=== PATIENT | male | born 1950 | race Caucasian/White ===

== ENCOUNTER → 2018-01-18 10:06 | Outpatient (CLI) | payer OTHER, SELFPAY ==
[2018-01-18 11:49] LABS: Hematocrit 45.5 % (41-53); Hemoglobin 15.7 g/dL (13.5-17.5); Mean Corpuscular HGB Conc 34.4 % (30-36); Mean Corpuscular Hemoglobin 33.7 PG (26-34); Mean Corpuscular Volume 97.9 fL (80-100); Platelet Count 196 X10^3/uL (150-400); Red Blood Cell Count 4.65 X10^6/uL (4.5-5.9); Red Cell Distribution Width 13.2 % (11.6-14.8); White Blood Cell Count 8.5 X10^3/uL (4.5-11.0)
[2018-01-18 12:06] LABS: BUN Creatinine Ratio 24.4 (6-22); Blood Urea Nitrogen 22 mg/dL (9-20); Calcium 9.5 mg/dL (8.4-10.2); Carbon Dioxide 27 mmol/L (22-32); Chloride 103 mmol/L (98-107); Estimated Glomerular Filt Rate > 60.0 mL/min (>60); Glucose 97 mg/dL (80-110); HEMOLYSIS < 15 (0-50); Sodium 143 mmol/L (137-145)
== END ==
PROVIDERS: Visit Provider Orthopaedic Surgery
DX: Z01.818 Encounter for other preprocedural examination (principal)
CPT/HCPCS: 36415; 80048; 85027; 93005; 93010

== ENCOUNTER → 2018-05-25 11:16 | Outpatient (CLI) | payer OTHER, SELFPAY ==
--- NOTE | 2018-05-25 11:19 | DI.RAD.S_ITS ---
PROCEDURE: XR CHEST 2V INDICATIONS: wheeze, cough TECHNIQUE: 2 views of the chest were acquired. COMPARISON: None. FINDINGS: Surgical changes and devices: Patient is status post right shoulder reverse arthroplasty. Lungs and pleura: Increased vascular markings and bilateral hilar region is seen with mild bronchial wall thickening. No focal infiltrate. No pleural effusions or pneumothorax. Mediastinum: Mediastinal contours are normal. Heart size is normal. Bones and chest wall: No suspicious bony abnormalities. Soft tissues appear unremarkable. IMPRESSION: Suggestion of mild reactive airway disease such as bronchitis or asthma. No focal infiltrate. Dictated by: Deven Borges M.D. on 05/25/2018 at 12:04 Approved by: Deven Borges M.D. on 05/25/2018 at 12:05
== END ==
PROVIDERS: PCP Nurse Practitioner Family; Visit Provider Nurse Practitioner Family
DX: R06.2 Wheezing (principal); R05 Cough
CPT/HCPCS: 71046

== ENCOUNTER → 2018-06-16 13:06 | Outpatient (CLI) | payer OTHER, SELFPAY ==
--- NOTE | 2018-06-16 | DI.CT.S_ITS ---
PROCEDURE: CT ABDOMEN W CON INDICATIONS: ABDOMINAL AORTIC ANEURYSM TECHNIQUE: After the administration of intravenous contrast, 5 mm thick sections acquired from the diaphragm to the iliac crests. 5 mm coronal and sagittal reformats were performed. For radiation dose reduction, the following was used: automated exposure control, adjustment of mA and/or kV according to patient size. COMPARISON: Outside Facility, , CT ABDOMEN/PELVIS WITH CONTRAST, 06/22/2016, 11:10. None. FINDINGS: Image quality: Excellent. Lung bases: Lung bases are clear. Heart size is normal. Coronary artery calcifications are present. Solid organs: Diffuse hepatic steatosis. Gallbladder negative. Biliary system is non dilated. Pancreas enhances normally. Spleen is normal in size and enhancement. No adrenal nodules. Bilateral renal cortical atrophy and scarring. Bilateral hilar vascular calcifications are noted. No hydronephrosis. Peritoneum and bowel: Bowel loops demonstrate normal wall thickness and caliber. No free fluid or air. Colonic diverticulosis is seen without evidence of acute complication. Nodes and vessels: Aneurysmal ectasia of the infrarenal abdominal aorta measuring 3.3 x 3.0 cm. There is scattered atheromatous calcified plaques. Miscellaneous: No ventral hernias. Diffuse spondylosis IMPRESSION: Mild aneurysmal ectasia of the infrarenal abdominal aorta. Overall, this is unchanged since 06/22/16. Continued surveillance with serial annual ultrasound examinations could be performed as clinically warranted. Dictated by: Eric Hampton M.D. on 06/16/2018 at 17:14 Approved by: Eric Hampton M.D. on 06/16/2018 at 17:30
== END ==
PROVIDERS: PCP Nurse Practitioner Family; Visit Provider Family Medicine
DX: I71.4 Abdominal aortic aneurysm, without rupture (principal)
CPT/HCPCS: 74160; Q9967

== ENCOUNTER 2019-03-26 10:15 | Day surgery (SDC) | payer OTHER, SELFPAY ==
--- NOTE | 2019-03-26 | PATH_ITS ---
[facility] Accession Number: [id number] . 01 Material submitted: . pylorus - PYLORUS BIOPSIES . 02 Diagnosis: Pylorus, Biopsies: Gastric antral-type mucosa with mild chronic inflammation and features of reactive gastropathy. Negative for Helicobacter organisms by immunohistochemistry. Negative for intestinal metaplasia. Negative for dysplasia or malignancy. [facility] 03/28/2019 1449 Local . 02 Electronically signed: . Sigifredo Johnson MD, PhD, Pathologist NPI- [id number] . 01 Gross description: . PYLORUS BIOPSIES: Received in formalin are 3 fragment(s) of [place], soft tissue measuring 0.1 x 0.1 x 0.1 cm to 0.4 x 0.1 x 0.1 cm submitted entirely in 1 cassette(s) /[facility] 03/26/2019 2233 Local . 02 Microscopic: . An immunohistochemical stain was performed to evaluate for Helicobacter organisms and is negative. The control stain showed appropriate reactivity. . * This test was developed and its performance characteristics determined by [facility]. It has not been cleared or approved by the U.S. Food and Drug Administration. The FDA has determined that such clearance or approval is not necessary. This test is used for clinical purposes. It should not be regarded as investigational or for research. . 02 Pathologist provided ICD-10: K31.9 . 02 CPT . 728969, [id number] Performed at: 01 [facility] [address] [facility], [place], [place] [id number] MD Rony Soni MD Phone: [phone] Performed at: 02 [facility] [id number] [place], [place] [id number] MD Dalila Cooney MD Phone: [phone]
[2019-03-26 10:57] VITALS: BP 159/81; PULSE 86; RESP 20; TEMP 36.2; O2SAT 96; BMI 34.3
[2019-03-26] MEDS: SODIUM CHLORIDE 0.9% 1,000 ML 100 ML IV (11:45)
--- NOTE | 2019-03-26 11:48 | P.HP_ITS ---
History of Present Illness History of Present Illness Date Patient Seen: 03/26/19 Time Patient Seen: 11:49 Chief complaint: [id number] Narrative: Patient has history of gastroesophageal reflux disease recently worsening. He is not currently on antacid medication and is referred here for esophagoduodenoscopy. In addition his last colonoscopy was 3 years ago demonstrated numerous adenomatous polyps which were removed. Patient presents for colorectal screening. He is a 1st degree family relative with colon cancer. On further history denies any recent gastrointestinal symptoms. No nausea, vomiting, abdominal pain, loss of appetite, unexplained weight loss, change in bowel habits, diarrhea, constipation, melena, hematochezia, or bright red blood per rectum. Patient History Medical History Diverticulosis (Acute) HTN (hypertension) (Acute) Surgical History H/O colectomy (Acute) Family & Social History Social History: household members spouse Tobacco & Substance use: Smoking Status Former smoker alcohol intake frequency 0-2 drinks per day Substance Use Type does not use Meds Home Medications and Allergies Home Medications Medication Instructions Recorded Confirmed Type allopurinol 100 mg tablet 100 mg PO DAILY 05/25/18 03/26/19 History aspirin 81 mg tablet,delayed 81 mg PO DAILY 05/25/18 03/26/19 History release clonidine HCl 0.1 mg tablet 0.1 mg PO DAILY tab 05/25/18 03/26/19 History gabapentin 300 mg capsule 600 mg PO TID 05/25/18 03/26/19 History hydrochlorothiazide 25 mg tablet 25 mg PO DAILY 05/25/18 03/26/19 History lisinopril 30 mg tablet 30 mg PO DAILY 05/25/18 03/26/19 History naproxen sodium 220 mg capsule 440 mg PO DAILY cap 05/25/18 03/26/19 History pravastatin 40 mg tablet 40 mg PO DAILY 05/25/18 03/26/19 History tamsulosin 0.4 mg capsule 0.4 mg PO DAILY 05/25/18 03/26/19 History Allergies Allergy/AdvReac Type Severity Reaction Status Date / Time No Known Drug Allergies Allergy Verified 03/26/19 10:51 Review of Systems Review of Systems Narrative: A 10 point review of systems is negative except as noted in the HPI Exam Vital Signs (past 8 hours): - 03/26/19 10:57 Temperature 97.1 F L Pulse Rate 86 Respiratory Rate 20 Blood Pressure 159/81 H Pulse Oximetry 96 Oxygen Delivery Method Room Air Narrative Exam Narrative: General-no acute distress, well nourished HEENT-moist mucous membranes, no scleral icterus Neck-supple, no lymphadenopathy Chest- non labored respirations, clear to auscultation bilaterally Cardiac-regular rate no peripheral edema Abdomen-soft, nontender, non distended Extremities-warm, well perfused Neurological-alert and oriented, no focal deficits Assessment & Plan Assessment and plan (1) Screening for colon cancer: Current visit: Yes Status: Acute (2) GERD (gastroesophageal reflux disease): Current visit: Yes Status: Acute Assessment & Plan narrative: The patient requires colorectal screening and colonoscopy is recommended. In addition he has worsening symptoms of g astroesophageal reflux disease and esophagoduodenoscopy is recommended. Technical details were discussed. Risks, benefits, alternatives explained. Risks including but not limited to myocardial infarction, aspiration, bleeding, pain, missed lesion, incomplete examination, need for further radiographic studies, colonic perforation, and need for major abdominal surgery were discussed. All questions were answered to their satisfaction, and they are in agreement with this plan.
--- NOTE | 2019-03-26 12:13 | PM.OP.ENDO ---
Operative Date/Time/Diagnoses Date of procedure: 03/26/19 Time of procedure: 12:13 Pre-op diagnosis: Gastroesophageal reflux Screening colonoscopy Post-op diagnosis: same Procedure & Clinicians Study performed: Esophagoduodenoscopy Colonoscopy Same procedure as scheduled: Yes Indications: 68-year-old male with worsening gastroesophageal reflux disease and epigastric pain and last colonoscopy 3 years ago with multiple polyps and a family history of colon cancer in first-degree relative. Surgeon: Sandor Rivera Procedure Notes SCOAP/Timeout: Performed Procedure in detail: Patient placed in left lateral decubitus position. Time out was performed. Procedural sedation was administered with Versed and Fentanyl. A bite block was placed. the scope was inserted into the mouth and advanced through the esophagus and into the stomach. The pylorus was intubated and the duodenum was normal. The scope was retroflexed within the stomach and there was a hiatal hernia. There were no ulcers but there was moderate gastritis of the pyloric channel. For random biopsies were taken of the gastritis. The scope was withdrawn into the esophagus the Z line was seen at 35 cm from the incisions. There was no bernal's esophagitis or masses or strictures. Stomach was desufflated and scope removed. Patient tolerated procedure well. Patient placed in left lateral decubitus position. Time out was performed. Procedural sedation was administered with Versed and Fentanyl. A rectal exam demonstrated no external hemorrhoids no internal masses. Colonoscopy scope was placed into the rectum and advanced through the colon to the cecum. The ileocecal valve was identified. The scope was then slowly withdrawn examining colon thoroughly in all directions. The colonoscopy was notable for the following 1. Guerrero diverticulosis 2. No masses or polyps 3. Quality of prep fair Scope withdrawal time: 6 Sedation minutes: 20 Findings: diverticulosis and gastritis Specimen(s): other (Pyloric channel) Complications: none Impression: Gastritis Post-procedure Recommendations: Colonscopy in 5 years Plan for aftercare: Omeprazole
[2019-03-26] MEDS: MIDAZOLAM 5 MG/5 ML VIAL IV (12:16)
[2019-03-26] MEDS: fentaNYL 250 MCG/5 ML INJ IV (12:16)
[2019-03-26] MEDS: LIDOCAINE 4% SOLN 50 ML 20 ML TOP (12:17)
[2019-03-26 12:21] VITALS: BP 124/75; PULSE 69; RESP 15; TEMP 36.6; O2SAT 95
[2019-03-26 12:24] VITALS: BP 120/65; PULSE 81; RESP 16; O2SAT 94
[2019-03-26 12:40] VITALS: BP 122/75; PULSE 76; RESP 16; TEMP 36.4; O2SAT 96
--- NOTE | 2019-03-26 15:07 | SUR.PHASEII ---
Late entry: Care assumed from Tamika. brought in, d/c instructions discussed with both, both voiced an understanding. Pt left when ready and left when ready and in stable condition.
== END 2019-03-26 12:50 | disposition home or self-care (01) ==
PROVIDERS: PCP Nurse Practitioner Family; Referring Provider Surgery; Visit Provider Surgery
PROC: 0DJ08ZZ Inspection of Upper Intestinal Tract, Via Natural or Artificial Opening Endoscopic (ICD-10-PCS; CPT 43235; principal; 2019-03-26 11:30)
PROC: 0DJD8ZZ Inspection of Lower Intestinal Tract, Via Natural or Artificial Opening Endoscopic (ICD-10-PCS; CPT 45378; 2019-03-26 11:30)
DX: K29.50 Unspecified chronic gastritis without bleeding (principal); Z12.11 Encounter for screening for malignant neoplasm of colon; K57.30 Diverticulosis of large intestine without perforation or abscess without bleeding; K21.9 Gastro-esophageal reflux disease without esophagitis; K44.9 Diaphragmatic hernia without obstruction or gangrene
CPT/HCPCS: 43239; G0105; 99152; J2250; J3010

== ENCOUNTER → 2019-08-09 08:29 | Outpatient (CLI) | payer OTHER, SELFPAY ==
--- NOTE | 2019-08-09 09:13 | DI.CT.S_ITS ---
PROCEDURE: CT ABDOMEN PELVIS W CON INDICATIONS: Abdominal aortic aneurysm, without rupture TECHNIQUE: After the administration of intravenous contrast, 5 mm thick sections acquired from the diaphragm to the symphysis. 5 mm coronal and sagittal reformats were acquired. For radiation dose reduction, the following was used: automated exposure control, adjustment of mA and/or kV according to patient size. COMPARISON: [facility], CT, CT ABDOMEN W CON, 06/16/2018, 13:52. FINDINGS: Image quality: Excellent. ABDOMEN: Lung bases: Lung bases are clear. Heart size is normal. Solid organs: Liver is normal in size and enhancement. Gallbladder appears normal. Biliary system is non dilated. Pancreas enhances normally. Spleen is normal in size and enhancement. No adrenal nodules. Kidneys demonstrate normal size and enhancement, without hydronephrosis. Peritoneum and bowel: Bowel loops demonstrate normal wall thickness and caliber. No free fluid or air. Nodes and vessels: No retroperitoneal or mesenteric adenopathy by size criteria. Aorta and inferior vena cava are little if any changed in size, with the mid to distal abdominal aortic aneurysm having previously measured 3.3 cm in maximal axial dimension and in the same area the aortic diameter is 3.5 cm. No iliac artery aneurysm is associated. Miscellaneous: No ventral hernias. PELVIS: Genitourinary: Bladder wall thickness is normal. Miscellaneous: No inguinal hernias or adenopathy. There is a finding of multiple metallic prostate carcinoma radiation seed therapy implants within the prostate, and no associated mass lesion is found. Bones: No suspicious bony lesions. No vertebral body compression fractures. IMPRESSION: 1. A mild mid to distal abdominal aortic aneurysm, fusiform, appears to have slightly enlarged by 2 mm from the study performed approximately one year ago. Contrast enhanced CT scanning is not necessary for followup of this finding but rather obtaining a baseline aortic ultrasound assessment and yearly followup by ultrasound is recommended instead. 2. Prostate radiation therapy seed implants, no evidence of mass lesion at the prostate area, or development of osseous metastatic disease. Dictated by: Luan Boss M.D. on 08/09/2019 at 9:49 Approved by: Luan Boss M.D. on 08/09/2019 at 9:56
== END ==
PROVIDERS: PCP Nurse Practitioner Family; Referring Provider Family Medicine; Visit Provider Family Medicine
DX: I71.4 Abdominal aortic aneurysm, without rupture (principal)
CPT/HCPCS: 74177; Q9967

== ENCOUNTER → 2020-09-29 09:11 | Outpatient (CLI) | payer OTHER, SELFPAY ==
--- NOTE | 2020-09-29 | DI.US.S_ITS ---
PROCEDURE: US ABD AORTA ANEURYSM SCREEN INDICATIONS: ABDOMINAL AORTIC ANEURYSM WITHOUT RUPTURE TECHNIQUE: Real time scanning was performed of the aorta and iliac arteries, with image documentation. COMPARISON: [facility], CT, CT ABDOMEN W CON, 06/16/2018, 13:52. [facility], CT, CT ABDOMEN PELVIS W CON, 08/09/2019, 9:10. FINDINGS: Aorta: Proximal aortic diameter measures 2.5 cm. Mid-aorta measures 2.1 cm. There is a mild distal abdominal aortic aneurysm seen that measures 3.3 cm transversely by 2.8 cm AP, with a craniocaudal extent of 2.9 cm. Iliac arteries: Right common iliac artery measures 1.3 cm. Left common iliac artery measures 1.5 cm. IMPRESSION: A distal abdominal aortic aneurysm is seen that measures 3.3 cm transversely by 2.8 cm AP. Previously, this measured 3.5 cm AP. Dictated by: Zhou Kim M.D. on 09/29/2020 at 9:14 Approved by: Zhou Kim M.D. on 09/29/2020 at 9:16
== END ==
PROVIDERS: PCP Nurse Practitioner Family; Referring Provider Nurse Practitioner Family; Visit Provider Nurse Practitioner Family
DX: I71.4 Abdominal aortic aneurysm, without rupture (principal)
CPT/HCPCS: 76706

== ENCOUNTER → 2021-09-24 09:17 | Outpatient (CLI) | payer MEDICARE, SELFPAY ==
--- NOTE | 2021-09-24 | DI.US.S_ITS ---
PROCEDURE: US RETRO PERITONEAL LIMITED INDICATIONS: Abdominal aortic aneurysm, without rupture TECHNIQUE: Real time scanning was performed of the aorta and iliac arteries, with image documentation. COMPARISON: [facility], CT, CT ABDOMEN W CON, 06/16/2018, 13:52. [facility], CT, CT ABDOMEN PELVIS W CON, 08/09/2019, 9:10. Outside Facility, RG, CT ABDOMEN/PELVIS WITH CONTRAST, 06/22/2016, 11:10. FINDINGS: Aorta: Proximal aortic diameter measures 3 cm. Mid-aorta measures 2.8 cm. There is again seen a distal abdominal aortic aneurysm, which measures 3 cm AP x 3.5 cm transversely, previously measured 2.8 x 3.3 cm. Iliac arteries: Right common iliac artery measures 1.7 cm. Left common iliac artery measures 1.7 cm. IMPRESSION: Mild distal abdominal aortic aneurysm, which is slightly increased in size compared to the prior examination. Dictated by: Zhou Kim M.D. on 09/24/2021 at 9:08 Approved by: Zhou Kim M.D. on 09/24/2021 at 9:10
== END ==
PROVIDERS: PCP Family Medicine; Referring Provider Family Medicine; Visit Provider Family Medicine
DX: I71.4 Abdominal aortic aneurysm, without rupture (principal)
CPT/HCPCS: 76775

== ENCOUNTER → 2022-07-23 08:27 | Outpatient (CLI) | payer MEDICARE, SELFPAY ==
--- NOTE | 2022-07-23 | DI.RAD.S_ITS ---
PROCEDURE: XR LUMBAR SPINE 2-3V INDICATIONS: Spinal stenosis, lumbar region without neurogenic claudicati TECHNIQUE: 3 views of the lumbar spine were acquired. COMPARISON: [facility], US, US RETRO PERITONEAL LIMITED, 09/24/2021, 10:25. [facility], CT, CT ABDOMEN PELVIS W CON, 08/09/2019, 9:10. FINDINGS: Bones: 5 kyb-lok-iwwcitw vertebrae are present. There is 5 mm of retrolisthesis of L2 on L3. 8 mm of retrolisthesis of L3 on L4. Posterior fusion hardware and interbody device placement at L4-L5. Multilevel disc space narrowing and endplate osteophyte formation, as well as facet hypertrophy. No vertebral body compression fractures. No suspicious bony lesions. Soft tissues: Overlying bowel gas pattern is normal. No suspicious soft tissue calcifications. Aneurysmal dilatation of the infrarenal abdominal aorta measuring roughly 42 mm. IMPRESSION: 1. Multilevel degenerative disc and facet disease. 2. Postsurgical sequelae. 3. Infrarenal abdominal aortic aneurysm. Dictated by: Miguel Shirley M.D. on 07/23/2022 at 10:51 Transcribed by: PRABHAKAR on 07/23/2022 at 10:52 Approved by: Miguel Shirley M.D. on 07/23/2022 at 10:59
== END ==
PROVIDERS: PCP Family Medicine; Referring Provider Family Medicine; Visit Provider Family Medicine
DX: M48.061 Spinal stenosis, lumbar region without neurogenic claudication (principal); M47.816 Spondylosis without myelopathy or radiculopathy, lumbar region; M51.36 Other intervertebral disc degeneration, lumbar region; I71.40 Abdominal aortic aneurysm, without rupture, unspecified; Z98.1 Arthrodesis status
CPT/HCPCS: 72100

== ENCOUNTER → 2022-09-29 09:43 | Outpatient (CLI) | payer MEDICARE, SELFPAY ==
--- NOTE | 2022-09-29 | DI.US.S_ITS ---
PROCEDURE: US ABD AORTA ANEURYSM SCREEN INDICATIONS: ABDOMINAL AORTIC ANEURYSM TECHNIQUE: Real time scanning was performed of the aorta and iliac arteries, with image documentation. COMPARISON: [facility], , ABD AORTA ANEURYSM SCREEN, 09/29/2020, 9:25. FINDINGS: Aorta: Proximal aortic diameter measures 2.2 cm. Mid-aorta measures 2.5 cm. Distal aortic diameter is 3.2 cm. Iliac arteries: Right common iliac artery measures 1.3 cm. Left common iliac artery measures 1.5 cm. IMPRESSION: Mild distal aortic aneurysm. Dictated by: Miguel Shirley M.D. on 09/29/2022 at 13:27 Approved by: Miguel Shirley M.D. on 09/29/2022 at 13:28
== END ==
PROVIDERS: PCP Family Medicine; Referring Provider Family Medicine; Visit Provider Family Medicine
DX: I71.40 Abdominal aortic aneurysm, without rupture, unspecified (principal)
CPT/HCPCS: 76706

== ENCOUNTER → 2022-11-30 07:46 | Outpatient (CLI) | payer MEDICARE, SELFPAY ==
--- NOTE | 2022-11-30 | DI.MRI.S_ITS ---
PROCEDURE: MR LUMBAR SPINE WO CON INDICATIONS: SPINAL STENOSIS TECHNIQUE: Noncontrast sagittal T1 spin echo and T2 fast echo, sagittal STIR, and T2 fast spin echo through the lumbar spine. In cases with scoliosis, additional coronal T2 fast spin echo may be performed. COMPARISON: [facility], MR, MR LUMBAR SPINE WITHOUT CONTRAST, 12/16/2017, 10:15 (images only, no report). [facility], CR, XR THORACIC SPINE 2 VIEWS, 11/15/2022, 10:16. [facility], CR, XR LUMBAR SPINE 2-3V, 07/23/2022, 8:24. FINDINGS: Image quality: There is artifact associated with the metallic hardware, including from the spinal stimulator. This examination is limited by involuntary motion artifact. Alignment and Curvature: There is minimal retrolisthesis seen at L2-L3 and L3-L4. Bone Marrow: Marrow is of normal overall signal. No acute vertebral body compression fractures. Spinal Cord: Conus medullaris terminates at the L1 level. Visualized cord demonstrates normal signal and size. Paraspinous Soft Tissues: No paravertebral masses. T12-L1: Mild loss of disc height is seen. Loss of disc signal is seen. Mild generalized disc bulge is seen. No significant neural foraminal or central canal narrowing can be seen. No significant change from the prior. L1-L2: The disc height is well-preserved. Loss of disc signal is seen at this level. Mild to moderate disc bulge is seen, which is slightly eccentric to the right. Mild facet joint hypertrophy is seen. These imaging findings have progressed compared to the prior study. L2-L3: Moderate loss of disc height is seen. Loss of disc signal is seen. Reactive marrow endplate changes are seen, which are hyperintense on T1-weighted and T2-weighted imaging and most consistent with fatty metaplasia (Modic type II changes). At least moderate disc bulge is seen, which is eccentric to the right. Mac VIII facet there is moderate left-sided and at least moderate right-sided neural foraminal narrowing. At least moderate central canal narrowing is seen at this level. These imaging findings have progressed compared to the prior study. L3-L4: At least moderate loss of disc height and disc signal can be seen. Reactive marrow endplate changes are seen which are hypointense on T1-weighted imaging and hyperintense on T2 weighted imaging, which is most consistent with edema (Modic type I changes). At least moderate disc bulge is seen, with a central disc protrusion. There is mild right-sided and moderate left-sided facet hypertrophy. There is moderate to severe bilateral neural foraminal narrowing, left worse than right. There is a degree of compression seen upon the exiting nerve roots. Severe central canal narrowing is seen, as on series 5, image 22. These degenerative changes are progressed compared to 2018. L4-L5: Postoperative changes are seen, with bilateral pedicle screws at L4 and L5. Vertical fixation rods are seen. There is a disc spacer seen at the L4-L5 level. Moderate generalized disc bulge is seen. Moderate facet joint hypertrophy is seen. There is at least moderate left-sided and moderate right-sided neural foraminal narrowing. Mild central canal narrowing is seen. When comparison is made with the prior images, these findings are similar. L5-S1: Moderate to severe loss of disc height and disc signal can be seen. At least moderate disc bulge is seen at this level. There is a right foraminal disc protrusion. Moderate facet joint hypertrophy is seen. There is at least moderate bilateral neural foraminal narrowing seen. There is a degree of compression seen upon the exiting nerve roots. Mild to moderate central canal narrowing is seen. These degenerative changes are slightly progressed compared to the prior. IMPRESSION: Multiple levels of lumbar spine degenerative change are seen, which are progressed at several levels compared to 2018. Stable L4-L5 postoperative change. Dictated by: Zhou Kim M.D. on 11/30/2022 at 11:57 Approved by: Zhou Kim M.D. on 11/30/2022 at 12:03
--- NOTE | 2022-11-30 | DI.MRI.S_ITS ---
PROCEDURE: MR SHOULDER LT WO CON INDICATIONS: NONTRAUMATIC TEAR OF LEFT ROTATOR TECHNIQUE: Noncontrast oblique coronal T2 fast spin echo with fat saturation, oblique sagittal T1 spin echo and T2 fast spin echo with fat saturation, axial T1 spin echo and T2 fast spin echo with fat saturation through the shoulder. COMPARISON: [facility] [place], CR, XR SHOULDER 2+ VIEWS LEFT, 11/08/2022, 9:36. FINDINGS: Image quality: Patient was unable views dedicated shoulder coil due to body habitus, with resulting image degradation and decreased signal to noise ratio. Diagnostic information is obtained. Rotator cuff: There is full-thickness tearing of the supraspinatus tendon and the infraspinatus tendon from their distal insertions with proximal tendon retraction medial to the glenoid rim. Teres minor tendon is grossly intact. The subscapularis tendon demonstrates tendinosis and low-grade partial intrasubstance tearing. There is severe atrophy and severe fatty infiltration of the supraspinatus and infraspinatus muscles. The teres minor and subscapularis muscles are normal in bulk. Bones and bursae: No acute trabecular bone injury or fracture. Humeral head is high riding and abuts the undersurface of the acromion. Diffuse full-thickness cartilage loss is seen throughout the glenohumeral joint with subchondral cystic changes and edema, marginal osteophyte formation, and remodeling of the articular surfaces. Moderate to severe degenerative changes are seen at the acromioclavicular joint with bulky marginal osteophytes. A moderate glenohumeral joint effusion communicates with the subacromial/subdeltoid bursa. There is somewhat prominent fluid in the superior subscapularis recess. Mild synovial hypertrophy is noted. Capsule and soft tissues: There is diffuse labral degeneration and chronic degenerative tearing. The proximal biceps long head tendon is poorly visualized related to image degradation, but is suspected to be torn and distally retracted. No obvious capsular defect is seen. IMPRESSION: 1. Chronic complete tearing of the supraspinatus and infraspinatus tendons with proximal tendon retraction beyond/medial to the glenoid rim. Severe atrophy and fatty infiltration of the supraspinatus and infraspinatus muscles. High-riding humeral head abuts the undersurface of the acromion. 2. Low-grade partial intrasubstance tearing of the subscapularis tendon at the distal insertion superimposed on chronic tendinosis. 3. Biceps long head tendon is poorly visualized, and is suspected to be chronically torn and distally retracted. 4. Severe glenohumeral osteoarthrosis with diffuse full-thickness cartilage loss, subchondral cystic changes and edema, and remodeling of the articular surfaces. 5. Moderate to severe acromioclavicular osteoarthrosis. 6. Moderate glenohumeral effusion communicates with the subacromial/subdeltoid bursa. Approved by: Shabbir Reyes M.D. on 11/30/2022 at 14:12
== END ==
PROVIDERS: PCP Family Medicine; Referring Provider Orthopaedic Surgery; Visit Provider Orthopaedic Surgery
DX: M48.062 Spinal stenosis, lumbar region with neurogenic claudication (principal); M75.122 Complete rotator cuff tear or rupture of left shoulder, not specified as traumatic; M62.512 Muscle wasting and atrophy, not elsewhere classified, left shoulder; M19.012 Primary osteoarthritis, left shoulder; M25.412 Effusion, left shoulder; Z98.1 Arthrodesis status
CPT/HCPCS: 72148; 73221

== ENCOUNTER → 2023-01-27 09:47 | Outpatient (CLI) | payer MEDICARE, SELFPAY ==
--- NOTE | 2023-01-27 09:49 | DI.CT.S_ITS ---
PROCEDURE: CT LUMBAR SPINE WO CON INDICATIONS: SPINAL STENOSIS TECHNIQUE: Noncontrast 3 mm thick sections acquired from the T12 level to the sacrum. Sagittal and coronal reformats were constructed. For radiation dose reduction, the following was used: automated exposure control. COMPARISON: None. FINDINGS: Image quality: Excellent. Bones: There is normal bony alignment. No acute vertebral body compression fractures. No suspicious lytic or blastic bony lesions. No pars defects. L4-5 interbody fusion with good graft incorporation and posterior guzman and screw instrumentation in good position. Posterior left subcutaneous epidural stimulator a pulse generator noted with leads extending into the thoracic epidural space. T12-L1: Disc space narrowing with circumferential disc bulge results in mild central stenosis. No foraminal stenosis. L1-L2: Disc space narrowing with disc bulge and mild central stenosis. No central stenosis. Moderate bilateral foraminal stenosis greater on the right. L2-L3: Disc space narrowing with vacuum disc phenomena and circumferential disc bulge results in [id number] central stenosis. Moderate right and mild left foraminal stenosis. L3-L4: Disc space narrowing with circumferential disc bulge and hypertrophic facet joints present. Moderate central stenosis present. Severe bilateral foraminal stenosis. L4-L5: Discectomy and fusion with right laminotomy. Mild central stenosis. Mild bilateral foraminal stenosis. L5-S1: Disc space narrowing present. No central stenosis. Severe bilateral foraminal stenosis associated with hypertrophic facet joints Soft tissues: Small infrarenal abdominal aortic aneurysm measures 3.3 cm in diameter. Diffuse atherosclerotic vascular calcification. Sigmoid colon end-to- side anastomosis intact. IMPRESSION: Multilevel degenerative disc disease and arthropathy results in varying degrees of central and foraminal stenosis including severe bilateral foraminal stenosis L5-S1 and moderate central stenosis L3-4 Instrumented interbody fusion L4-5 Approved by: Aldo Keita M.D. on 01/27/2023 at 15:04
== END ==
PROVIDERS: PCP Family Medicine; Referring Provider Orthopaedic Surgery Orthopaedic Surgery of the Spine; Visit Provider Orthopaedic Surgery Orthopaedic Surgery of the Spine
DX: M48.062 Spinal stenosis, lumbar region with neurogenic claudication (principal); M48.07 Spinal stenosis, lumbosacral region; M51.36 Other intervertebral disc degeneration, lumbar region; M47.816 Spondylosis without myelopathy or radiculopathy, lumbar region; M47.817 Spondylosis without myelopathy or radiculopathy, lumbosacral region; I71.40 Abdominal aortic aneurysm, without rupture, unspecified; Z98.0 Intestinal bypass and anastomosis status; Z98.1 Arthrodesis status
CPT/HCPCS: 72131

== ENCOUNTER → 2023-02-18 09:17 | Outpatient (CLI) | payer MEDICARE, SELFPAY ==
[2023-02-18 11:36] LABS: Add Manual Diff / Slide Review NO; Basophils Absolute Auto 0 /uL (0-100); Basophils Percent Auto 0.5 % (0-2); Eosinophils Absolute Auto 400 /uL (0-450); Eosinophils Percent Auto 4.6 % (2-4); Hematocrit 43.2 % (41-53); Hemoglobin 15.2 g/dL (13.5-17.5); Lymphocytes Absolute Auto 1500 /uL (1100-4500); Lymphocytes Percent Auto 16.5 % (25-40); Mean Corpuscular HGB Conc 35.1 % (30-36); Mean Corpuscular Hemoglobin 34.5 PG (26-34); Mean Corpuscular Volume 98.2 fL (80-100); Monocytes Absolute Auto 800 /uL (0-900); Monocytes Percent Auto 8.5 % (3-14); Neutrophils Absolute Auto 6300 /uL (1500-7000); Neutrophils Percent Auto 69.9 % (50-75); Platelet Count 179 X10^3/uL (150-400); Red Cell Distribution Width 13.2 % (11.6-14.8)
[2023-02-18 12:06] LABS: Hemoglobin A1C% w Est Avg Glu 5.7 % (4.0-6.0)
[2023-02-18 12:07] LABS: BUN Creatinine Ratio 24.4 (6-22); Blood Urea Nitrogen 20 mg/dL (9-20); Calcium 9.9 mg/dL (8.4-10.2); Carbon Dioxide 24 mmol/L (22-32); Chloride 99 mmol/L (98-107); Estimated Glomerular Filt Rate > 60 mL/min (>60); Glucose 115 mg/dL (80-110); HEMOLYSIS 25 (0-50); Potassium 4.1 mmol/L (3.4-5.1); Sodium 134 mmol/L (137-145)
== END ==
PROVIDERS: PCP Family Medicine; Referring Provider Orthopaedic Surgery Orthopaedic Surgery of the Spine; Visit Provider Orthopaedic Surgery Orthopaedic Surgery of the Spine
DX: Z01.818 Encounter for other preprocedural examination (principal); R73.9 Hyperglycemia, unspecified; Z01.812 Encounter for preprocedural laboratory examination
CPT/HCPCS: 36415; 80048; 83036; 85025; 93005

== ENCOUNTER 2023-04-13 06:20 | Inpatient (IN) | payer MEDICARE, SELFPAY ==
[2023-04-13] VITALS (28 sets, daily range): BP systolic 75–167; BP diastolic 49–92; PULSE 61–102; RESP 7–98; TEMP 36.3–36.7; O2SAT 88–98; BMI 33.7
--- NOTE | 2023-04-13 | DI.RAD.S_ITS ---
PROCEDURE: XR LUMBAR SPINE 2-3V INDICATIONS: L3-4 L5-S1 TLIF TECHNIQUE: 3 views of the lumbar spine were acquired. COMPARISON: [facility], [place], XR LUMBAR SPINE 2-3V, 07/23/2022, 8:24. FINDINGS: Intra operative images demonstrating posterior fusion at L3-4 L4-5 and L5-S1. Hardware is intact with good alignment. IMPRESSION: Intraoperative posterior fusion. Dictated by: Batsheva Dozier M.D. on 04/13/2023 at 21:29 Approved by: Batsheva Dozier M.D. on 04/13/2023 at 21:29
[2023-04-13] MEDS: LACTATED RINGERS 1,000 ML 42 ML IV ×4 (07:24→14:50)
--- NOTE | 2023-04-13 07:38 | PM.PREOP ---
Pre-operative Note Interval Note History & Physical reviewed/Exam performed by Physician: Yes Changes to H&P: No
[2023-04-13] MEDS: CEFAZOLIN VIAL 3 GM in SODIUM CHLORIDE 0.9% 100 ML IV ×2 (08:10→16:08)
--- NOTE | 2023-04-13 08:29 | SUR.OPER ---
Prone on spine table, head in foam head support, padded chest and pelvic supports, gel pad at knees, lower legs supported by pillows; nipples, genitalia and toes free of pressure, arms secured on foam padded arm boards at <90 degrees abduction. Tape over blanket at thigh secured to table.
[2023-04-13] MEDS: BUPIVACAINE 0.25% (PF) 60 ML, EPINEPHrine 0.15 MG INJ (08:45)
[2023-04-13] MEDS: BUPIVACAINE LIPOSOME 266 MG/20 ML VIAL INJ (08:46)
--- NOTE | 2023-04-13 13:16 | P.OP_ITS ---
Operative Date/Time/Diagnoses Date of procedure: 04/13/23 Time of procedure: 07:40 Pre-op diagnosis: 1. L3-4, L5-S1 foraminal stenosis 2. History of L4-5 fusion with hardware 3. Failed back fusion syndrome 4. History spinal cord stimulator implantation 5. Lumbar radiculopathy Post-op diagnosis: same Procedure & Clinicians Procedure: 1. L3-4, L5-S1 posterolateral and posterior interbody fusion 2. L3-4, L5-S1 posterior interbody cage placement 3. L4-5 posterior non-segmental instrumentation removal 4. L4-5 revision laminectomy with exploration of fusion 5. L3-4, L4-5, L5-S1 posterior segmental instrumentation with pedicle screw placement 6. [place] of bone marrow from iliac crest through a separate incision 7. Utilization of microsurgical technique and operating microscope 8. Utilization robotic assisted navigation Same procedure as scheduled: Yes Indications: Patient has been having chronic back pain and worsening lumbar radiculopathy. Patient had previous L4-5 fusion but did not have improvement of his back pain and leg pain mostly on the left side. Patient also had a prior spinal cord stimulator 3 years ago which stopped providing him relief. He has not been using his spinal cord stimulator for over a year and would like to have it removed. He was found to have severe neural foraminal stenosis at L3-4 and L5-S1 b ilaterally correlating with his current symptoms. Patient failed multiple conservative management with worsening pain weakness and numbness in his lower extremity. Patient has been having difficulty performing activity of daily living. After discussing risks benefits of treatment options, patient elected proceed with surgery. Surgeon: Ale Mendoza Hose Cementer: Lucrecia Donaldson Click Yes if Unassisted: No Anesthesia Type: General Operative Notes Closure Type: primary Specimen(s): none sent Prosthetic devices, grafts, tissues, transplants, or devices: Globus CREO MIS screws, Rise cages Applied: catheter Estimated Blood Loss (mL): 350 Blood products transfused: none Procedure in detail: Patient was seen in the preoperative area. Risks and benefits of the surgery was discussed with the patient. Informed consent was obtained from the patient and placed in the chart. Surgical site was marked. Patient was taken to the operative room. General anesthesia was administered. Prophylactic antibiotic was given to the patient less than 30 min before the incision was made. Patient was placed into a prone position on the Brice table. Patient's back was then prepped and draped in the sterile fashion. Time-out was performed at this time. After patient was prepped and draped, patient's PSIS was palpated and marked bilaterally. Small 1 cm incision was made over the PSIS for placement of the reference probes. Two trocar was placed into the PSIS 1 on each side. The reference probe was attached to the trocar of the reference apparatus. At this time the C-arm imaging was used to confirm AP and lateral of L3, L4, L5, and S1 vertebrae and merged the C-arm imaging using the [employer] robotic navigation system with the CT of the lumbar spine. After successful merging was completed and confirmed, skin marker was used to maryan out the skin incision using the [employer] robotic arm. Bilateral incision was made at this time. Using patient's previous scar incision was made over the L3, L4, L5-S1 interval on the left side. Fascia was incised in line with skin incision. Patient's previously placed hardware over the L4-5 level was identified by dissecting down to the level the hardware using a Bovie and a Cuevas. The locking caps which was removed using [employer] screwdriver. The locking guzman was then removed from the tulips of the pedicle screws using a Naveen. The pedicle screws were then removed using the screwdriver. The screws were found to have good purchase at L4-5. Pre templated trajectory was used and guided using the [employer] robotic navigation system for left L3, L4, L5 and S1 pedicle screws and right L3, L4 , L5 and S1 pedicle screws placement. This was done by using the robotic arm to guide the high-speed bur to make a cortical entry point. Next a drill was placed also using the robotic arm and guided using the navigation system drilling partially through bilateral L3, L4, L5, S1 pedicles. Next L3, L4, L5, S1 pedicle screws it was pre templated and measured was placed onto the power ice delivery driver and inserted into the pedicles bilaterally. After all 8 screws were placed C-arm imaging was taken of both AP and lateral to confirm the placement. Excellent placement of the screws were confirmed and a matched precisely with the pre planned screw placement using the navigation system. MARs retractor was inserted using [employer] guidence. Globus MARS retractors was placed inside the incision and docked onto the L3 and L5 lamina. Using microsurgical technique and operating microscope, a L3 and L5 laminectomy and L3-4, L5-S1 facetectomy was performed using a Kerrison rongeur. The laminectomy and facetectomy was performed in order to decompress patient's cauda equina as well as the nerve roots exiting at the L3-4 L5-S1 level. Patient was found have severe lateral recess and neural foramen stenosis which was fully decompressed after the laminectomy facetectomy at both L3-4 and L5-S1 level. More than 75% of the facets were removed during the process of decompression rendering L4-5 level grossly unstable and required a fusion procedure at the same time. The disc space at L3-4, L5-S1 was identified, and a total diskectomy was performed at L3-4, L5-S1 level. The endplates were decorticated using a rasp and shaver. The total diskectomy and decortication was performed at L3-4, L5-S1 level in order to to accomplish a L3-4, L5-S1 fusion. The local bone from the laminectomy and facetectomy was saved for local bone grafting. After the total diskectomy and decortication was completed, Trifecta bone graft material was combined with local bone that was harvested earlier. At this time, a separate skin is incision was made over the iliac crest. A Jamshidi needle was inserted into the iliac crest through a separate skin incision. 5 cc of bone marrow aspiration was obtained through the separate skin incision using a Jamshidi needle from the iliac crest. The bone marrow aspiration was combined with local bone and the Trifecta bone grafting material. The bone grafting material was placed into the L3-4, L5-S1 interbody space along with a expandable cage. The cages were expanded to its maximum height using the torque limiting screwdriver. The disc preparation as well as the cage insertion were also performed under navigation guidance. After the cage was placed, AP and lateral C-arm imaging was taken to confirm placement of the cage and excellent position was confirmed. The fusion mass on the right side of L4-5 was exposed by performing a right- sided hemilaminectomy at L4-5 level. The hemilaminectomy was performed using the Kerrison rongeur to undercut the lamina as well removing additional epidural scar tissue for purpose of decompressing the epidural space. The fusion mass was explored and was found to be solidly fused. Globus MARS retractor was inserted and docked onto the L3-4, L5-S1 posterolateral gutter. Using the power drill, posterior-lateral decortication was performed at L3-4, L5-S1 level until bleeding cortical bone was identified. The remaining bone grafting material was placed into the L3-4, L5-S1 posterior lateral gutter he order to accomplish posterolateral fusion at the L3-4, L5-S1 level. At this time the tulips were attached to the L3, L4-L5 and S1 pedicle screw shanks. This was done in L3, L4-L5 S1 pedicles bilaterallyAfter measuring the length of the rods, they were inserted into the tulips of the pedicle screws and locked in place using locking caps and torque limiting screwdriver bilaterally. Total 8 caps and 2 titanium rods was used in order to complete the posterior instrumentation construct. After all the hardware was placed, and confirmed with AP and lateral C-arm imaging, the wound was then irrigated with sterile normal saline and packed with Ray-John gauze for 3 min to accomplish hemostasis. After the gauze was removed the deep fascia was closed with #1 Vicryl suture. The subcutaneous layer was closed with 2-0 Vicryl. The skin was closed with skin fly. Patient tolerated the procedure well. There were no complications. Neuro monitoring system was used to monitor patient's neurologic status throughout entire procedure. There was no disturbance of the neural monitoring signals throughout the case. Complications: none Post-operative Condition: stable Disposition: PACU Plan for aftercare: Admit to inpatient hospital
[2023-04-13] MEDS: hydrOXYzine 50 MG/ML INJ 25 MG IM (14:23)
[2023-04-13] MEDS: HYDROMORPHONE 1 MG INJ IV ×3 (14:35→14:56)
[2023-04-13] MEDS: KETOROLAC 30 MG/ML VIAL 15 MG IV (14:48)
--- NOTE | 2023-04-13 15:15 | SUR.PHASEI ---
IS provided and verbal instructions given. Patient able to reach 1000mls.
--- NOTE | 2023-04-13 15:22 | SUR.PHASEI ---
Report given to [place]
[2023-04-13] MEDS: LACTATED RINGERS 1,000 ML 125 ML IV ×2 (15:38→21:24)
[2023-04-13] MEDS: OXYCODONE IR 10 MG TABLET PO ×2 (15:42→19:31)
[2023-04-13] MEDS: GABAPENTIN 300 MG CAPSULE 600 MG PO ×2 (15:42→21:24)
[2023-04-13] MEDS: ACETAMINOPHEN 325 MG TABLET 650 MG PO (15:42)
--- NOTE | 2023-04-13 15:43 | SUR.PHASEI ---
Patient transferred to the floor. Report given to Litzy. VS stable. IV and santana patent. Dressing checked with RN.
[2023-04-13] MEDS: SENNOSIDES 8.6 MG TABLET 17.2 MG PO (21:25)
[2023-04-13] MEDS: DOCUSATE 100 MG CAPSULE PO (21:25)
[2023-04-14] VITALS (15 sets, daily range): BP systolic 123–190; BP diastolic 59–89; PULSE 45–110; RESP 18; TEMP 36.4–36.6; O2SAT 86–98
[2023-04-14] MEDS: CEFAZOLIN VIAL 3 GM in SODIUM CHLORIDE 0.9% 100 ML IV (00:26)
[2023-04-14] MEDS: OXYCODONE IR 10 MG TABLET PO ×7 (01:40→23:16)
[2023-04-14 05:46] LABS: Hematocrit 37.8 % (41-53); Hemoglobin 13.2 g/dL (13.5-17.5)
[2023-04-14] MEDS: LACTATED RINGERS 1,000 ML 125 ML IV (05:54)
[2023-04-14] MEDS: ACETAMINOPHEN 325 MG TABLET 650 MG PO ×2 (08:04→15:04)
[2023-04-14] MEDS: PRAVASTATIN 20 MG TABLET 40 MG PO (08:55)
[2023-04-14] MEDS: hydroCHLOROthiazide 25 MG TABLET PO (08:56)
[2023-04-14] MEDS: TAMSULOSIN 0.4 MG CAPSULE PO (08:56)
[2023-04-14] MEDS: lisinopriL 10 MG TABLET 30 MG PO (08:56)
[2023-04-14] MEDS: DOCUSATE 100 MG CAPSULE PO ×2 (08:56→20:17)
[2023-04-14] MEDS: cloNIDine 0.1 MG TABLET PO (08:57)
[2023-04-14] MEDS: allopurinoL 100 MG TABLET PO (09:15)
--- NOTE | 2023-04-14 09:20 | P.DS_ITS ---
History of Present Illness History of Present Illness Chief complaint: INPT Narrative: Julian is a pleasant 72-year-old male who is POD#1 s/p L3-4, L5-S1 posterolateral and posterior interbody fusion with cage placement, L4-[address] Mendoza. Patient reports overall he is doing okay, he is mostly that he has not been up and out of bed since surgery. He expresses eagerness to get out of bed and move around/walk. Reports 8/10 pain but states it is well-controlled with oral pain medication alone. She still has Sam catheter in place. Patient plans to discharge to home where he lives with his who is willing and able to help during his immediate postop recovery. His walker and cane at home for postop use. Denies chest pain, shortness of breath, fevers, chills, nausea, vomiting. Operative Date/Time/Diagnoses Date of procedure: 04/13/23 Time of procedure: 07:40 Pre-op diagnosis: 1. L3-4, L5-S1 foraminal stenosis 2. History of L4-5 fusion with hardware 3. Failed back fusion syndrome 4. History spinal cord stimulator implantation 5. Lumbar radiculopathy Post-op diagnosis: same Procedure & Clinicians Procedure: 1. L3-4, L5-S1 posterolateral and posterior interbody fusion 2. L3-4, L5-S1 posterior interbody cage placement 3. L4-5 posterior non-segmental instrumentation removal 4. L4-5 revision laminectomy with exploration of fusion 5. L3-4, L4-5, L5-S1 posterior segmental instrumentation with pedicle screw placement 6. [place] of bone marrow from iliac crest through a separate incision 7. Utilization of microsurgical technique and operating microscope 8. Utilization robotic assisted navigation Same procedure as scheduled: Yes Indications: Patient has been having chronic back pain and worsening lumbar radiculopathy. Patient had previous L4-5 fusion but did not have improvement of his back pain and leg pain mostly on the left side. Patient also had a prior spinal cord stimulator 3 years ago which stopped providing him relief. He has not been using his spinal cord stimulator for over a year and would like to have it removed. He was found to have severe neural foraminal stenosis at L3-4 and L5-S1 bilaterally correlating with his current symptoms. Patient failed multiple conservative management with worsening pain weakness and numbness in his lower extremity. Patient has been having difficulty performing activity of daily living. After discussing risks benefits of treatment options, patient elected proceed with surgery. Surgeon: Ale Mendoza [employer] Restorer: Lucrecia Donaldson Click Yes if Unassisted: No Anesthesia Type: General Discharge Providers Provider Date of admission: 04/13/23 06:20 Primary care physician: Cally Salas MD Consults: 04/13/23 15:22 Consult to Occupational Therapy Evaluate & Treat Comment: Physician Instructions: Evaluate and treat Consult to Physical Therapy Evaluate & Treat Comment: Physician Instructions: Evaluate and Treat Discharge provider: Kimberly Dozier PA-C Exam Vital Signs (past 8 hours): - 04/14/23 07:00 04/14/23 07:00 04/14/23 08:00 Pulse Rate Blood Pressure 173/82 H Pulse Oximetry 98 Oxygen Delivery Method Room Air Room Air Oxygen Flow Rate 04/14/23 08:14 04/14/23 08:56 04/14/23 08:57 Pulse Rate 70 88 Blood Pressure 190/87 H 190/86 H Pulse Oximetry 93 Oxygen Delivery Method Nasal Cannula Oxygen Flow Rate 1 Fraction of Inspired Oxygen 24 SaO2/FiO2 Ratio 387 Oxygen Delivery Method Nasal Cannula Oxygen Flow Rate 1 Const General: cooperative Resp Effort & Inspection: normal respiratory effort and able to speak in complete sentences Cardio Rate: regular rate Neuro General: patient alert, patient awake and patient oriented x3 Objective Labs 04/14/23 04:45 Labs: Laboratory Results - last 24 hr 04/14/23 04:45 Hgb 13.2 L Hct 37.8 L PFSH Medical History (Updated 03/26/19 @ 11:51 by Sandor Rivera MD) Diverticulosis HTN (hypertension) Surgical History H/O colectomy Social History household members: spouse Smoking Status: Former smoker alcohol intake: current Discharge Assessment & Plan Assessment and Plan Assessment: Stable s/p /p L3-4, L5-S1 posterolateral and posterior interbody fusion with cage placement, L4-5 revision laminectomy. Plan of Treatment: Plan to discharge home today pending voiding trial after Sam removal and patient's ability to get out of bed and ambulate safely. 1) Continue multimodal pain management. 2) No lifting, twisting, deep bending, prolonged sitting. 3) keep dressing clean and dry, no soaking the incision site and posterior times, no topical ointments or creams to the incision site. 4) Follow up in 2 weeks at [facility] for postop appointment, wound check, staple removal. Discharge Plan Discharge Plan Patient Disposition: Home Discharge orders & Medications Prescriptions: No Action clonidine HCl 0.1 mg tablet 0.1 mg PO DAILY pravastatin 40 mg tablet 40 mg PO DAILY allopurinol 100 mg tablet 100 mg PO DAILY aspirin [Adult Low Dose Aspirin] 81 mg tablet,delayed release (DR/EC) 81 mg PO DAILY tamsulosin 0.4 mg capsule 0.4 mg PO DAILY lisinopril 30 mg tablet 30 mg PO DAILY hydrochlorothiazide 25 mg tablet 25 mg PO DAILY gabapentin 300 mg capsule 600 mg PO TID naproxen sodium [Aleve] 220 mg capsule 440 mg PO DAILY Follow up/Referrals: Cally Salas MD [Primary Care Provider] - Ale Mendoza MD [Physician] - (Follow-up no sooner than 2 weeks as scheduled at [facility]) Diet/Activity/Treatments Diet: Diet as Tolerated Activity: No deep bending, twisting, lifting greater than 10 lb. No prolonged sitting. Cold/Heat Therapy: Heat to the low back for muscle spasm. Ice as needed for pain control. Skin/Wound/Dressing Care Report to your healthcare provider any signs of infection, such as:: chills, fever, night sweats, unusual drainage and unusual redness Dressing: Keep dressing intact until 2 week postop appointment. Keep dressing clean and dry. No soaking the incision site and posterior tubs. No topical ointments or creams to the incision site. Visit Report/Discharge Packet Instructions: DI for Prescription Opioid Use, DI for Transforaminal Lumbar Interbody Fusion Stand Alone Forms: Patient Portal/API, Stroke Signs & Symptoms Discharge Data Primary Care Provider: Cally Salas Quality VTE Deep Vein Thrombosis/Pulmonary Embolism Present on Admission: No
[2023-04-14 09:50] LABS: MRSA (Nasal) PCR Not Detected (Not Detect)
--- NOTE | 2023-04-14 11:27 | OT.IP.EVAL ---
Current Diagnoses Spondylolisthesis, lumbar region (04/13/23) Spinal stenosis, lumbar region with neurogenic claudication (04/13/23) Arthrodesis status (04/13/23) Surgery Performed Operation Date: 04/13/23 07:45 Actual Procedures p L3-4, L5-S1 TLIF with posterior instrumentation, L3-S1 PSF with instrumentation-Robot - Ale Mendoza MD s Spinal Cord Stimulator Removal - Ale Mendoza MD Past Medical History (Last Reviewed 03/26/19 @ 11:49 by Sandor Rivera MD) Diverticulosis HTN (hypertension) Surgical History (Last Reviewed 03/26/19 @ 11:49 by Sandor Rivera MD) H/O colectomy Occupational Therapy Inpatient Evaluation/Re-Eval M1 PT/OT-IP Prior Functional Status Start: 04/14/23 13:12 Freq: NEEDED Status: Active Protocol: Document 04/14/23 13:12 [facility] (Rec: 04/14/23 13:35 [facility] [id number]) Medical Review Prior Functional Status Communication Independent Mobility and Gait For the past 1-1/2 month pt states having to use his 4ww. Activities of Daily Living and IADL's Pt had pain with ADL and IADL needs. Social History Household Members spouse Living Arrangements House Number of Floors (Floors) One Floor Number of Stairs To Enter/Railing? 2 steps with right rail up. Home Environment High Toilet,Walk in Shower, Built-In Shower Seat Home Equipment Four Wheel Walker,Straight Cane,Manual Wheelchair,[employer]otive Warranty Administrator ,Grab Bars In Shower M2 OT-IP Current Condition Start: 04/14/23 13:12 Freq: Status: Active Protocol: Document 04/14/23 13:12 [facility] (Rec: 04/14/23 13:35 [facility] [id number]) Occupational Therapy Current Condition Current Condition Evaluation Date 04/14/23 Treatment Diagnosis S/P L3-4, L5-S1 TLIF with post inst L3-S1 Diagnosis Onset Date 04/13/23 Post Operative Precautions Lumbar Precautions Log Roll,No Twisting,Limit Bending,Lifting Restriction of 10 lbs,Gait Belt above Incisional Area M3 OT- IP Subjective and Pain Start: 04/14/23 13:12 Freq: Status: Active Protocol: Document 04/14/23 13:12 [facility] (Rec: 04/14/23 13:35 [facility] [id number]) OT- Subjective Occupational Therapy Visit Type Type Initial Evaluation Visit Start Time 10:50 Visit Stop Time 11:27 Occupational Therapy Visit Comments Patient Comments Pt in the bathroom when OT came to see the pt. Patient/Caregiver Goals To go home. OT Pain Assessment Pain When Pain Assessed During Mobility Pain Present Pain Present Pain Reported Location back Intensity 10 M4 OT- IP ADL's Start: 04/14/23 13:12 Freq: Status: Active Protocol: Document 04/14/23 13:12 [facility] (Rec: 04/14/23 13:35 [facility] [id number]) OT [id number]-Teppjnd General Evaluation Self-Feeding Ability Independent OT ADL-Grooming Comments OT Grooming Comments Pt refused. OT ADL-Oral Care Comments Oral Care Comments Pt refused. OT ADL-Dressing General Eval Areas Needing Assistance Socks OT ADL-Toileting Comments OT Toileting Comments Pt not able to use the toilet at this time, santana just taken out. OT ADL-Bathing Comments OT Bathing Comments Not performed. Pt insists his built in seat at home in high enough to use and that his will assist him. M5 OT- IP IADL's Start: 04/14/23 13:12 Freq: Status: Active Protocol: Document 04/14/23 13:12 [facility] (Rec: 04/14/23 13:35 [facility] [id number]) OT-Instrumental Activities of Daily Living Deficits IADL Deficits Identified Deficits Home Safety Awareness Awareness of Need for Assistance at Home Decreased Awareness Home Safety Comments Pt very insistent on his care at this time. Pt insists his will be able to assist him for all his needs. Meal Preparation Meal Preparation Caregiver Provides Assist Physical Education Specialist Physical Education Specialist Caregiver Provides Assist M6 OT- IP Functional Cognition Start: 04/14/23 13:12 Freq: Status: Active Protocol: Document 04/14/23 13:12 [facility] (Rec: 04/14/23 13:35 [facility] [id number]) Cognitive Factors Limiting Selfcare Function Cognitive Ability Level of Alertness Alert Patient Orientation Name,Place,Situation Attention Span Ability Capable of Focused Attention, Capable of Sustained Attention Ability to Follow Commands Able to Follow One Step Commands with Increased Time, Able to Follow One Step Commands with Repetition Safety Awareness Decreased Ability to Apply Precautions,Underestimates Need for Assistance Cognitive Comments Cognitive Assessment Comments Pt very insistent of his care and needing cues for follow his back precautions. OT- Vision and Hearing OT- Hearing Assessment OT- Hearing Assessment WFL OT- Vision Assessment Visual Acuity WFL M7 OT- IP Mobility and Balance Start: 04/14/23 13:12 Freq: Status: Active Protocol: Document 04/14/23 13:12 [facility] (Rec: 04/14/23 13:35 [facility] [id number]) OT-Transfer Assessment Sit to and From Stand Sit to and from Stand Moderate Assistance,2 Person Assistance Transfers Transfer Ability Moderate Assistance,2 Person Assistance Technique Transfer Destination Chair,Toilet Transfer Technique Stand Step Pivot Devices Transfer Assistive Devices Gait Belt,Front Wheeled Walker Comments Mobility Comments MODA X 2 to stand to the FWW. VC to get his feet in between the fww legs and assist for his balance and to guide the FWW to get to the recliner. VC to reach back to the arms of the recliner to sit. Pt insistent that he will be able to use his 4ww and asked the pt to have his 4ww here for able to have therapy assess his mobility and safety. OT- Balance Assessment Sitting Balance and Reactions Static Sitting Balance Ability Good Dynamic Sitting Balance Ability Fair Standing Balance and Reactions Static Standing Balance Ability Poor Dynamic Standing Balance Ability Poor M8 OT- IP Objective Assessments Start: 04/14/23 13:12 Freq: Status: Active Protocol: Document 04/14/23 13:12 [facility] (Rec: 04/14/23 13:35 [facility] [id number]) OT Gross Range of Motion Upper Extremity Range of Motion Assessment Left Impaired OT Strength Upper Extremity Strength Assessment Left Impaired M9 OT- IP Assessment and Plan Start: 04/14/23 13:12 Freq: Status: Active Protocol: Document 04/14/23 13:12 [facility] (Rec: 04/14/23 13:35 [facility] [id number]) OT Summary Assessment and Plan Potential Rehabilitation Potential Good Analytic Complexity at Evaluation Moderate Summary OT Impairments Pain,Balance,Functional Mobility,Self-Feeding,Grooming ,Dressing,Toileting,Bathing, Toilet Transfers,Shower Transfers,Activity Tolerance Progress Towards Goals Progressing Toward Goals,Slow Progress due to Pain,Slow Progress due to Medical Issues Assessment Summary Pt MOD complexity and main barriers are pain, needing extensive two person assist for all needs at this time. In addition pt has peripheral neuropathy which is also limiting his function. Pt adamant of going home. At his current function, pt would benefit from skilled rehab. Hopefully pt improves and able to go home with assist. Goals Self-Feeding Goal Independent Grooming Goal Independent Dressing Goal Minimal Assistance Toileting Goal Standby Assistance Bathing Goal Minimal Assistance Toilet Transfer Goal Standby Assistance Shower Transfer Goal Standby Assistance Days to Meet Goals 15 Frequency of Treatment Frequency Of Treatment Once a Day Treatment Plan OT Treatment Plan ADL Training,Functional Mobility,Patient/Family Education,Discharge Planning Other Treatment Recommendations and Next Stand at sink for standing ADL Treatment Focus needs with FWW. Discharge Recommendations OT Discharge Recommendations SNF Rehab,Home vs SNF pending progress Home Equipment Needs FWW, sock aid, BSC Transportation Needs at Discharge Wheelchair/Cabulance
--- NOTE | 2023-04-14 12:44 | P.PN_ITS ---
Subjective Subjective Interval history: Julian is a 72-year-old male who is POD#1 s/p L3-4, L5-S1 posterolateral and posterior interbody fusion with cage placement, L4-[address] Mendoza. Patient reports overall he is doing okay, he is mostly upset that he has not been up and out of bed since surgery. He expresses eagerness to get out of bed and move around/walk. Reports 8/10 pain but states it is well-controlled with oral pain medication alone. She still has Sam catheter in place. Patient plans to discharge to home where he lives with his who is willing and able to help during his immediate postop recovery. Has walker and cane at home for postop use. He states he does not feel ready to d/c to home today as him and his were preparing for a two day hospital stay and he still feels not mobile enough to d/c. Denies chest pain, shortness of breath, fevers, chills, nausea, vomiting. Exam Vital Signs (past 8 hours): - 04/14/23 07:00 04/14/23 07:00 04/14/23 08:00 Temperature Pulse Rate Blood Pressure 173/82 H Pulse Oximetry 98 Oxygen Delivery Method Room Air Room Air Oxygen Flow Rate 04/14/23 08:14 04/14/23 08:32 04/14/23 08:56 Temperature Pulse Rate 45 L 70 Blood Pressure 190/87 H Pulse Oximetry 93 95 Oxygen Delivery Method Nasal Cannula Oxygen Flow Rate 1 04/14/23 08:57 04/14/23 11:29 Temperature 97.8 F Pulse Rate 88 Blood Pressure 190/86 H 124/89 Pulse Oximetry Oxygen Delivery Method Oxygen Flow Rate Fraction of Inspired Oxygen 24 SaO2/FiO2 Ratio 387 Oxygen Delivery Method Nasal Cannula Oxygen Flow Rate 1 Resp Effort & Inspection: normal respiratory effort and able to speak in complete sentences Cardio Rate: regular rate Neuro General: patient alert and patient awake Speech: speech normal Extrem Other: Sensation intact throughout bilateral lower extremities. 5/5 strength wtih DF, PF, EHL. Good AROM of bl knees. Brisk capillary refill. Objective Labs 04/14/23 04:45 Labs: Laboratory Results - last 24 hr 04/13/23 04/14/23 08:15 04:45 Hgb 13.2 L Hct 37.8 L Nasal Screen MRSA (PCR) Not detected [facility] Medical History (Updated 03/26/19 @ 11:51 by Sandor Rivera MD) Diverticulosis HTN (hypertension) Surgical History H/O colectomy Social History household members: spouse Smoking Status: Former smoker alcohol intake: current Assessment & Plan Post-op Postoperative Procedures: Procedures Operation Date: 04/13/23 07:45 Actual Procedure Side Surgeon p L3-4, L5-S1 TLIF with posterior instrumentation, L3-S1 PSF with instrumentation-Robot Ale Mendoza MD s Spinal Cord Stimulator Removal Ale Mendoza MD Postoperative plan narrative: Remove Sam catheter today and encouraged patient ambulation. We will continue to work on mobility today and plan on patient discharging to home tomorrow pending patient is able to void on his own. No twisting, deep bending, lifting or prolonged sitting. Keep dressing clean and dry no soaking the incision site and pulls or tubs, no topical ointments or creams to the incision site. Follow-up as scheduled [facility] in 2 weeks for postop, wound check, staple removal. Continue multimodal pain management. Quality VTE Deep Vein Thrombosis/Pulmonary Embolism Present on Admission: No
--- NOTE | 2023-04-14 13:42 | CM.DANOTE ---
Initial DCP Assessment Note Pt is a 72 yo male, resident of [place], now POD#1 from TLIF PCP: Cally Salas Payer: Sean DAVISON Reviewed chart, pt discussed in multidisciplinary rounds this morning. Patient lives with spouse, mostly indp at baseline although has been living with a lot of pain w/ADLs, spouse assists with higher ADLs and driving. Patient has planned to return home with spouse to assist. Therapies recommending SNF at this time, patient will not consider this. Anticipate discharge home w/spouse over the next 24-48 hours. No barriers identified at this time to patient's safe discharge home w/family to assist once pain is managed reasonably in preparation for home; close outpatient f/u recommended. CM team will plan to follow closely in case any DC needs or concerns arise. TOMI Gonzalez Discharge Planning/Care Management CM Discharge Assessment Start: 04/14/23 13:37 Freq: Status: Active Protocol: Document 04/14/23 13:37 [facility] (Rec: 04/14/23 13:42 [facility] [id number]) Discharge Planning Assessment Assigned Check Pilot TOMI Royal DPOA/Assigned Designee Name Kathie Larry, spouse Contact Information [phone] Advance Directives? Yes Advance Directives on File No History Provided By Family Member,Medical Record Prior Living Arrangements House Household Members spouse Type of transporation used prior to Relies on Others admit Independent with ADL's Yes: Daily pain with ADLs Is patient alert and oriented? Yes Needs Assistance With Bathing,Meal Prep,Home Chores / Shopping Patient/Family Preference OP PT Therapy Barriers to Discharge No Comment Home w/spouse expected upon discharge. Patient does not want to consider SNF Discharge Plan Home Transportation Arrangement Spouse
--- NOTE | 2023-04-14 15:38 | PT-IP ANOTE ---
PT reviews chart in preparation of POD1 eval. Pt lying in bed with left leg dangling off. He is not agreeable to bringing it back up into the bed. 4 rails are already up. Pt adamantly refuses PT evaluation and trying to move with PT. He states he cannot even sit on the side of the bed when PT asks if he will try this. Pt is unwilling to participate with PT today. His biggest complaint is neuropathy in his legs. He states he knows he has to do PT tomorrow to go home but he might not even be able to go home tomorrow. Recommend surgeon or PA discussing acute PT, OOB and d/c with pt. Con't PT efforts next date.
[2023-04-14] MEDS: GABAPENTIN 300 MG CAPSULE 600 MG PO (20:17)
[2023-04-14] MEDS: SENNOSIDES 8.6 MG TABLET 17.2 MG PO (20:17)
[2023-04-15] VITALS (16 sets, daily range): BP systolic 163–177; BP diastolic 75–82; PULSE 73–109; RESP 17–20; TEMP 36.3–36.5; O2SAT 87–98
[2023-04-15] MEDS: OXYCODONE IR 10 MG TABLET PO ×4 (04:09→21:02)
--- NOTE | 2023-04-15 07:54 | PM.PNPO.1 ---
Subjective Subjective Interval history: Sanjay is a 72-year-old male patient who is postop day #2 s/p L3-4, L5-S1 posterolateral and posterior interbody fusion with cage placement, L4-[address] Mendoza. He is lying uncomfortably in bed during our visit today, he complains that he has been unable to move since surgery. After lots of questioning, he explains that his lack of movment is due to back pain and discomfort. He denies any motor function loss. He refused PT yesterday. He removed his IV access himself yesterday so he has not gotten any IV medication. He is being given 10mg Oxycodone Q3 hours for pain. Left sided back pain > right sided back pain. Has been able to urinate on his own with bedside urinal. States he cannot feel either foot and this is not new since surgery. Denies chest pain, SOB, fever, chills, nausea, vomiting. Exam Vital Signs (past 8 hours): Fraction of Inspired Oxygen 24 SaO2/FiO2 Ratio 387 Oxygen Delivery Method Room Air Oxygen Flow Rate 0 Narrative Exam Narrative: lying uncomfortably in bed Resp Effort & Inspection: normal respiratory effort and able to speak in complete sentences Cardio Rate: regular rate Skin Other: Unable to check dressing on back due to patients inability to move in bed during our interview Extrem Other: Declines sensation to bilateral feet, states he can feel bilateral shins and thighs however (no specific dermatome of reported sensation loss). 5/5 strength with DF, PF, EHL. Limited ROM of bilateral knees d/t back pain, althought better ROM with L knee than R. Brisk capillary refill, pulses intact. Psych Mood: irritable mood Affect: irritable affect Objective Labs 04/14/23 04:45 Labs: Laboratory Results - last 24 hr 04/13/23 08:15 Nasal Screen MRSA (PCR) Not detected PFSH Medical History (Updated 03/26/19 @ 11:51 by Sandor Rivera MD) Diverticulosis HTN (hypertension) Surgical History H/O colectomy Social History household members: spouse Smoking Status: Former smoker alcohol intake: current Assessment & Plan Post-op Postoperative Procedures: Procedures Operation Date: 04/13/23 07:45 Actual Procedure Side Surgeon p L3-4, L5-S1 TLIF with posterior instrumentation, L3-S1 PSF with instrumentation-Robot Ale Mendoza MD s Spinal Cord Stimulator Removal Ale Mendoza MD Postoperative status narrative: Poor pain control, poor mobility. Postoperative plan narrative: Stressed the importance of patient working with PT today to asses mobility status before he can be d/c. Discussed d/c to SNF vs home. Patient seems apprehensive to dc to SNF however remains adamant that he cant move from his hospital bed. Continue multimodal pain management. No twisting, deep bending or lifting. Keep dressing clean and dry. Follow up at [facility] in 2 weeks (no sooner) for post-op appointment, wound check, staple removal. Quality VTE Deep Vein Thrombosis/Pulmonary Embolism Present on Admission: No
[2023-04-15] MEDS: allopurinoL 100 MG TABLET PO (08:42)
[2023-04-15] MEDS: GABAPENTIN 300 MG CAPSULE 600 MG PO ×3 (08:42→21:01)
[2023-04-15] MEDS: TAMSULOSIN 0.4 MG CAPSULE PO (08:43)
[2023-04-15] MEDS: hydroCHLOROthiazide 25 MG TABLET PO (08:43)
[2023-04-15] MEDS: lisinopriL 10 MG TABLET 30 MG PO (08:43)
[2023-04-15] MEDS: DOCUSATE 100 MG CAPSULE PO ×2 (08:43→21:02)
[2023-04-15] MEDS: PRAVASTATIN 20 MG TABLET 40 MG PO (08:43)
[2023-04-15] MEDS: cloNIDine 0.1 MG TABLET PO (08:43)
--- NOTE | 2023-04-15 10:50 | PT.IIE ---
Current Diagnoses Spondylolisthesis, lumbar region (04/13/23) Spinal stenosis, lumbar region with neurogenic claudication (04/13/23) Arthrodesis status (04/13/23) Surgery Performed Operation Date: 04/13/23 07:45 Actual Procedures p L3-4, L5-S1 TLIF with posterior instrumentation, L3-S1 PSF with instrumentation-Robot - Ale Mendoza MD s Spinal Cord Stimulator Removal - Ale Mendoza MD Surgical History (Last Reviewed 03/26/19 @ 11:49 by Sandor Rivera MD) H/O colectomy Medical History (Last Reviewed 03/26/19 @ 11:49 by Sandor Rivera MD) Diverticulosis HTN (hypertension) Physical Therapy Inpatient Evaluation/Re-Eval M1 PT/OT-IP Prior Functional Status Start: 04/14/23 13:12 Freq: NEEDED Status: Active Protocol: Document 04/14/23 13:12 [facility] (Rec: 04/14/23 13:35 [facility] [id number]) Medical Review Prior Functional Status Communication Independent Mobility and Gait For the past 1-1/2 month pt states having to use his 4ww. Activities of Daily Living and IADL's Pt had pain with ADL and IADL needs. Social History Household Members spouse Living Arrangements House Number of Floors (Floors) One Floor Number of Stairs To Enter/Railing? 2 steps with right rail up. Home Environment High Toilet,Walk in Shower, Built-In Shower Seat Home Equipment Four Wheel Walker,Straight Cane,Manual Wheelchair,Comb Setter ,Grab Bars In Shower M1 PT/OT-IP Prior Functional Status Start: 04/14/23 15:29 Freq: NEEDED Status: Active Protocol: Document 04/15/23 10:50 AB (Rec: 04/15/23 13:39 AB [id number]) Medical Review Prior Functional Status Medical History Reviewed Yes Communication able to make needs known Mobility and Gait pt stated that he was modified independent with all mobilities and ambulation without AD but occasionally uses a 4WW; stated that his L knee give out on him and has feet neuropathy Activities of Daily Living and IADL's per OT note: Pt had pain with ADL and IADL needs. Social History Household Members spouse Living Arrangements House Number of Floors (Floors) One Floor Number of Stairs To Enter/Railing? 2 steps R rail ascending Home Environment High Toilet,Walk in Shower, Built-In Shower Seat Home Equipment Four Wheel Walker,Straight Cane,Manual Wheelchair,Grab Bars In Shower M2 PT-IP Current Condition Start: 04/14/23 15:29 Freq: NEEDED Status: Active Protocol: Document 04/15/23 10:50 AB (Rec: 04/15/23 13:39 AB [id number]) Physical Therapy Current Condition Current Condition Evaluation Date 04/15/23 Treatment Diagnosis L3-4,L5S1 TLIF; L4-5 instrumentation; difficulty in walking Onset Date 04/13/23 M3 PT-IP Subjective Start: 04/14/23 15:29 Freq: NEEDED Status: Active Protocol: Document 04/15/23 10:50 AB (Rec: 04/15/23 13:39 AB [id number]) Subjective Physical Therapy Visit Type Type Initial Evaluation Visit Start Time 10:50 Visit Stop Time 11:45 Number of BILINGUAL LOAN PROCESSOR Visits 0 Physical Therapy Visit Comments Patient Comments agreeable to do PT Therapy Pain Assessment Pain When Pain Assessed At Rest Pain Present Pain Present Pain Reported Location back Intensity 9 Scale Used Numeric (0 - 10) Pain Management Techniques Distraction,Modification of Treatment,Re-positioning, Timing of Activity with Medications M4 PT-IP Mobility and Gait Start: 04/14/23 15:29 Freq: NEEDED Status: Active Protocol: Document 04/15/23 10:50 AB (Rec: 04/15/23 13:39 AB [id number]) PT-Bed Mobility Assessment Supine to Sit Supine to Sit Maximum Assistance,2 Person Assistance,Head of Bed Elevated Scooting Scooting to Edge of Bed Maximum Assistance PT-Transfer Assessment Sit to and From Stand Sit to and from Stand Maximum Assistance,Total Assistance,Use of Upper Extremities Equipment Transfer Assistive Device Gait Belt,Front Wheeled Walker Orthotic/Prosthetic Devices or Brace: No Transfers Transfer Destination Chair Transfer Technique Mechanical Lift Transfer Ability Level of Assist Total Assistance,2 Person Assistance,Use of Upper Extremities Comments Mobility Comments pt supine in bed and spouse in room. spouse stated that she cannot assist pt much at home . obtained PLOF and home set up from pt and spouse. reviewed post-op folder and reviewed contents. educated pt and spouse regarding back precautions and log roll bed mobility. pt is with confusion and slow processing requiring repeated cues and instructions. pt completed supine to sit log roll max A x 2 and max cues with 3 attempts to sit. pt with difficulty following directions. pt sat on EOB requiring max A for sitting balance. presents with increase posterior trunk lean. completed sit to stand x 2 max A x 2 to total A x 2. pt unable to maintain standing with (+) BLE knee buckling. Assisted pt to chair with mechanical lift. nurse in room to assist. max A x 2 for bed positioning. call light and table placed within reach. informed spouse that pt may require SNF at this time and spouse agreed. Gait Assessment Comments Gait Comments unable at this time PT-Balance Assessment Sitting Balance and Reactions Static Sitting Balance Ability Poor Dynamic Sitting Balance Ability Poor Standing Balance and Reactions Static Standing Balance Ability Poor Dynamic Standing Balance Ability Poor Device Used FWW M5 PT-IP Objective Assessments Start: 04/14/23 15:29 Freq: NEEDED Status: Active Protocol: Document 04/15/23 10:50 AB (Rec: 04/15/23 13:39 AB [id number]) Orientation Orientation/Cognition Level of Alertness Confusional State Orientation Name,Age,Place,Situation Safety Awareness Decreased Safety Awareness Memory Description Short Term Impaired Gross Range of Motion Lower Extremity ROM Assessment Within Functional Limits Strength Lower Extremity Strength Assessment Bilaterally Impaired Comments Strength Comments RLE: 3-/5 LLE: 3+/5 Sensation Assessment Sensation Gross Sensation Right LE Impaired,Left LE Impaired Sensation Description Numbness Comments Sensation Comments B feet nueropathy per pt Muscle Tone Muscle Tone WNL Yes M6 PT-IP Treatment Start: 04/14/23 15:29 Freq: NEEDED Status: Active Protocol: Document 04/15/23 10:50 AB (Rec: 04/15/23 13:39 AB [id number]) Physical Therapy Treatment Education Education Provided Precautions,Weight Bearing Status,Post-Op Packet,Safety M7 PT-IP Assessment and Plan Start: 04/14/23 15:29 Freq: NEEDED Status: Active Protocol: Document 04/15/23 10:50 AB (Rec: 04/15/23 13:39 AB [id number]) PT Summary Assessment and Plan Potential Rehabilitation Potential Fair Status of Condition at Evaluation Evolving Summary Impairments Pain,ROM,Strength,Balance, Coordination,Sensation,Tone, Cognition,Bed Mobility, Transfers,Gait,Activity Tolerance Assessment Summary pt is a 72 y/o M s/p L3-4,L5S1 TLIF; L4-5 instrumentation and lami POD 2. pt requiring max A x 2 to total A x 2 with sit to stand and unable to complete a stand pivot transfer requiring use of mechanical lift to get to the chair. pt presents with BLE weakness with (+) B knee buckling. pt also has decrease safety awareness with difficulty following instructions. pt will require SNF rehab at this time. will continue to assess progress. Goals Bed Mobility Goal Minimal Assistance Transfer Goal Minimal Assistance,Front Wheeled Walker Gait Goal Minimal Assistance,Front Wheel Walker Gait Distance 50 Other Goals improve bed mobility, transfers and ambulation using fWW SBA ~ 150 ft up/down 2 steps using SPC/BOAT RENTAL CLERK CGA Days to Meet Goals 10 Frequency of Treatment Frequency Of Treatment Twice a Day Treatment Plan Physical Therapy Treatment Plan Bed Mobility Training,Transfer Training,Gait Training, Therapeutic Exercise,Balance Retraining,Post Op Education, Discharge Planning,Hot or Cold Pack,Neuromuscular Re-ed, Coordination Retraining,Manual Therapy Precautions Lumbar Precautions Log Roll,No Twisting,Limit Bending,Lifting Restriction of 10 lbs,Gait Belt above Incisional Area Recommendations To Nursing Amount of Assist Needed Mechanical Lift Discharge Recommendations PT Discharge Recommendations SNF Rehab Transportation Needs at Discharge Wheelchair/Cabulance
--- NOTE | 2023-04-15 13:58 | PC.NURSE ---
Walked into patients room. Witnessed pt attempting to get out of bed. Advised pt to use call light. pt frank lifted back to bed no comp of pain or discomfort.
--- NOTE | 2023-04-15 15:05 | PT.IPTN ---
Current Diagnoses Spondylolisthesis, lumbar region (04/13/23) Spinal stenosis, lumbar region with neurogenic claudication (04/13/23) Arthrodesis status (04/13/23) Surgery Performed Operation Date: 04/13/23 07:45 Actual Procedures p L3-4, L5-S1 TLIF with posterior instrumentation, L3-S1 PSF with instrumentation-Robot - Ale Mendoza MD s Spinal Cord Stimulator Removal - Ale Mendoza MD Physical Therapy Treatment Note M2 PT-IP Current Condition Start: 04/14/23 15:29 Freq: NEEDED Status: Active Protocol: Document 04/15/23 10:50 AB (Rec: 04/15/23 13:39 AB [id number]) Physical Therapy Current Condition Current Condition Evaluation Date 04/15/23 Treatment Diagnosis L3-4,L5S1 TLIF; L4-5 instrumentation; difficulty in walking Onset Date 04/13/23 M3 PT-IP Subjective Start: 04/14/23 15:29 Freq: NEEDED Status: Active Protocol: Document 04/15/23 15:05 AB (Rec: 04/15/23 18:37 AB [id number]) Subjective Physical Therapy Visit Type Type Treatment Note Visit Start Time 15:05 Visit Stop Time 15:40 Number of RADIAL DRILL PRESS OPERATOR Visits 0 Physical Therapy Visit Comments Patient Comments need encouragement to participate Therapy Pain Assessment Pain When Pain Assessed At Rest Pain Present Pain Present Pain Reported Location back Intensity 9 Scale Used Numeric (0 - 10) Pain Behaviors Facial Grimacing,Guarding Pain Management Techniques Distraction,Modification of Treatment,Re-positioning, Timing of Activity with Medications M4 PT-IP Mobility and Gait Start: 04/14/23 15:29 Freq: NEEDED Status: Active Protocol: Document 04/15/23 15:05 AB (Rec: 04/15/23 18:37 AB [id number]) PT-Bed Mobility Assessment Rolling Type of Rolling Log Rolling Level of Assist Maximal Assistance,2 Person Assistance Supine to Sit Supine to Sit Maximum Assistance,2 Person Assistance,Head of Bed Elevated,Bedrails Sit to Supine Sit to Supine Maximum Assistance,2 Person Assistance,Bedrails PT-Transfer Assessment Sit to and From Stand Sit to and from Stand Maximum Assistance,2 Person Assistance,Use of Upper Extremities Equipment Transfer Assistive Device Gait Belt,Front Wheeled Walker Orthotic/Prosthetic Devices or Brace: No Comments Mobility Comments pt supine in bed. initially not wanting to do PT. pt educated and encouraged to move and agreed. completed log roll bed mobility max A x 2 and max cues. max A for sitting on EOB. pt with increase posterior trunk leaning. completed sit to stand max A x 2 and max cues. pt sat back down. pt completed sit to stand again max A x 2 and able to take side stepping towards HOB max A x 2 and max cues but only able to take 1-2 steps and has to sit back down. continues to have R knee bucklingn needing max A to stabilize. educated pt on techniques to be able to lift LE for side stepping. attempted to stand again but pt unable despite 2 person max A. assisted pt to scoot towards HOB max A x 2 and max cues. completed sit to supine max A x 2 and max cues. positioned pt in bed. Left pt with nurse and NAC to assist. M5 PT-IP Objective Assessments Start: 04/14/23 15:29 Freq: NEEDED Status: Active Protocol: Document 04/15/23 10:50 AB (Rec: 04/15/23 13:39 AB [id number]) Orientation Orientation/Cognition Level of Alertness Confusional State Orientation Name,Age,Place,Situation Safety Awareness Decreased Safety Awareness Memory Description Short Term Impaired Gross Range of Motion Lower Extremity ROM Assessment Within Functional Limits Strength Lower Extremity Strength Assessment Bilaterally Impaired Comments Strength Comments RLE: 3-/5 LLE: 3+/5 Sensation Assessment Sensation Gross Sensation Right LE Impaired,Left LE Impaired Sensation Description Numbness Comments Sensation Comments B feet nueropathy per pt Muscle Tone Muscle Tone WNL Yes M6 PT-IP Treatment Start: 04/14/23 15:29 Freq: NEEDED Status: Active Protocol: Document 04/15/23 15:05 AB (Rec: 04/15/23 18:37 AB [id number]) Physical Therapy Treatment Education Education Provided Precautions,Safety M7 PT-IP Assessment and Plan Start: 04/14/23 15:29 Freq: NEEDED Status: Active Protocol: Document 04/15/23 15:05 AB (Rec: 04/15/23 18:37 AB [id number]) PT Summary Assessment and Plan Potential Rehabilitation Potential Fair Summary Impairments Pain,ROM,Strength,Balance, Coordination,Sensation,Tone, Cognition,Bed Mobility, Transfers,Gait,Activity Tolerance Progress Towards Goals Slow Progress due to Pain,Slow Progress due to Activity Tolerance,Slow Progress - Other Assessment Summary pt continues to c/o increase back pain and continues to require max Ax2 with mobility and unable to ambulate at this time but able to take 1-2 steps sideways to position towards HOB needing max A x 2 and max cues. pt continues to have R knee buckling needing max A to stabilize. pt will require SNF rehab to improve overall strength and mobility. Goals Bed Mobility Goal Minimal Assistance Transfer Goal Minimal Assistance,Front Wheeled Walker Gait Goal Minimal Assistance,Front Wheel Walker Gait Distance 50 Other Goals improve bed mobility, transfers and ambulation using fWW SBA ~ 150 ft up/down 2 steps using SPC/HISTOLOGY TECHNOLOGIST CGA Days to Meet Goals 10 Frequency of Treatment Frequency Of Treatment Twice a Day Treatment Plan Physical Therapy Treatment Plan Bed Mobility Training,Transfer Training,Gait Training, Therapeutic Exercise,Balance Retraining,Post Op Education, Discharge Planning,Hot or Cold Pack,Neuromuscular Re-ed, Coordination Retraining,Manual Therapy Precautions Lumbar Precautions Log Roll,No Twisting,Limit Bending,Lifting Restriction of 10 lbs,Gait Belt above Incisional Area Recommendations To Nursing Amount of Assist Needed Mechanical Lift Discharge Recommendations PT Discharge Recommendations SNF Rehab Transportation Needs at Discharge Wheelchair/Cabulance
--- NOTE | 2023-04-15 15:37 | OT.IP.TRT ---
Current Diagnoses Spondylolisthesis, lumbar region (04/13/23) Spinal stenosis, lumbar region with neurogenic claudication (04/13/23) Arthrodesis status (04/13/23) Surgery Performed Operation Date: 04/13/23 07:45 Actual Procedures p L3-4, L5-S1 TLIF with posterior instrumentation, L3-S1 PSF with instrumentation-Robot - Ale Mendoza MD s Spinal Cord Stimulator Removal - Ale Mendoza MD Occupational Therapy Treatment Note M2 OT-IP Current Condition Start: 04/14/23 13:12 Freq: Status: Active Protocol: Document 04/14/23 13:12 [facility] (Rec: 04/14/23 13:35 [facility] [id number]) Occupational Therapy Current Condition Current Condition Evaluation Date 04/14/23 Treatment Diagnosis S/P L3-4, L5-S1 TLIF with post inst L3-S1 Diagnosis Onset Date 04/13/23 Post Operative Precautions Lumbar Precautions Log Roll,No Twisting,Limit Bending,Lifting Restriction of 10 lbs,Gait Belt above Incisional Area M3 OT- IP Subjective and Pain Start: 04/14/23 13:12 Freq: Status: Active Protocol: Document 04/15/23 15:37 [facility] (Rec: 04/15/23 16:00 [facility] [id number]) OT- Subjective Occupational Therapy Visit Type Type Treatment Note Visit Start Time 15:05 Visit Stop Time 15:37 Occupational Therapy Visit Comments Patient Comments Pt needing lots of encouragement and then agreed to try to get up. Patient/Caregiver Goals TO go home. OT Pain Assessment Pain When Pain Assessed During Mobility Pain Present Pain Present Pain Reported Location back Pain Behaviors Crying,Facial Grimacing, Moaning M4 OT- IP ADL's Start: 04/14/23 13:12 Freq: Status: Active Protocol: Document 04/15/23 15:37 [facility] (Rec: 04/15/23 16:00 [facility] [id number]) OT ADL-Grooming General Evaluation Grooming Ability Standby Assistance Comments OT Grooming Comments Pt able to wash his face after set-up. OT ADL-Dressing General Eval Lower Body Dressing Ability Total Assistance Areas Needing Assistance Socks Comments OT Dressing Comments Pt not able to keep his balance while sitting and needing assist to geni/doff his gown. OT ADL-Toileting Comments OT Toileting Comments Pt needing his gown changed as wet. OT ADL-Bathing Comments OT Bathing Comments Sponge bath more appropriate at this time. M5 OT- IP IADL's Start: 04/14/23 13:12 Freq: Status: Active Protocol: Document 04/14/23 13:12 [facility] (Rec: 04/14/23 13:35 [facility] [id number]) OT-Instrumental Activities of Daily Living Deficits IADL Deficits Identified Deficits Home Safety Awareness Awareness of Need for Assistance at Home Decreased Awareness Home Safety Comments Pt very insistent on his care at this time. Pt insists his will be able to assist him for all his needs. Meal Preparation Meal Preparation Caregiver Provides Assist Litigation Secretary Litigation Secretary Caregiver Provides Assist M6 OT- IP Functional Cognition Start: 04/14/23 13:12 Freq: Status: Active Protocol: Document 04/15/23 15:37 [facility] (Rec: 04/15/23 16:00 [facility] [id number]) Cognitive Factors Limiting Selfcare Function Cognitive Ability Level of Alertness Alert,Drowsy Patient Orientation Name,Place,Situation Attention Span Ability Capable of Focused Attention, Capable of Sustained Attention Ability to Follow Commands Able to Follow One Step Commands with Increased Time, Able to Follow One Step Commands with Repetition Cognitive Comments Cognitive Assessment Comments Pt needing step by step instructions for all needs. VC for hand placement and FWW safety. M7 OT- IP Mobility and Balance Start: 04/14/23 13:12 Freq: Status: Active Protocol: Document 04/15/23 15:37 [facility] (Rec: 04/15/23 16:00 [facility] [id number]) OT- Bed Mobility Assessment Supine to Sit Supine to Sit Assist Maximum Assistance,Total Assistance,2 Person Assistance ,Head of Bed Elevated Sit to Supine Sit to Supine Assist Total Assistance,2 Person Assistance Scooting Scooting to Edge of Bed Maximum Assistance,1 Person Assistance,2 Person Assistance OT-Transfer Assessment Sit to and From Stand Sit to and from Stand Maximum Assistance,2 Person Assistance Comments Mobility Comments MAX/Total assist for all mobility needs and 2-3 person assist. Pt unable to assist to get his trunk upright after in sidelying. MAXAx2 to stand to the FWW and buckling at his knees. Unable to stand all the way up. Pt able to take small step to the head of the bed and then able to scoot with MAX AX 1-2 . At this time , best to use the frank lift for pt. OT- Balance Assessment Sitting Balance and Reactions Static Sitting Balance Ability Poor Dynamic Sitting Balance Ability Poor Standing Balance and Reactions Static Standing Balance Ability Poor Dynamic Standing Balance Ability Poor Comments Other Balance Tests/Deviations/Treatment Pt today poor sitting balance : and falling back into posterior tilt and needing MOD to MAXA for assistance. M8 OT- IP Objective Assessments Start: 04/14/23 13:12 Freq: Status: Active Protocol: Document 04/14/23 13:12 [facility] (Rec: 04/14/23 13:35 [facility] [id number]) OT Gross Range of Motion Upper Extremity Range of Motion Assessment Left Impaired OT Strength Upper Extremity Strength Assessment Left Impaired M9 OT- IP Assessment and Plan Start: 04/14/23 13:12 Freq: Status: Active Protocol: Document 04/15/23 15:37 [facility] (Rec: 04/15/23 16:00 [facility] [id number]) OT Summary Assessment and Plan Potential Rehabilitation Potential Good Analytic Complexity at Evaluation Moderate Summary OT Impairments Pain,Balance,Functional Cognition,Functional Mobility, Self-Feeding,Grooming,Dressing ,Toileting,Bathing,Toilet Transfers,Shower Transfers, Activity Tolerance Progress Towards Goals Slow Progress due to Pain,Slow Progress due to Medical Issues,Slow Progress due to Activity Tolerance,Slow Progress due to Cognition Assessment Summary Pt still having lots of pain and noted more buckling today with his legs and needing extensive 2-3 person assist for all mobility needs. At this time pt will need skilled rehab as current level too great for his to assist. Goals Self-Feeding Goal Independent Grooming Goal Independent Dressing Goal Minimal Assistance Toileting Goal Standby Assistance Bathing Goal Minimal Assistance Toilet Transfer Goal Standby Assistance Shower Transfer Goal Standby Assistance Days to Meet Goals 25 Frequency of Treatment Frequency Of Treatment Once a Day Treatment Plan OT Treatment Plan ADL Training,Functional Mobility,Patient/Family Education,Discharge Planning Discharge Recommendations OT Discharge Recommendations SNF Rehab Home Equipment Needs FWW, sock aid, BSC Transportation Needs at Discharge Wheelchair/Cabulance
[2023-04-15] MEDS: SENNOSIDES 8.6 MG TABLET 17.2 MG PO (21:02)
[2023-04-16] VITALS (22 sets, daily range): BP systolic 141–156; BP diastolic 63–78; PULSE 78–100; RESP 16–18; TEMP 36.6–36.9; O2SAT 89–98
[2023-04-16] MEDS: OXYCODONE IR 10 MG TABLET PO (03:21)
[2023-04-16] MEDS: ACETAMINOPHEN 325 MG TABLET 650 MG PO ×2 (07:25→17:08)
[2023-04-16] MEDS: OXYCODONE IR 5 MG TABLET PO (07:25)
[2023-04-16] MEDS: PRAVASTATIN 20 MG TABLET 40 MG PO (08:15)
[2023-04-16] MEDS: TAMSULOSIN 0.4 MG CAPSULE PO (08:15)
[2023-04-16] MEDS: hydroCHLOROthiazide 25 MG TABLET PO (08:15)
[2023-04-16] MEDS: GABAPENTIN 300 MG CAPSULE 600 MG PO ×2 (08:16→20:42)
[2023-04-16] MEDS: allopurinoL 100 MG TABLET PO (08:16)
[2023-04-16] MEDS: lisinopriL 10 MG TABLET 30 MG PO (08:16)
[2023-04-16] MEDS: DOCUSATE 100 MG CAPSULE PO ×2 (08:16→20:42)
[2023-04-16] MEDS: cloNIDine 0.1 MG TABLET PO (08:17)
--- NOTE | 2023-04-16 10:21 | PM.PNPO.1 ---
Subjective Subjective Date Patient Seen: 04/16/23 Time Patient Seen: 09:20 Interval history: Sanjay is sitting up in bed today and tells me he's been having an awful time during this admission but is unable to really give me any definite examples. He has definitely had issues with pain control, and I've had reports from nursing and colleagues that he's had some issues with ill-temper. He tells me today that he is feeling better, but likely wasn't prepared for how much pain he would be in after surgery. He c/o back pain, denies leg pain. He has been evaluated by PT throughout his stay and they are currently recommending SNF placement d/t need for 2 person assist w/ transfers and walking. Exam Vital Signs (past 8 hours): - 04/16/23 07:00 04/16/23 07:00 04/16/23 08:00 Temperature 98 F Pulse Rate 87 Respiratory Rate 16 Blood Pressure 141/63 H Pulse Oximetry 98 90 L Oxygen Delivery Method Room Air Room Air Oxygen Flow Rate 0 Fraction of Inspired Oxygen 24 SaO2/FiO2 Ratio 387 Oxygen Delivery Method Room Air Oxygen Flow Rate 0 Narrative Exam Narrative: 5/5 strength in quadriceps, hamstrings, DF, PF, EHL bilaterally. Sensation to light touch intact in BLE, calves soft and compressible. Dressings CDI. Condom cath in place, draining clear, yellow urine. Objective Labs 04/14/23 04:45 PFSH Medical History (Updated 03/26/19 @ 11:51 by Sandor Rivera MD) Diverticulosis HTN (hypertension) Surgical History (Updated 04/16/23 @ 10:28 by Lucrecia Donaldson PA-C) H/O colectomy Social History household members: spouse Smoking Status: Former smoker alcohol intake: current Assessment & Plan Post-op Assessment and plan (1) S/P lumbar fusion: Assessment and Plan narrative: Pt had an extensive procedure that required removal of not only his existing fusion hardware but his spinal cord stimulator as well. It is not surprising that he is having significant post-op pain. Prior to surgery, he was taking gabapentin only for pain control. At this point, I will keep him on oxycodone and add cyclobenzaprine 10mg TID to help with pain control. I have encouraged him to continue work w/ PT in the hopes that he can go home in next 1-2 days rather than SNF. I also discussed this plan w/ CM. Postoperative Procedures: Procedures Operation Date: 04/13/23 07:45 Actual Procedure Side Surgeon p L3-4, L5-S1 TLIF with posterior instrumentation, L3-S1 PSF with instrumentation-Robot Ale Mendoza MD s Spinal Cord Stimulator Removal Ale Mendoza MD Postoperative day: 3 Quality VTE Deep Vein Thrombosis/Pulmonary Embolism Present on Admission: No
--- NOTE | 2023-04-16 11:03 | PT.IPTN ---
Current Diagnoses Spondylolisthesis, lumbar region (04/13/23) Spinal stenosis, lumbar region with neurogenic claudication (04/13/23) Arthrodesis status (04/13/23) Surgery Performed Operation Date: 04/13/23 07:45 Actual Procedures p L3-4, L5-S1 TLIF with posterior instrumentation, L3-S1 PSF with instrumentation-Robot - Ale Mendoza MD s Spinal Cord Stimulator Removal - Ale Mendoza MD Physical Therapy Treatment Note M2 PT-IP Current Condition Start: 04/14/23 15:29 Freq: NEEDED Status: Active Protocol: Document 04/15/23 10:50 AB (Rec: 04/15/23 13:39 AB [id number]) Physical Therapy Current Condition Current Condition Evaluation Date 04/15/23 Treatment Diagnosis L3-4,L5S1 TLIF; L4-5 instrumentation; difficulty in walking Onset Date 04/13/23 M3 PT-IP Subjective Start: 04/14/23 15:29 Freq: NEEDED Status: Active Protocol: Document 04/16/23 12:09 TS (Rec: 04/16/23 12:19 TS [id number]) Subjective Physical Therapy Visit Type Type Treatment Note Visit Start Time 11:03 Visit Stop Time 11:28 Notes Spouse in room Number of COPIER REPAIR TECHNICIAN Visits 1 Physical Therapy Visit Comments Patient Comments pt found in chair, reports feeling better this morning, is agreeable to PT. Therapy Pain Assessment Pain When Pain Assessed During Mobility Pain Present Pain Present Pain Reported M4 PT-IP Mobility and Gait Start: 04/14/23 15:29 Freq: NEEDED Status: Active Protocol: Document 04/16/23 12:09 TS (Rec: 04/16/23 12:19 TS [id number]) PT-Transfer Assessment Sit to and From Stand Sit to and from Stand Contact Guard Assistance, Maximum Assistance,1 Person Assistance,Use of Upper Extremities Equipment Transfer Assistive Device Gait Belt,Front Wheeled Walker Orthotic/Prosthetic Devices or Brace: No Transfers Transfer Destination Bed,Chair Transfer Technique Stand Step Pivot Transfer Ability Level of Assist Minimal Assistance,1 Person Assistance,Use of Upper Extremities Comments Mobility Comments Pt recalled 0/3 spinal precautions. STS from chair MaxA x1 with use of FWW, pt required max cues for sequencing. Pt stand step pivot to chair Javan for FWW management. STS from elevated bed CGA with use of FWW. He ambualted in room ~40'Javan for FWW management, pt requires cues for staying close to FWW. pt sat back on bed, stand step pivot back to chair Javan again for FWW management. Pt was left in chair, all needs met. Gait Assessment Gait Gait Assistance Required: Minimum Assistance,1 Person Assist Distance (Feet) 40 Assistive Devices Assistive Device Gait Belt,Front Wheeled Walker Orthotic/Prosthetic Devices or Brace: No Gait Deviations General Gait Pattern Antalgic,Decreased Stride Length,Decreased Feet Clearance,Flexed Trunk,Step-to Gait,Wide Based Gait Factors Limiting Gait Function Factors Limiting Gait Function Decreased Activity Tolerance, Decreased Strength,Difficulty Following Directions,Pain,Poor Balance,Poor Safety Awareness Comments Gait Comments See mobility comments PT-Balance Assessment Sitting Balance and Reactions Static Sitting Balance Ability Good Dynamic Sitting Balance Ability Fair Standing Balance and Reactions Static Standing Balance Ability Fair Dynamic Standing Balance Ability Fair Device Used FWW M5 PT-IP Objective Assessments Start: 04/14/23 15:29 Freq: NEEDED Status: Active Protocol: Document 04/15/23 10:50 AB (Rec: 04/15/23 13:39 AB [id number]) Orientation Orientation/Cognition Level of Alertness Confusional State Orientation Name,Age,Place,Situation Safety Awareness Decreased Safety Awareness Memory Description Short Term Impaired Gross Range of Motion Lower Extremity ROM Assessment Within Functional Limits Strength Lower Extremity Strength Assessment Bilaterally Impaired Comments Strength Comments RLE: 3-/5 LLE: 3+/5 Sensation Assessment Sensation Gross Sensation Right LE Impaired,Left LE Impaired Sensation Description Numbness Comments Sensation Comments B feet nueropathy per pt Muscle Tone Muscle Tone WNL Yes M6 PT-IP Treatment Start: 04/14/23 15:29 Freq: NEEDED Status: Active Protocol: Document 04/16/23 12:09 TS (Rec: 04/16/23 12:19 [id number]) Physical Therapy Treatment Education Education Provided Precautions,Safety M7 PT-IP Assessment and Plan Start: 04/14/23 15:29 Freq: NEEDED Status: Active Protocol: Document 04/16/23 12:09 TS (Rec: 04/16/23 12:19 TS [id number]) PT Summary Assessment and Plan Potential Rehabilitation Potential Fair Summary Impairments Pain,ROM,Strength,Balance, Coordination,Sensation,Tone, Cognition,Bed Mobility, Transfers,Gait,Activity Tolerance Progress Towards Goals Progressing Toward Goals Assessment Summary Sanjay is making some progress with his mobility this session. He performed STS from low surface of chair MaxA with FWW and CGA x2 from elevated bed. He progressed his gait to ~40'Javan, does require cues for safety and FWW management. Pt tends to keep FWW far out in front and is unsafe. His activity tolerance has made some improvements, does lack good safety awareness of mobility. Pt at this time will continue to recommend SNF rehab at this time. Goals Bed Mobility Goal Minimal Assistance Transfer Goal Minimal Assistance,Front Wheeled Walker Gait Goal Minimal Assistance,Front Wheel Walker Gait Distance 50 Other Goals improve bed mobility, transfers and ambulation using fWW SBA ~ 150 ft up/down 2 steps using SPC/MULTINEEDLE SHIRRER CGA Days to Meet Goals 10 Frequency of Treatment Frequency Of Treatment Twice a Day Treatment Plan Physical Therapy Treatment Plan Bed Mobility Training,Transfer Training,Gait Training, Therapeutic Exercise,Balance Retraining,Post Op Education, Discharge Planning,Hot or Cold Pack,Neuromuscular Re-ed, Coordination Retraining,Manual Therapy Precautions Lumbar Precautions Log Roll,No Twisting,Limit Bending,Lifting Restriction of 10 lbs,Gait Belt above Incisional Area Recommendations To Nursing Amount of Assist Needed 2 Person Assist Discharge Recommendations PT Discharge Recommendations SNF Rehab Transportation Needs at Discharge Wheelchair/Cabulance
--- NOTE | 2023-04-16 12:54 | CM.DPNOTE ---
Addendum entered by TOMI Avalos 04/16/23 13:34: Keely at [facility] can accept and will need to attempt [facility] auth, will try to start it this weekend. PASRR completed in anticipation of SNF. Chk in with Keely Tuesday Original Note: DCP Cont Therapies continue to recommend SNF. Met w/patient to discuss. He was hopeful to return home although now recognizes he needs too much assist at this point for spouse to accommodate. Patient agreeable to SNF referrals; discussed the process with his [facility] M[facility]. In addition, explained that SNF availability is limited. - [facility] -[facility] has a COVID outbreak -[facility] does not have an field operations coordinator until Tuesday -[facility] will not have someone to review referrals until Tuesday. Faxed anyway today That leaves [facility] (emailed referral) and [facility] (faxed referral) Updated Elisa Villalba PA CM team will need to follow closely, patient may inevitably return home as he initially planned, needs to progress with therapies. Need Level 1 PASRR if SNF. MONIK
--- NOTE | 2023-04-16 13:15 | PT.IPTN ---
Current Diagnoses Spondylolisthesis, lumbar region (04/13/23) Spinal stenosis, lumbar region with neurogenic claudication (04/13/23) Arthrodesis status (04/13/23) Surgery Performed Operation Date: 04/13/23 07:45 Actual Procedures p L3-4, L5-S1 TLIF with posterior instrumentation, L3-S1 PSF with instrumentation-Robot - Ale Mendoza MD s Spinal Cord Stimulator Removal - Ale Mendoza MD Physical Therapy Treatment Note M2 PT-IP Current Condition Start: 04/14/23 15:29 Freq: NEEDED Status: Active Protocol: Document 04/15/23 10:50 AB (Rec: 04/15/23 13:39 AB [id number]) Physical Therapy Current Condition Current Condition Evaluation Date 04/15/23 Treatment Diagnosis L3-4,L5S1 TLIF; L4-5 instrumentation; difficulty in walking Onset Date 04/13/23 M3 PT-IP Subjective Start: 04/14/23 15:29 Freq: NEEDED Status: Active Protocol: Document 04/16/23 13:44 TS (Rec: 04/16/23 13:57 TS [id number]) Subjective Physical Therapy Visit Type Type Treatment Note Visit Start Time 13:15 Visit Stop Time 13:43 Number of FINISH MIXER Visits 2 Physical Therapy Visit Comments Patient Comments Pt found resting in chair, would like to try and use commode, pt agreeable to PT. Therapy Pain Assessment Pain When Pain Assessed During Mobility Pain Present Pain Present Pain Reported M4 PT-IP Mobility and Gait Start: 04/14/23 15:29 Freq: NEEDED Status: Active Protocol: Document 04/16/23 13:44 TS (Rec: 04/16/23 13:57 TS [id number]) PT-Bed Mobility Assessment Rolling Type of Rolling Log Rolling Level of Assist Moderate Assistance,1 Person Assistance Sit to Supine Sit to Supine Moderate Assistance,1 Person Assistance PT-Transfer Assessment Sit to and From Stand Sit to and from Stand Minimal Assistance,Maximum Assistance,1 Person Assistance ,Use of Upper Extremities Equipment Transfer Assistive Device Gait Belt,Front Wheeled Walker Orthotic/Prosthetic Devices or Brace: No Comments Mobility Comments Pt recalled 0/3 spinal precautions prior to mobility. STS from chair MaxA x1 with use of FWW, pt required cues for sequencing, does not demonstrate carryover. Pt ambulated ~5' to commode with FWW Javan with cues for FWW management, pt tends to keep FWW out in front of him. Pt sat commode, did not void or have a BM. STS from commode MaxA x1 with max cues. Pt ambulated back to bed, sit to supine ModA for LEs and cues for sequencing. Logroll to L side ModA with cues for spinal precautions. Pt was left in bed, all needs met. Gait Assessment Gait Gait Assistance Required: Minimum Assistance,1 Person Assist Distance (Feet) 10 Assistive Devices Assistive Device Gait Belt,Front Wheeled Walker Orthotic/Prosthetic Devices or Brace: No Gait Deviations General Gait Pattern Antalgic,Decreased Stride Length,Decreased Feet Clearance,Flexed Trunk,Step-to Gait,Wide Based Gait Factors Limiting Gait Function Factors Limiting Gait Function Decreased Activity Tolerance, Decreased Strength,Difficulty Following Directions,Pain,Poor Balance,Poor Safety Awareness Comments Gait Comments See mobility comments PT-Balance Assessment Sitting Balance and Reactions Static Sitting Balance Ability Good Dynamic Sitting Balance Ability Fair Standing Balance and Reactions Static Standing Balance Ability Fair Dynamic Standing Balance Ability Fair Device Used FWW M5 PT-IP Objective Assessments Start: 04/14/23 15:29 Freq: NEEDED Status: Active Protocol: Document 04/15/23 10:50 AB (Rec: 04/15/23 13:39 AB [id number]) Orientation Orientation/Cognition Level of Alertness Confusional State Orientation Name,Age,Place,Situation Safety Awareness Decreased Safety Awareness Memory Description Short Term Impaired Gross Range of Motion Lower Extremity ROM Assessment Within Functional Limits Strength Lower Extremity Strength Assessment Bilaterally Impaired Comments Strength Comments RLE: 3-/5 LLE: 3+/5 Sensation Assessment Sensation Gross Sensation Right LE Impaired,Left LE Impaired Sensation Description Numbness Comments Sensation Comments B feet nueropathy per pt Muscle Tone Muscle Tone WNL Yes M6 PT-IP Treatment Start: 04/14/23 15:29 Freq: NEEDED Status: Active Protocol: Document 04/16/23 13:44 TS (Rec: 04/16/23 13:57 TS [id number]) Physical Therapy Treatment Education Education Provided Precautions,Safety M7 PT-IP Assessment and Plan Start: 04/14/23 15:29 Freq: NEEDED Status: Active Protocol: Document 04/16/23 13:44 TS (Rec: 04/16/23 13:57 TS [id number]) PT Summary Assessment and Plan Potential Rehabilitation Potential Fair Summary Impairments Pain,ROM,Strength,Balance, Coordination,Sensation,Tone, Cognition,Bed Mobility, Transfers,Gait,Activity Tolerance Progress Towards Goals Slow Progress due to Pain,Slow Progress due to Activity Tolerance Assessment Summary Sanjay is making slow progress with his mobility. He requires MaxA for STS from chair and commode, requires CGA from elevated bed. He ambulated ~10' in room Javan with FWW, requires cues for FWW manaagement and safety. He is more unsteady this session with gait and fatigues quickly. He is not safe for stair training at this time. PT continues to recommend SNF before safe d/c home. Goals Bed Mobility Goal Minimal Assistance Transfer Goal Minimal Assistance,Front Wheeled Walker Gait Goal Minimal Assistance,Front Wheel Walker Gait Distance 50 Other Goals improve bed mobility, transfers and ambulation using fWW SBA ~ 150 ft up/down 2 steps using SPC/FAMILY LIFE EDUCATOR CGA Days to Meet Goals 10 Frequency of Treatment Frequency Of Treatment Twice a Day Treatment Plan Physical Therapy Treatment Plan Bed Mobility Training,Transfer Training,Gait Training, Therapeutic Exercise,Balance Retraining,Post Op Education, Discharge Planning,Hot or Cold Pack,Neuromuscular Re-ed, Coordination Retraining,Manual Therapy Precautions Lumbar Precautions Log Roll,No Twisting,Limit Bending,Lifting Restriction of 10 lbs,Gait Belt above Incisional Area Recommendations To Nursing Amount of Assist Needed 2 Person Assist Discharge Recommendations PT Discharge Recommendations SNF Rehab Transportation Needs at Discharge Wheelchair/Cabulance
[2023-04-16] MEDS: CYCLOBENZAPRINE 10 MG TABLET PO (17:09)
[2023-04-16] MEDS: SENNOSIDES 8.6 MG TABLET 17.2 MG PO (20:42)
[2023-04-17] VITALS (12 sets, daily range): BP systolic 95–167; BP diastolic 45–76; PULSE 28–110; RESP 18–19; TEMP 36.3–36.9; O2SAT 82–97
[2023-04-17] MEDS: CYCLOBENZAPRINE 10 MG TABLET PO ×3 (02:13→18:29)
[2023-04-17] MEDS: ACETAMINOPHEN 325 MG TABLET 650 MG PO ×4 (02:13→22:14)
--- NOTE | 2023-04-17 02:59 | PC.NURSE ---
Patient out of bed with 1 person assist and front wheel walker to bedside commode, from bedside commode to recliner, able to tolerate ambulation with no complaint of increased in pain, decline pain medication when offered.
[2023-04-17] MEDS: allopurinoL 100 MG TABLET PO (09:20)
[2023-04-17] MEDS: cloNIDine 0.1 MG TABLET PO (09:20)
[2023-04-17] MEDS: PRAVASTATIN 20 MG TABLET 40 MG PO (09:20)
[2023-04-17] MEDS: lisinopriL 10 MG TABLET 30 MG PO (09:20)
[2023-04-17] MEDS: GABAPENTIN 300 MG CAPSULE 600 MG PO ×3 (09:21→21:20)
[2023-04-17] MEDS: TAMSULOSIN 0.4 MG CAPSULE PO (09:21)
[2023-04-17] MEDS: hydroCHLOROthiazide 25 MG TABLET PO (09:21)
[2023-04-17] MEDS: DOCUSATE 100 MG CAPSULE PO (09:22)
--- NOTE | 2023-04-17 10:03 | PM.PN.1 ---
Exam Vital Signs (past 8 hours): - 04/17/23 08:43 04/17/23 09:20 04/17/23 09:20 Temperature 98.5 F Pulse Rate 110 H 110 H 110 H Respiratory Rate 18 Blood Pressure 167/76 H 167/76 H 167/76 H Pulse Oximetry 96 Oxygen Flow Rate 0 Fraction of Inspired Oxygen 24 SaO2/FiO2 Ratio 387 Oxygen Delivery Method Room Air Oxygen Flow Rate 0 Objective Labs 04/14/23 04:45 PFSH Medical History (Updated 03/26/19 @ 11:51 by Sandor Rivera MD) Diverticulosis HTN (hypertension) Surgical History (Updated 04/16/23 @ 10:28 by Lucrecia Donaldson PA-C) H/O colectomy Social History household members: spouse Smoking Status: Former smoker alcohol intake: current Assessment & Plan Assessment & Plan narrative: Patient is POD#3 s/p L3-S1 PSF with revision hardware L4-5. He is slow to progress with PT. On exam, his dressing is clean dry intact and he is neuro intact w/o deficit. Will continue mobility/stability training for ambulation. Will plan for discharge once cleared by PT/OT. Care plan was discussed with patient and his . They understand and agree with the current plan. I will f/u and confirm plan for discharge once we have more definitive recommendation from PT/OT. Quality VTE Deep Vein Thrombosis/Pulmonary Embolism Present on Admission: No
--- NOTE | 2023-04-17 10:14 | PT.IPTN ---
Current Diagnoses Spondylolisthesis, lumbar region (04/13/23) Spinal stenosis, lumbar region with neurogenic claudication (04/13/23) Arthrodesis status (04/13/23) Surgery Performed Operation Date: 04/13/23 07:45 Actual Procedures p L3-4, L5-S1 TLIF with posterior instrumentation, L3-S1 PSF with instrumentation-Robot - Ale Mendoza MD s Spinal Cord Stimulator Removal - Ale Mendoza MD Physical Therapy Treatment Note M2 PT-IP Current Condition Start: 04/14/23 15:29 Freq: NEEDED Status: Active Protocol: Document 04/15/23 10:50 AB (Rec: 04/15/23 13:39 AB [id number]) Physical Therapy Current Condition Current Condition Evaluation Date 04/15/23 Treatment Diagnosis L3-4,L5S1 TLIF; L4-5 instrumentation; difficulty in walking Onset Date 04/13/23 M3 PT-IP Subjective Start: 04/14/23 15:29 Freq: NEEDED Status: Active Protocol: Document 04/17/23 09:11 MB (Rec: 04/17/23 10:14 MB [id number]) Subjective Physical Therapy Visit Type Type Treatment Note Visit Start Time 09:11 Visit Stop Time 09:35 Number of DRYING ROOM SUPERVISOR Visits 0 Physical Therapy Visit Comments Patient Comments Pt states that he is doing badly and con't with high pain . Therapy Pain Assessment Pain When Pain Assessed During Mobility Pain Present Pain Present Pain Reported Location back Pain Behaviors Facial Grimacing,Guarding Pain Management Techniques Distraction,Re-positioning M4 PT-IP Mobility and Gait Start: 04/14/23 15:29 Freq: NEEDED Status: Active Protocol: Document 04/17/23 09:11 MB (Rec: 04/17/23 10:14 MB [id number]) PT-Transfer Assessment Sit to and From Stand Sit to and from Stand Contact Guard Assistance,1 Person Assistance,Use of Upper Extremities Equipment Transfer Assistive Device Gait Belt,Front Wheeled Walker Orthotic/Prosthetic Devices or Brace: No Transfers Transfer Destination Chair Transfer Technique Stepping Transfer Ability Level of Assist Contact Guard Assistance,1 Person Assistance,Use of Upper Extremities Comments Mobility Comments Pt reports 8/10 pain at rest and 100 pain with mobility. Pt requires extensive VCs and encouragement to move himself in the bed and PT talks him through log rolling. He states , y'all are trying to kill me when attempted getting to EOB to the left with increased time and effort, HOB increased and use of rail with both hands, cues to bend legs and to try to roll. Pt cannot tolerate bed flat position to start mobility. Pt reaches for walker to pull up to sitting with right hand and PT holds it down. He is unwilling to try PT's other suggestions for better body mechanics and use of hand placement. He also expresses that he cannot stand up with one hand on the bed and one on the walker and so extensive education about hand placement and compromise of right hand on the bed and left hand on the walker. Gait Assessment Gait Gait Assistance Required: Minimum Assistance,1 Person Assist Distance (Feet) 2 Assistive Devices Assistive Device Gait Belt,Front Wheeled Walker Orthotic/Prosthetic Devices or Brace: No Gait Deviations General Gait Pattern Antalgic,Decreased Stride Length,Decreased Feet Clearance,Flexed Trunk,Step-to Gait,Wide Based Gait Factors Limiting Gait Function Factors Limiting Gait Function Decreased Activity Tolerance, Decreased Strength,Difficulty Following Directions,Pain,Poor Balance,Poor Safety Awareness Comments Gait Comments Pt refuses to gait train further and tends to keep walker far out in front of him PT-Balance Assessment Sitting Balance and Reactions Static Sitting Balance Ability Good Dynamic Sitting Balance Ability Fair Standing Balance and Reactions Static Standing Balance Ability Fair Dynamic Standing Balance Ability Fair Device Used FWW M5 PT-IP Objective Assessments Start: 04/14/23 15:29 Freq: NEEDED Status: Active Protocol: Document 04/15/23 10:50 AB (Rec: 04/15/23 13:39 AB [id number]) Orientation Orientation/Cognition Level of Alertness Confusional State Orientation Name,Age,Place,Situation Safety Awareness Decreased Safety Awareness Memory Description Short Term Impaired Gross Range of Motion Lower Extremity ROM Assessment Within Functional Limits Strength Lower Extremity Strength Assessment Bilaterally Impaired Comments Strength Comments RLE: 3-/5 LLE: 3+/5 Sensation Assessment Sensation Gross Sensation Right LE Impaired,Left LE Impaired Sensation Description Numbness Comments Sensation Comments B feet nueropathy per pt Muscle Tone Muscle Tone WNL Yes M6 PT-IP Treatment Start: 04/14/23 15:29 Freq: NEEDED Status: Active Protocol: Document 04/17/23 09:11 MB (Rec: 04/17/23 10:14 MB [id number]) Physical Therapy Treatment Education Education Provided Precautions,Safety M7 PT-IP Assessment and Plan Start: 04/14/23 15:29 Freq: NEEDED Status: Active Protocol: Document 04/17/23 09:11 MB (Rec: 04/17/23 10:14 MB [id number]) PT Summary Assessment and Plan Potential Rehabilitation Potential Fair Summary Impairments Pain,ROM,Strength,Balance, Sensation,Bed Mobility, Transfers,Gait,Activity Tolerance Progress Towards Goals Slow Progress due to Pain,Slow Progress due to Activity Tolerance Assessment Summary Chip with decreased tolerance with PT and requiring encouragement to participate minimally with mobility. He reports 8-100/10 pain with activity and is resistant to education today. Con't PT efforts. is nearby for treatment and she does not feel that she can care for him at home at this time. Pt adamantly refuses longer gait distance with PT this a.m. and is agreeable to sit up in the chair. Goals Bed Mobility Goal Independent Transfer Goal Independent,Front Wheeled Walker Gait Goal Independent,Front Wheel Walker Gait Distance 50 Other Goals improve bed mobility, transfers and ambulation using fWW SBA ~ 150 ft up/down 2 steps using SPC/SCHEDULING SPECIALIST CGA Days to Meet Goals 5 Frequency of Treatment Frequency Of Treatment Twice a Day Treatment Plan Physical Therapy Treatment Plan Bed Mobility Training,Transfer Training,Gait Training, Therapeutic Exercise,Balance Retraining,Post Op Education, Discharge Planning,Hot or Cold Pack,Neuromuscular Re-ed, Coordination Retraining,Manual Therapy Precautions Lumbar Precautions Log Roll,No Twisting,Limit Bending,Lifting Restriction of 10 lbs,Gait Belt above Incisional Area Recommendations To Nursing Amount of Assist Needed 1 Person Assist Discharge Recommendations PT Discharge Recommendations SNF Rehab Transportation Needs at Discharge Wheelchair/Cabulance
--- NOTE | 2023-04-17 11:38 | CM.DPNOTE ---
DCP Note AML ANALYST reviewed EMR. Per PT, continue ot rec SNF placement based on ambulation today. AML ANALYST coordinated with surgeon, in agreement with SNF placement, anticipate tomorrow pending [facility] auth. AML ANALYST met with pt and spouse in room. Confirm plan for [facility] when auth is in. Pt and spouse in agreement. AML ANALYST answered questions. AML ANALYST emailed Keely at updated PN/PT note/signed med list and PASRR. AML ANALYST placed PASRR and signed med list back in chart. No level 2 need for PASRR identified. AML ANALYST updated RN. Plan: anticipate dc to [facility] tomorrow via facility transport, auth pending/transport pending. CM team will continue to follow closely. TOMI Leon
--- NOTE | 2023-04-17 13:20 | PT.IPTN ---
Current Diagnoses Spondylolisthesis, lumbar region (04/13/23) Spinal stenosis, lumbar region with neurogenic claudication (04/13/23) Arthrodesis status (04/13/23) Surgery Performed Operation Date: 04/13/23 07:45 Actual Procedures p L3-4, L5-S1 TLIF with posterior instrumentation, L3-S1 PSF with instrumentation-Robot - Ale Mendoza MD s Spinal Cord Stimulator Removal - Ale Mendoza MD Physical Therapy Treatment Note M2 PT-IP Current Condition Start: 04/14/23 15:29 Freq: NEEDED Status: Active Protocol: Document 04/15/23 10:50 AB (Rec: 04/15/23 13:39 AB [id number]) Physical Therapy Current Condition Current Condition Evaluation Date 04/15/23 Treatment Diagnosis L3-4,L5S1 TLIF; L4-5 instrumentation; difficulty in walking Onset Date 04/13/23 M3 PT-IP Subjective Start: 04/14/23 15:29 Freq: NEEDED Status: Active Protocol: Document 04/17/23 13:00 MB (Rec: 04/17/23 13:20 MB [id number]) Subjective Physical Therapy Visit Type Type Treatment Note Visit Start Time 13:00 Visit Stop Time 13:12 Number of RHINESTONE SETTER Visits 0 Physical Therapy Visit Comments Patient Comments Pt is agreeable to PT. He is sitting on EOB with partially eaten lunch nearby upon arrival. Therapy Pain Assessment Pain When Pain Assessed During Mobility Pain Present Pain Present Pain Reported Location back Pain Behaviors Facial Grimacing,Guarding Pain Management Techniques Distraction,Re-positioning M4 PT-IP Mobility and Gait Start: 04/14/23 15:29 Freq: NEEDED Status: Active Protocol: Document 04/17/23 13:00 MB (Rec: 04/17/23 13:20 MB [id number]) PT-Transfer Assessment Sit to and From Stand Sit to and from Stand Contact Guard Assistance,1 Person Assistance,Use of Upper Extremities Equipment Transfer Assistive Device Gait Belt,Front Wheeled Walker Orthotic/Prosthetic Devices or Brace: No Transfers Transfer Destination Chair Transfer Technique Ambulation Transfer Ability Level of Assist Contact Guard Assistance,1 Person Assistance,Use of Upper Extremities Comments Mobility Comments Pt does not give a pain number this afternoon and he appears to have some confusion. Gait Assessment Gait Gait Assistance Required: Minimum Assistance,1 Person Assist Distance (Feet) 100 Assistive Devices Assistive Device Gait Belt,4 Wheeled Walker Orthotic/Prosthetic Devices or Brace: No Gait Deviations General Gait Pattern Antalgic,Decreased Stride Length,Decreased Feet Clearance,Flexed Trunk,Step-to Gait,Wide Based Gait Factors Limiting Gait Function Factors Limiting Gait Function Decreased Activity Tolerance, Decreased Strength,Difficulty Following Directions,Pain,Poor Balance,Poor Safety Awareness Comments Gait Comments Pt wishes to try his rollator and so PT is willing to assist him with this this p.m. His gait is very quick and he has poor control and he runs into doorway on the left on the way out of the room. He requires cues for where to go with gait and PT gives cues to slow down and to stay closer to the rollator. Left up in chair with call begum after gait. PT-Balance Assessment Sitting Balance and Reactions Static Sitting Balance Ability Good Dynamic Sitting Balance Ability Fair Standing Balance and Reactions Static Standing Balance Ability Fair Dynamic Standing Balance Ability Fair Device Used Rollator M5 PT-IP Objective Assessments Start: 04/14/23 15:29 Freq: NEEDED Status: Active Protocol: Document 04/15/23 10:50 AB (Rec: 04/15/23 13:39 AB [id number]) Orientation Orientation/Cognition Level of Alertness Confusional State Orientation Name,Age,Place,Situation Safety Awareness Decreased Safety Awareness Memory Description Short Term Impaired Gross Range of Motion Lower Extremity ROM Assessment Within Functional Limits Strength Lower Extremity Strength Assessment Bilaterally Impaired Comments Strength Comments RLE: 3-/5 LLE: 3+/5 Sensation Assessment Sensation Gross Sensation Right LE Impaired,Left LE Impaired Sensation Description Numbness Comments Sensation Comments B feet nueropathy per pt Muscle Tone Muscle Tone WNL Yes M6 PT-IP Treatment Start: 04/14/23 15:29 Freq: NEEDED Status: Active Protocol: Document 04/17/23 13:00 MB (Rec: 04/17/23 13:20 MB [id number]) Physical Therapy Treatment Education Education Provided Precautions,Safety M7 PT-IP Assessment and Plan Start: 04/14/23 15:29 Freq: NEEDED Status: Active Protocol: Document 04/17/23 13:00 MB (Rec: 04/17/23 13:20 MB [id number]) PT Summary Assessment and Plan Potential Rehabilitation Potential Fair Summary Impairments Pain,ROM,Strength,Balance, Sensation,Bed Mobility, Transfers,Gait,Activity Tolerance Progress Towards Goals Slow Progress due to Pain,Slow Progress due to Activity Tolerance Assessment Summary Chip does participate better this afternoon and he appears to have some confusion. Gait distance and activity tolerance are better and his gait is quick and unsafe with rollator this afternoon: he requires cues for stepping closer to the rollator and to slow down and these do not occur during gait trial. Goals Bed Mobility Goal Independent Transfer Goal Independent,Front Wheeled Walker Gait Goal Independent,Front Wheel Walker Gait Distance 150 Other Goals up/down 2 steps using SPC/LEAD CLINICAL RESEARCH COORDINATOR CGA Days to Meet Goals 5 Frequency of Treatment Frequency Of Treatment Twice a Day Treatment Plan Physical Therapy Treatment Plan Bed Mobility Training,Transfer Training,Gait Training, Therapeutic Exercise,Balance Retraining,Post Op Education, Discharge Planning,Hot or Cold Pack,Neuromuscular Re-ed, Coordination Retraining,Manual Therapy Precautions Lumbar Precautions Log Roll,No Twisting,Limit Bending,Lifting Restriction of 10 lbs,Gait Belt above Incisional Area Recommendations To Nursing Amount of Assist Needed 1 Person Assist Discharge Recommendations PT Discharge Recommendations SNF Rehab Transportation Needs at Discharge Wheelchair/Cabulance
[2023-04-18] MEDS: ACETAMINOPHEN 325 MG TABLET 650 MG PO ×2 (04:23→09:26)
--- NOTE | 2023-04-18 07:00 | PC.NURSE ---
pt has slept most of this shift; he did get up to the [facility] w/ 2 person asst and fww, he was medicated twice with tylenol, but refused muscle relaxers or stronger pain meds
--- NOTE | 2023-04-18 07:42 | PM.DS.1 ---
History of Present Illness History of Present Illness Date Patient Seen: 04/18/23 Time Patient Seen: 07:42 Chief complaint: INPT Narrative: After the fusion was completed, the left sided flank incision was made over patient's spinal cord stimulator. Knife and scissors were used to free up scar tissue around the stimulator cord. Second mid line incision was made over his thoracic scar where his leads were placed. Exposure was made using scissors to free up the lead from the level of the thoracic incision. Once all scar tissue is freed from the spinal cord stimulator and the lead, the lead going into the spinal canal was gently pulled. The lead along the wires inside the spinal canal was able to be removed without any difficulty. Once the leads were removed from epidural space, the cable was cut from the computer to the spinal cord stimulator. The computer/battery along with the leads were removed from the subcutaneous tissue without any difficulty. The incisions for both the battery/computer and the midline leads were closed using 2-0 Vicryl suture and skin fly. Operative Date/Time/Diagnoses Date of procedure: 04/13/23 Time of procedure: 07:40 Pre-op diagnosis: 1. L3-4, L5-S1 foraminal stenosis 2. History of L4-5 fusion with hardware 3. Failed back fusion syndrome 4. History spinal cord stimulator implantation 5. Lumbar radiculopathy Post-op diagnosis: same Procedure & Clinicians Procedure: 1. L3-4, L5-S1 posterolateral and posterior interbody fusion 2. L3-4, L5-S1 posterior interbody cage placement 3. L4-5 posterior non-segmental instrumentation removal 4. L4-5 revision laminectomy with exploration of fusion 5. L3-4, L4-5, L5-S1 posterior segmental instrumentation with pedicle screw placement 6. [place] of bone marrow from iliac crest through a separate incision 7. Utilization of microsurgical technique and operating microscope 8. Utilization robotic assisted navigation Same procedure as scheduled: Yes Indications: Patient has been having chronic back pain and worsening lumbar radiculopathy. Patient had previous L4-5 fusion but did not have improvement of his back pain and leg pain mostly on the left side. Patient also had a prior spinal cord stimulator 3 years ago which stopped providing him relief. He has not been using his spinal cord stimulator for over a year and would like to have it removed. He was found to have severe neural foraminal stenosis at L3-4 and L5-S1 bilaterally correlating with his current symptoms. Patient failed multiple conservative management with worsening pain weakness and numbness in his lower extremity. Patient has been having difficulty performing activity of daily living. After discussing risks benefits of treatment options, patient elected proceed with surgery. Surgeon: Ale Mendoza Radio Board Operator Announcer: Lucrecia Donaldson Click Yes if Unassisted: No Anesthesia Type: General Operative Notes Closure Type: primary Specimen(s): none sent Prosthetic devices, grafts, tissues, transplants, or devices: Globus CREO MIS screws, Rise cages Applied: catheter Estimated Blood Loss (mL): 350 Blood products transfused: none Discharge Providers Provider Date of admission: 04/13/23 06:20 Discharge Date: 04/18/23 Primary care physician: Cally Salas MD Consults: 04/13/23 15:22 Consult to Occupational Therapy Evaluate & Treat Comment: Physician Instructions: Evaluate and treat Consult to Physical Therapy Evaluate & Treat Comment: Physician Instructions: Evaluate and Treat Discharge provider: Lucrecia Donaldson PA-C Summary Hospital Course Discharge Diagnosis: L3-4, L5-S1 foraminal stenosis, History spinal cord stimulator implantation, Lumbar radiculopathy; s/p L3-L4 and L5-S1 TLIF, posterior instrumentation L3-S1, removal of spinal cord stimulator and associated hardware Hospital Course: Mr Larry's hospital course was complicated by poor pain control and reports of assertive behavior that slowed his progress w/ PT. In discussion w/ his RN on 04/16/2023, it sounds like he drinks at least 2 'good sized' glasses of whiskey every evening, and his behavioral changes may have been partially contributed to alcohol withdrawal. He did not exhibit signs of delirium during admission. On the morning of POD# 5, he was planning to discharge to SNF for further rehab prior to going home. He was eating and voiding without difficulty and his pain was controlled with a combination of oral medications: APAP, gabapentin, cyclobenzaprine, and oxycodone. Exam Vital Signs (past 8 hours): Fraction of Inspired Oxygen 24 SaO2/FiO2 Ratio 387 Oxygen Delivery Method Room Air Oxygen Flow Rate 0 Narrative Exam Narrative: 5/5 strength in hip flexors, quadriceps, hamstrings, DF, PF, EHL bilaterally. Sensation to light touch intact in BLE, calves soft and compressible. Dressings to low back changed since surgery, CDI. Objective Labs 04/14/23 04:45 [facility] Medical History (Updated 03/26/19 @ 11:51 by Sandor Rivera MD) Diverticulosis HTN (hypertension) Surgical History (Updated 04/16/23 @ 10:28 by Lucrecia Donaldson PA-C) H/O colectomy Social History household members: spouse Smoking Status: Former smoker alcohol intake: current Discharge Assessment & Plan Assessment and Plan Assessment: L3-4, L5-S1 foraminal stenosis, History spinal cord stimulator implantation, Lumbar radiculopathy; s/p L3-L4 and L5-S1 TLIF, posterior instrumentation L3-S1, removal of spinal cord stimulator and associated hardware Plan of Treatment: Plan to discharge home today pending voiding trial after Sam removal and patient's ability to get out of bed and ambulate safely. 1) Continue multimodal pain management. 2) No lifting, twisting, deep bending, prolonged sitting. 3) keep dressing clean and dry, no soaking the incision site and posterior times, no topical ointments or creams to the incision site. 4) Follow up in 2 weeks at [facility] for as scheduled for postop appointment, wound check, staple removal. Discharge Plan Discharge Plan Patient Disposition: SNF Transfer to: [facility] Discharge orders & Medications Prescriptions: New acetaminophen 325 mg Tablet 650 mg PO Q6H PRN (Reason: Fever/Mild Pain (1-3)) Qty: 240 0RF cyclobenzaprine 10 mg Tablet 10 mg PO Q8HR PRN (Reason: Spasms) Qty: 60 0RF docusate sodium 100 mg Capsule 100 mg PO BID Qty: 60 1RF oxycodone 5 mg Tablet 5 mg PO Q4-6H PRN (Reason: Pain, Severe (7-10)) Qty: 60 0RF Rx Instructions: 1-2 tabs (5-10mg) PO q 4-6hrs Continued clonidine HCl 0.1 mg tablet 0.1 mg PO DAILY pravastatin 40 mg tablet 40 mg PO DAILY allopurinol 100 mg tablet 100 mg PO DAILY aspirin [Adult Low Dose Aspirin] 81 mg tablet,delayed release (DR/EC) 81 mg PO DAILY tamsulosin 0.4 mg capsule 0.4 mg PO DAILY lisinopril 30 mg tablet 30 mg PO DAILY hydrochlorothiazide 25 mg tablet 25 mg PO DAILY gabapentin 300 mg capsule 600 mg PO TID Discontinued naproxen sodium [Aleve] 220 mg capsule 440 mg PO DAILY Follow up/Referrals: Cally Salas MD [Primary Care Provider] - Ale Mendoza MD [Physician] - 04/29/23 10:00 am (Follow up w/ Vazquez Zamora PA-C, at [facility] in [place].) Diet/Activity/Treatments Diet: Diet as Tolerated Activity: No deep bending, twisting, lifting greater than 10 lb. No prolonged sitting. Cold/Heat Therapy: Heat to the low back for muscle spasm. Ice as needed for pain control. Skin/Wound/Dressing Care Report to your healthcare provider any signs of infection, such as:: chills, fever, night sweats, unusual drainage and unusual redness Dressing: Keep dressing intact until 2 week postop appointment. Keep dressing clean and dry. No soaking the incision site and posterior tubs. No topical ointments or creams to the incision site. Visit Report/Discharge Packet Instructions: DI for Prescription Opioid Use, DI for Transforaminal Lumbar Interbody Fusion Stand Alone Forms: Patient Portal/API, Surgery Discharge Discharge Data Primary Care Provider: Cally Salas Quality VTE Deep Vein Thrombosis/Pulmonary Embolism Present on Admission: No
[2023-04-18 08:28] VITALS: BP 122/62; PULSE 81; RESP 20; O2SAT 93
[2023-04-18] MEDS: TAMSULOSIN 0.4 MG CAPSULE PO (09:25)
[2023-04-18] MEDS: hydroCHLOROthiazide 25 MG TABLET PO (09:25)
[2023-04-18] MEDS: GABAPENTIN 300 MG CAPSULE 600 MG PO (09:26)
[2023-04-18] MEDS: lisinopriL 10 MG TABLET 30 MG PO (09:26)
[2023-04-18] MEDS: CYCLOBENZAPRINE 10 MG TABLET PO (09:26)
[2023-04-18] MEDS: cloNIDine 0.1 MG TABLET PO (09:26)
[2023-04-18] MEDS: PRAVASTATIN 20 MG TABLET 40 MG PO (09:26)
[2023-04-18] MEDS: allopurinoL 100 MG TABLET PO (09:26)
--- NOTE | 2023-04-18 10:01 | PT.IPTN ---
Current Diagnoses Spondylolisthesis, lumbar region (04/13/23) Spinal stenosis, lumbar region with neurogenic claudication (04/13/23) Arthrodesis status (04/13/23) Surgery Performed Operation Date: 04/13/23 07:45 Actual Procedures p L3-4, L5-S1 TLIF with posterior instrumentation, L3-S1 PSF with instrumentation-Robot - Ale Mendoza MD s Spinal Cord Stimulator Removal - Ale Mendoza MD Physical Therapy Treatment Note M2 PT-IP Current Condition Start: 04/14/23 15:29 Freq: NEEDED Status: Active Protocol: Document 04/15/23 10:50 AB (Rec: 04/15/23 13:39 AB [id number]) Physical Therapy Current Condition Current Condition Evaluation Date 04/15/23 Treatment Diagnosis L3-4,L5S1 TLIF; L4-5 instrumentation; difficulty in walking Onset Date 04/13/23 M3 PT-IP Subjective Start: 04/14/23 15:29 Freq: NEEDED Status: Active Protocol: Document 04/18/23 10:17 ZF (Rec: 04/18/23 10:29 ZF [id number]) Subjective Physical Therapy Visit Type Type Treatment Note Visit Start Time 10:01 Visit Stop Time 10:14 Number of COMMERCIAL FISHERMAN Visits 1 Physical Therapy Visit Comments Patient Comments Pt seen briefly to get from bed to commode, returned later for continued therapy. Therapy Pain Assessment Pain When Pain Assessed During Mobility Pain Present Pain Present Pain Reported Location back Pain Behaviors Facial Grimacing,Guarding Pain Management Techniques Distraction,Re-positioning M4 PT-IP Mobility and Gait Start: 04/14/23 15:29 Freq: NEEDED Status: Active Protocol: Document 04/18/23 10:17 ZF (Rec: 04/18/23 10:29 ZF [id number]) PT-Bed Mobility Assessment Supine to Sit Supine to Sit Maximum Assistance,2 Person Assistance,Head of Bed Elevated,Bedrails PT-Transfer Assessment Sit to and From Stand Sit to and from Stand Contact Guard Assistance,1 Person Assistance,Use of Upper Extremities Equipment Transfer Assistive Device Gait Belt,Front Wheeled Walker Orthotic/Prosthetic Devices or Brace: No Transfers Transfer Destination Chair,Bedside Commode Transfer Technique Stand Step Pivot Transfer Ability Level of Assist Contact Guard Assistance, Minimal Assistance,1 Person Assistance,Use of Upper Extremities Comments Mobility Comments Supine>Sitting EOB, pt refuses log roll, requires MaxA for sitting up, Javan for scooting to EOB. Once in sitting pt reports needing to get to commode immediately. STS from EOB w/2ww, CGA. SPT EOB> Commode, CGA. Pt requests continueing therapy later. Returned later, pt sitting up in recliner, agreeable to gait training. Pt requests using his personal 4ww. STS from low recliner requires Javan. Pt amb x110' in hallway, w/4ww, CGA. VC for keeping 4ww close, increasing stride length. Once back at recliner pt dems uncontrolled sit due to fatigue. Gait Assessment Gait Gait Assistance Required: Contact Guard Assist,1 Person Assist Distance (Feet) 110 Assistive Devices Assistive Device Gait Belt,4 Wheeled Walker Orthotic/Prosthetic Devices or Brace: No Gait Deviations General Gait Pattern Antalgic,Decreased Stride Length,Decreased Feet Clearance,Flexed Trunk,Step-to Gait,Wide Based Gait Factors Limiting Gait Function Factors Limiting Gait Function Decreased Activity Tolerance, Decreased Strength,Difficulty Following Directions,Pain,Poor Balance,Poor Safety Awareness Comments Gait Comments See Mobility Comments PT-Balance Assessment Sitting Balance and Reactions Static Sitting Balance Ability Good Dynamic Sitting Balance Ability Good Standing Balance and Reactions Static Standing Balance Ability Good Dynamic Standing Balance Ability Fair Device Used 4ww M5 PT-IP Objective Assessments Start: 04/14/23 15:29 Freq: NEEDED Status: Active Protocol: Document 04/15/23 10:50 AB (Rec: 04/15/23 13:39 AB [id number]) Orientation Orientation/Cognition Level of Alertness Confusional State Orientation Name,Age,Place,Situation Safety Awareness Decreased Safety Awareness Memory Description Short Term Impaired Gross Range of Motion Lower Extremity ROM Assessment Within Functional Limits Strength Lower Extremity Strength Assessment Bilaterally Impaired Comments Strength Comments RLE: 3-/5 LLE: 3+/5 Sensation Assessment Sensation Gross Sensation Right LE Impaired,Left LE Impaired Sensation Description Numbness Comments Sensation Comments B feet nueropathy per pt Muscle Tone Muscle Tone WNL Yes M6 PT-IP Treatment Start: 04/14/23 15:29 Freq: NEEDED Status: Active Protocol: Document 04/18/23 10:17 ALESSANDRA (Rec: 04/18/23 10:29 ZF [id number]) Physical Therapy Treatment Education Education Provided Precautions,Safety M7 PT-IP Assessment and Plan Start: 04/14/23 15:29 Freq: NEEDED Status: Active Protocol: Document 04/18/23 10:17 ALESSANDRA (Rec: 04/18/23 10:29 [id number]) PT Summary Assessment and Plan Potential Rehabilitation Potential Fair Summary Impairments Pain,ROM,Strength,Balance, Sensation,Bed Mobility, Transfers,Gait,Activity Tolerance Progress Towards Goals Slow Progress due to Pain,Slow Progress due to Activity Tolerance Assessment Summary Pt agreeable to therapy. Refuses to try log roll to get out of bed, instead putting out his hands and requesting assist. Reduced level of assist required for transfers and gait. Goals Bed Mobility Goal Independent Transfer Goal Independent,Front Wheeled Walker Gait Goal Independent,Front Wheel Walker Gait Distance 150 Other Goals up/down 2 steps using SPC/SHELTER ADVOCATE CGA Days to Meet Goals 5 Frequency of Treatment Frequency Of Treatment Twice a Day Treatment Plan Physical Therapy Treatment Plan Bed Mobility Training,Transfer Training,Gait Training, Therapeutic Exercise,Balance Retraining,Post Op Education, Discharge Planning,Hot or Cold Pack,Neuromuscular Re-ed, Coordination Retraining,Manual Therapy Precautions Lumbar Precautions Log Roll,No Twisting,Limit Bending,Lifting Restriction of 10 lbs,Gait Belt above Incisional Area Recommendations To Nursing Amount of Assist Needed 2 Person Assist Discharge Recommendations PT Discharge Recommendations SNF Rehab Transportation Needs at Discharge Wheelchair/Cabulance
--- NOTE | 2023-04-18 14:41 | CM.DPNOTE ---
DCP Note CROSSTIE INSPECTOR reviewed EMR. Ortho team placed dc order. CROSSTIE INSPECTOR coordinated with Keely often throughout the day. No [employer] auth as of 1500. Plan for dc to [facility] tomorrow, transport will be arranged with facility when auth available. CROSSTIE INSPECTOR updated spouse on phone. In agreement with plan. Pt sleeping heavily when this CROSSTIE INSPECTOR attempted to update him. CROSSTIE INSPECTOR updated RN, will update him when he wakes. CROSSTIE INSPECTOR updated ortho PA to cancel dc. Signed med list and PASRR in chart from Tuesday. Plan: [facility] via facility transport pending auth. CM team will continue to follow closely TOMI Leon
--- NOTE | 2023-04-18 15:37 | OT.IP.TRT ---
Current Diagnoses Spondylolisthesis, lumbar region (04/13/23) Spinal stenosis, lumbar region with neurogenic claudication (04/13/23) Arthrodesis status (04/13/23) Surgery Performed Operation Date: 04/13/23 07:45 Actual Procedures p L3-4, L5-S1 TLIF with posterior instrumentation, L3-S1 PSF with instrumentation-Robot - Ale Mendoza MD s Spinal Cord Stimulator Removal - Ale Mendoza MD Occupational Therapy Treatment Note M2 OT-IP Current Condition Start: 04/14/23 13:12 Freq: Status: Active Protocol: Document 04/14/23 13:12 [facility] (Rec: 04/14/23 13:35 [facility] [id number]) Occupational Therapy Current Condition Current Condition Evaluation Date 04/14/23 Treatment Diagnosis S/P L3-4, L5-S1 TLIF with post inst L3-S1 Diagnosis Onset Date 04/13/23 Post Operative Precautions Lumbar Precautions Log Roll,No Twisting,Limit Bending,Lifting Restriction of 10 lbs,Gait Belt above Incisional Area M3 OT- IP Subjective and Pain Start: 04/14/23 13:12 Freq: Status: Active Protocol: Document 04/18/23 15:27 [facility] (Rec: 04/18/23 15:36 [facility] [id number]) OT- Subjective Occupational Therapy Visit Type Type Treatment Note Visit Start Time 15:00 Visit Stop Time 15:27 Notes Nsg reported that pt had been up all night. Pt reclined in bed on entrance of OT. Occupational Therapy Visit Comments Patient Comments Pt agreed to perform ADLs for OT in preparation for his d/c. Patient/Caregiver Goals TO go home. OT Pain Assessment Pain When Pain Assessed During Mobility Pain Present Pain Present Denied Pain M4 OT- IP ADL's Start: 04/14/23 13:12 Freq: Status: Active Protocol: Document 04/18/23 15:27 [facility] (Rec: 04/18/23 15:36 [facility] [id number]) OT ADL-Oral Care General Eval Oral Care Ability Standby Assistance Areas of Assistance Retrieving/Set-Up of Items Comments Oral Care Comments Pt performs oral hygiene on set up of items while seated up in chair. OT ADL-Dressing General Eval Upper Body Dressing Ability Contact Guard Assistance Lower Body Dressing Ability Moderate Assistance Areas Needing Assistance Pants/Shorts,Socks Comments OT Dressing Comments Pt required tactile cues to [facility] gown. Pt was able to don lime puller shirt after OT handed it to him and initially held it open for him . Pt attempts to start pajama pants on feet but is unable to get his feet in. OT initiates both pant legs on feet. Pt impulsively stands before starting to pull pants up. OT pulls pants to his knees, pt is able to pull up pants the rest of the way. Pt requires total A for socks. Pt is able to put on slip on shoes once they are in reach. Dressing performed from the EOB or chair. M5 OT- IP IADL's Start: 04/14/23 13:12 Freq: Status: Active Protocol: Document 04/14/23 13:12 [facility] (Rec: 04/14/23 13:35 [facility] [id number]) OT-Instrumental Activities of Daily Living Deficits IADL Deficits Identified Deficits Home Safety Awareness Awareness of Need for Assistance at Home Decreased Awareness Home Safety Comments Pt very insistent on his care at this time. Pt insists his will be able to assist him for all his needs. Meal Preparation Meal Preparation Caregiver Provides Assist Mitering Machine Operator Mitering Machine Operator Caregiver Provides Assist M6 OT- IP Functional Cognition Start: 04/14/23 13:12 Freq: Status: Active Protocol: Document 04/15/23 15:37 [facility] (Rec: 04/15/23 16:00 [facility] [id number]) Cognitive Factors Limiting Selfcare Function Cognitive Ability Level of Alertness Alert,Drowsy Patient Orientation Name,Place,Situation Attention Span Ability Capable of Focused Attention, Capable of Sustained Attention Ability to Follow Commands Able to Follow One Step Commands with Increased Time, Able to Follow One Step Commands with Repetition Cognitive Comments Cognitive Assessment Comments Pt needing step by step instructions for all needs. VC for hand placement and FWW safety. M7 OT- IP Mobility and Balance Start: 04/14/23 13:12 Freq: Status: Active Protocol: Document 04/15/23 15:37 [facility] (Rec: 04/15/23 16:00 [facility] [id number]) OT- Bed Mobility Assessment Supine to Sit Supine to Sit Assist CGA, ,Head of Bed Elevated Sit to Supine Sit to Supine Assist CGA Scooting Scooting to Edge of Bed SBA OT-Transfer Assessment Sit to and From Stand Sit to and from Stand CGA Comments Mobility Comments OT- Balance Assessment Sitting Balance and Reactions Static Sitting Balance Ability Fair Dynamic Sitting Balance Ability Fair Standing Balance and Reactions Static Standing Balance Ability Fair Dynamic Standing Balance Ability Fair Comments Other Balance Tests/Deviations/Treatment M8 OT- IP Objective Assessments Start: 04/14/23 13:12 Freq: Status: Active Protocol: Document 04/14/23 13:12 [facility] (Rec: 04/14/23 13:35 [facility] [id number]) OT Gross Range of Motion Upper Extremity Range of Motion Assessment Left Impaired OT Strength Upper Extremity Strength Assessment Left Impaired M9 OT- IP Assessment and Plan Start: 04/14/23 13:12 Freq: Status: Active Protocol: Document 04/18/23 15:27 [facility] (Rec: 04/18/23 15:36 [email or web address] [id number]) OT Summary Assessment and Plan Potential Rehabilitation Potential Good Analytic Complexity at Evaluation Moderate Summary OT Impairments Pain,Balance,Functional Cognition,Functional Mobility, Self-Feeding,Grooming,Dressing ,Toileting,Bathing,Toilet Transfers,Shower Transfers, Activity Tolerance Progress Towards Goals Slow Progress due to Pain,Slow Progress due to Medical Issues,Slow Progress due to Activity Tolerance,Slow Progress due to Cognition Assessment Summary Pt performs sup>sit slowly with CGA, scoots EOB with SBA and performs most of his dressing while EOB. Pt impulsively stands before having pants pulled up safely. Once he completes pulling up pants in standing pt begins to walk to the chair. Pt ambs slowly with CGA and requires vcs to sit. Pt sits up in chair to perform sock and shoe portion of dressing. Once again, pt impulsively stands and begins walking. OT is able to redirect pt to EOB. Pt performs stand>sit with CGA, sit>sup with SBA. Pt left reclined in bed with all needs met, bed exit alarm set, and call light in reach. Cont per POC. Goals Grooming Goal Independent Dressing Goal Minimal Assistance Toileting Goal Standby Assistance Bathing Goal Minimal Assistance Toilet Transfer Goal Standby Assistance Days to Meet Goals 27 Treatment Plan OT Treatment Plan ADL Training,Functional Mobility,Patient/Family Education,Discharge Planning Discharge Recommendations OT Discharge Recommendations SNF Rehab Home Equipment Needs FWW, sock aid, BSC Transportation Needs at Discharge Wheelchair/Cabulance
[2023-04-18 20:00] VITALS: BP 128/67; PULSE 84; RESP 26; TEMP 36.3; O2SAT 92
[2023-04-19] MEDS: ACETAMINOPHEN 325 MG TABLET 650 MG PO ×3 (04:24→20:04)
[2023-04-19] MEDS: CYCLOBENZAPRINE 10 MG TABLET PO ×2 (04:24→13:26)
[2023-04-19 07:55] VITALS: BP 134/74; PULSE 82; RESP 16; TEMP 36.9; O2SAT 96
--- NOTE | 2023-04-19 08:11 | PC.NURSE ---
Patient reports large bowel movement yesterday (not documented). States he attempted to go again this morning but it was just gas.
[2023-04-19] MEDS: allopurinoL 100 MG TABLET PO (08:55)
[2023-04-19] MEDS: PRAVASTATIN 20 MG TABLET 40 MG PO (08:56)
[2023-04-19] MEDS: hydroCHLOROthiazide 25 MG TABLET PO (08:56)
[2023-04-19] MEDS: lisinopriL 10 MG TABLET 30 MG PO (08:56)
[2023-04-19] MEDS: cloNIDine 0.1 MG TABLET PO (08:56)
[2023-04-19] MEDS: DOCUSATE 100 MG CAPSULE PO (08:56)
[2023-04-19] MEDS: TAMSULOSIN 0.4 MG CAPSULE PO (08:56)
[2023-04-19] MEDS: GABAPENTIN 300 MG CAPSULE 600 MG PO ×2 (08:56→20:05)
--- NOTE | 2023-04-19 10:20 | PT.IPTN ---
Current Diagnoses Spondylolisthesis, lumbar region (04/13/23) Spinal stenosis, lumbar region with neurogenic claudication (04/13/23) Arthrodesis status (04/13/23) Surgery Performed Operation Date: 04/13/23 07:45 Actual Procedures p L3-4, L5-S1 TLIF with posterior instrumentation, L3-S1 PSF with instrumentation-Robot - Ale Mendoza MD s Spinal Cord Stimulator Removal - Ale Mendoza MD Physical Therapy Treatment Note M2 PT-IP Current Condition Start: 04/14/23 15:29 Freq: NEEDED Status: Active Protocol: Document 04/15/23 10:50 [facility] (Rec: 04/15/23 13:39 [facility] [id number]) Physical Therapy Current Condition Current Condition Evaluation Date 04/15/23 Treatment Diagnosis L3-4,L5S1 TLIF; L4-5 instrumentation; difficulty in walking Onset Date 04/13/23 M3 PT-IP Subjective Start: 04/14/23 15:29 Freq: NEEDED Status: Active Protocol: Document 04/19/23 10:40 [facility] (Rec: 04/19/23 10:50 [facility] [id number]) Subjective Physical Therapy Visit Type Type Treatment Note Visit Start Time 10:20 Visit Stop Time 10:39 Number of SENIOR UI DEVELOPER Visits 2 Physical Therapy Visit Comments Patient Comments pt found resting in chair, would like to get back to bed, is agreeable to PT. Therapy Pain Assessment Pain When Pain Assessed At Rest Pain Present Pain Present Pain Reported Location back Pain Behaviors Facial Grimacing,Guarding, Wincing Pain Management Techniques Distraction,Re-positioning M4 PT-IP Mobility and Gait Start: 04/14/23 15:29 Freq: NEEDED Status: Active Protocol: Document 04/19/23 10:40 [facility] (Rec: 04/19/23 10:50 [facility] [id number]) PT-Bed Mobility Assessment Sit to Supine Sit to Supine Minimal Assistance,1 Person Assistance PT-Transfer Assessment Sit to and From Stand Sit to and from Stand Maximum Assistance,1 Person Assistance,Use of Upper Extremities Equipment Transfer Assistive Device Gait Belt,Front Wheeled Walker Orthotic/Prosthetic Devices or Brace: No Comments Mobility Comments Pt recalled 1/3 spinal precautions(no bending and no lifting). STS from chair MaxA x1 with use of FWW, pt required cues for BUE support pushign from arms of chair. He ambulated in hallway ~100'SBA /CGA with FWW, tends to leave FWW out infront of him, requires cues to stay close to FWW. He performed steps x3 with single rail and SOCIAL INSURANCE ADVISER CGA. Sit to supine into bed, pt required Javan for LE's into bed and cues for logroll sequencing. Pt was left in bed , all needs met. Gait Assessment Gait Gait Assistance Required: Standby Assistance,Contact Guard Assist,1 Person Assist Distance (Feet) 100 Assistive Devices Assistive Device Gait Belt,Front Wheeled Walker Orthotic/Prosthetic Devices or Brace: No Gait Deviations General Gait Pattern Antalgic,Decreased Stride Length,Decreased Feet Clearance,Flexed Trunk,Step-to Gait,Wide Based Gait Factors Limiting Gait Function Factors Limiting Gait Function Decreased Activity Tolerance, Decreased Strength,Difficulty Following Directions,Pain,Poor Balance,Poor Safety Awareness Comments Gait Comments See Mobility Comments Stair Climbing Assessment Evaluation Level of Assist On Stairs Contact Guard Assistance,1 Person Assistance Devices Stair Climbing Assistive Devices Left Railing Technique/Endurance Stair Climbing Direction Ascend and Descend Stair Climbing Technique Step to Step Number of Steps Climbed 3 Comments Stair Climbing Comments See mobility comments PT-Balance Assessment Sitting Balance and Reactions Static Sitting Balance Ability Good Dynamic Sitting Balance Ability Fair Standing Balance and Reactions Static Standing Balance Ability Fair Dynamic Standing Balance Ability Fair Device Used FWW M5 PT-IP Objective Assessments Start: 04/14/23 15:29 Freq: NEEDED Status: Active Protocol: Document 04/15/23 10:50 [facility] (Rec: 04/15/23 13:39 [facility] [id number]) Orientation Orientation/Cognition Level of Alertness Confusional State Orientation Name,Age,Place,Situation Safety Awareness Decreased Safety Awareness Memory Description Short Term Impaired Gross Range of Motion Lower Extremity ROM Assessment Within Functional Limits Strength Lower Extremity Strength Assessment Bilaterally Impaired Comments Strength Comments RLE: 3-/5 LLE: 3+/5 Sensation Assessment Sensation Gross Sensation Right LE Impaired,Left LE Impaired Sensation Description Numbness Comments Sensation Comments B feet nueropathy per pt Muscle Tone Muscle Tone WNL Yes M6 PT-IP Treatment Start: 04/14/23 15:29 Freq: NEEDED Status: Active Protocol: Document 04/19/23 10:40 [facility] (Rec: 04/19/23 10:50 TS [id number]) Physical Therapy Treatment Education Education Provided Precautions,Safety M7 PT-IP Assessment and Plan Start: 04/14/23 15:29 Freq: NEEDED Status: Active Protocol: Document 04/19/23 10:40 [facility] (Rec: 04/19/23 10:50 TS [id number]) PT Summary Assessment and Plan Potential Rehabilitation Potential Fair Summary Impairments Pain,ROM,Strength,Balance, Sensation,Bed Mobility, Transfers,Gait,Activity Tolerance Progress Towards Goals Slow Progress due to Pain,Slow Progress due to Activity Tolerance Assessment Summary Sanjay made some progress with his mobility this session but continues to be limited by pain and poor activity tolerance. He continues to be MaxA to stand from lower surface of chair. He continues to ambulate ~100' before becoming fatigue. He progressed to stairs x3 CGA with use of rail and SOCIAL INSURANCE ADVISER. He continues to need max cues for safety and mobility, he demonstrates poor carryover. He continues to have difficulty recalling spinal precautions, he recalled 1/3. PT continues to recommend SNF at this time. Goals Bed Mobility Goal Independent Transfer Goal Independent,Front Wheeled Walker Gait Goal Independent,Front Wheel Walker Gait Distance 150 Other Goals up/down 2 steps using SPC/SOCIAL INSURANCE ADVISER CGA Days to Meet Goals 5 Frequency of Treatment Frequency Of Treatment Twice a Day Treatment Plan Physical Therapy Treatment Plan Bed Mobility Training,Transfer Training,Gait Training, Therapeutic Exercise,Balance Retraining,Post Op Education, Discharge Planning,Hot or Cold Pack,Neuromuscular Re-ed, Coordination Retraining,Manual Therapy Precautions Lumbar Precautions Log Roll,No Twisting,Limit Bending,Lifting Restriction of 10 lbs,Gait Belt above Incisional Area Recommendations To Nursing Amount of Assist Needed 2 Person Assist Discharge Recommendations PT Discharge Recommendations SNF Rehab Transportation Needs at Discharge Wheelchair/Cabulance
--- NOTE | 2023-04-19 14:16 | OT.IP.TRT ---
Current Diagnoses Spondylolisthesis, lumbar region (04/13/23) Spinal stenosis, lumbar region with neurogenic claudication (04/13/23) Arthrodesis status (04/13/23) Surgery Performed Operation Date: 04/13/23 07:45 Actual Procedures p L3-4, L5-S1 TLIF with posterior instrumentation, L3-S1 PSF with instrumentation-Robot - Ale Mendoza MD s Spinal Cord Stimulator Removal - Ale Mendoza MD Occupational Therapy Treatment Note M2 OT-IP Current Condition Start: 04/14/23 13:12 Freq: Status: Active Protocol: Document 04/14/23 13:12 [facility] (Rec: 04/14/23 13:35 [facility] [id number]) Occupational Therapy Current Condition Current Condition Evaluation Date 04/14/23 Treatment Diagnosis S/P L3-4, L5-S1 TLIF with post inst L3-S1 Diagnosis Onset Date 04/13/23 Post Operative Precautions Lumbar Precautions Log Roll,No Twisting,Limit Bending,Lifting Restriction of 10 lbs,Gait Belt above Incisional Area M3 OT- IP Subjective and Pain Start: 04/14/23 13:12 Freq: Status: Active Protocol: Document 04/19/23 14:18 [facility] (Rec: 04/19/23 14:34 [facility] [id number]) OT- Subjective Occupational Therapy Visit Type Type Treatment Note Visit Start Time 13:45 Visit Stop Time 14:16 Occupational Therapy Visit Comments Patient Comments Pt agreed to get up and to do caregiver training. Patient/Caregiver Goals Pt and his wanting pt to go to skilled rehab. OT Pain Assessment Pain When Pain Assessed At Rest Pain Present Pain Present Pain Reported Location back Pain Behaviors Facial Grimacing,Moaning M4 OT- IP ADL's Start: 04/14/23 13:12 Freq: Status: Active Protocol: Document 04/19/23 14:18 [facility] (Rec: 04/19/23 14:34 [facility] [id number]) OT OOF-Jicp-Xfkqvmt General Evaluation Self-Feeding Ability Independent OT ADL-Grooming General Evaluation Grooming Ability Standby Assistance Comments OT Grooming Comments Whiles seated. OT ADL-Oral Care General Eval Oral Care Ability Standby Assistance Areas of Assistance Retrieving/Set-Up of Items Comments Oral Care Comments Pt performs oral hygiene on set up of items while seated up in chair. Educated when standing to hinge at his hips or just spit into a cup to best follow his back precautions. Pt coughing while brushing his teeth and pt states the toothpaste just went down the wrong pipe. Had pt drink water and had to issues. OT ADL-Dressing General Eval Lower Body Dressing Ability Maximum Assistance Areas Needing Assistance Pants/Shorts,Socks Comments OT Dressing Comments MAX A at this time as pt will need assist to come to stand and for his needs. OT ADL-Toileting Comments OT Toileting Comments Not performed. Pt will need assist. OT ADL-Bathing Comments OT Bathing Comments Not performed. M5 OT- IP IADL's Start: 04/14/23 13:12 Freq: Status: Active Protocol: Document 04/14/23 13:12 [facility] (Rec: 04/14/23 13:35 [facility] [id number]) OT-Instrumental Activities of Daily Living Deficits IADL Deficits Identified Deficits Home Safety Awareness Awareness of Need for Assistance at Home Decreased Awareness Home Safety Comments Pt very insistent on his care at this time. Pt insists his will be able to assist him for all his needs. Meal Preparation Meal Preparation Caregiver Provides Assist Russet Repairer Russet Repairer Caregiver Provides Assist M6 OT- IP Functional Cognition Start: 04/14/23 13:12 Freq: Status: Active Protocol: Document 04/19/23 14:18 [facility] (Rec: 04/19/23 14:34 [facility] [id number]) Cognitive Factors Limiting Selfcare Function Cognitive Comments Cognitive Assessment Comments Pt needing cues for mobility needs and safety. Pt realizing that his current status is too much for his to be able to assist him at home. M7 OT- IP Mobility and Balance Start: 04/14/23 13:12 Freq: Status: Active Protocol: Document 04/19/23 14:18 [facility] (Rec: 04/19/23 14:34 [facility] [id number]) OT- Bed Mobility Assessment Supine to Sit Supine to Sit Assist Maximum Assistance,1 Person Assistance OT-Transfer Assessment Sit to and From Stand Sit to and from Stand Maximum Assistance,1 Person Assistance,2 Person Assistance Comments Mobility Comments MAX X 1 and not able to fully stand up all the way and would need another person to stand from the FWW. MODA to stand from the high bed to the FWW. Once on his feet DELFIN for steadying and guiding the FWW just for the transfer and MOD/ MAXA x1 to slow his descent down to sit again. OT- Balance Assessment Sitting Balance and Reactions Static Sitting Balance Ability Good Dynamic Sitting Balance Ability Fair Standing Balance and Reactions Static Standing Balance Ability Fair Dynamic Standing Balance Ability Poor Comments Other Balance Tests/Deviations/Treatment Pt able to sit on the bed : after assist to get up to the edge of the bed. Pt unsteady on his feet when up even with use of the FWW. M8 OT- IP Objective Assessments Start: 04/14/23 13:12 Freq: Status: Active Protocol: Document 04/14/23 13:12 [facility] (Rec: 04/14/23 13:35 [facility] [id number]) OT Gross Range of Motion Upper Extremity Range of Motion Assessment Left Impaired OT Strength Upper Extremity Strength Assessment Left Impaired M9 OT- IP Assessment and Plan Start: 04/14/23 13:12 Freq: Status: Active Protocol: Document 04/19/23 14:18 [facility] (Rec: 04/19/23 14:34 [facility] [id number]) OT Summary Assessment and Plan Potential Rehabilitation Potential Good Analytic Complexity at Evaluation Moderate Summary OT Impairments Pain,Balance,Functional Cognition,Functional Mobility, Self-Feeding,Grooming,Dressing ,Toileting,Bathing,Toilet Transfers,Shower Transfers, Activity Tolerance Progress Towards Goals Slow Progress due to Pain,Slow Progress due to Medical Issues,Slow Progress due to Activity Tolerance,Slow Progress due to Cognition Assessment Summary Today pt needing MAX A x1 to get to the edge of the bed and assist to get his trunk upright. Pt still needing MODA to stand to the fww from higher surfaces. Pt needing MAXA X 1-2 to stand form the recliner. Pt very unsteady and weak with his legs. Per pt's pt has fallen due to his weakness in his legs. Pt will greatly benefit from skilled rehab. Goals Grooming Goal Independent Dressing Goal Minimal Assistance Toileting Goal Standby Assistance Bathing Goal Minimal Assistance Toilet Transfer Goal Standby Assistance Days to Meet Goals 27 Treatment Plan OT Treatment Plan ADL Training,Functional Mobility,Patient/Family Education,Discharge Planning Discharge Recommendations OT Discharge Recommendations SNF Rehab Home Equipment Needs FWW, sock aid, BSC Transportation Needs at Discharge Wheelchair/Cabulance
--- NOTE | 2023-04-19 14:17 | CM.DPC ---
DCP Cont. Reviewed EMR and team rounds for status updates. Unfortunately, the [employer] auth is still pending. Jane Gr has checked daily, and this SEED CLEANER also left a message for their clinical review team to expedite this authorization for SNF placement. Updated on status, will plan to keep her updated tomorrow until this comes through.
--- NOTE | 2023-04-19 14:38 | P.PN_ITS ---
Subjective Subjective Date Patient Seen: 04/19/23 Time Patient Seen: 07:40 Interval history: Sanjay is found awake in bed this morning. States his pain is controlled with oral medications. Denies any numb new numbness or tingling down his legs. He has been working with physical therapy. Exam Vital Signs (past 8 hours): - 04/19/23 07:00 04/19/23 07:55 Temperature 98.4 F Pulse Rate 82 Respiratory Rate 16 Blood Pressure 134/74 Pulse Oximetry 96 Oxygen Delivery Method Room Air Oxygen Flow Rate 0 Fraction of Inspired Oxygen 24 SaO2/FiO2 Ratio 387 Oxygen Delivery Method Room Air Oxygen Flow Rate 0 Narrative Exam Narrative: Dressing appears clean and dry. No pain to compression along the posterior calf or thighs bilaterally. Sensation is grossly intact along the lower extremities. Able to dorsiflex and plantar flex against resistance at the ankles bilaterally. Objective Labs 04/14/23 04:45 [facility] Medical History (Updated 03/26/19 @ 11:51 by Sandor Rivera MD) Diverticulosis HTN (hypertension) Surgical History (Updated 04/16/23 @ 10:28 by Lucrecia Donaldson PA-C) H/O colectomy Social History household members: spouse Smoking Status: Former smoker alcohol intake: current Assessment & Plan Post-op Postoperative Procedures: Procedures Operation Date: 04/13/23 07:45 Actual Procedure Side Surgeon p L3-4, L5-S1 TLIF with posterior instrumentation, L3-S1 PSF with instrumentation-Robot Ale Mendoza MD s Spinal Cord Stimulator Removal Ale Mendoza MD Postoperative day: 6 Postoperative plan narrative: 1) Continue multimodal pain management. 2) Continue to work with inpatient PT 3) keep dressing clean and dry. 4) Awaiting authorization for SNF. Once approved, pt is ready for same day discharge into SNF's care. 4) Follow up in 1 week at [facility] for as scheduled for postop appointment, wound check, staple removal. Quality VTE Deep Vein Thrombosis/Pulmonary Embolism Present on Admission: No
--- NOTE | 2023-04-19 14:50 | PT.IPTN ---
Current Diagnoses Spondylolisthesis, lumbar region (04/13/23) Spinal stenosis, lumbar region with neurogenic claudication (04/13/23) Arthrodesis status (04/13/23) Surgery Performed Operation Date: 04/13/23 07:45 Actual Procedures p L3-4, L5-S1 TLIF with posterior instrumentation, L3-S1 PSF with instrumentation-Robot - Ale Mendoza MD s Spinal Cord Stimulator Removal - Ale Mendoza MD Physical Therapy Treatment Note M2 PT-IP Current Condition Start: 04/14/23 15:29 Freq: NEEDED Status: Active Protocol: Document 04/15/23 10:50 AB (Rec: 04/15/23 13:39 AB [id number]) Physical Therapy Current Condition Current Condition Evaluation Date 04/15/23 Treatment Diagnosis L3-4,L5S1 TLIF; L4-5 instrumentation; difficulty in walking Onset Date 04/13/23 M3 PT-IP Subjective Start: 04/14/23 15:29 Freq: NEEDED Status: Active Protocol: Document 04/19/23 15:03 TS (Rec: 04/19/23 15:12 TS [id number]) Subjective Physical Therapy Visit Type Type Treatment Note Visit Start Time 14:50 Visit Stop Time 15:03 Number of SPEECH PATHOLOGY SUPERVISOR Visits 3 Physical Therapy Visit Comments Patient Comments Pt found sitting EOB with nursing, would like to get back to bed, is agreeable to PT. Therapy Pain Assessment Pain When Pain Assessed At Rest Pain Present Pain Present Pain Reported Location back Pain Behaviors Facial Grimacing,Guarding, Wincing Pain Management Techniques Distraction,Re-positioning M4 PT-IP Mobility and Gait Start: 04/14/23 15:29 Freq: NEEDED Status: Active Protocol: Document 04/19/23 15:03 TS (Rec: 04/19/23 15:12 TS [id number]) PT-Bed Mobility Assessment Sit to Supine Sit to Supine Minimal Assistance,1 Person Assistance PT-Transfer Assessment Sit to and From Stand Sit to and from Stand Contact Guard Assistance,1 Person Assistance,Use of Upper Extremities Equipment Transfer Assistive Device Gait Belt,Front Wheeled Walker Orthotic/Prosthetic Devices or Brace: No Comments Mobility Comments STS from elevated bed CGA with use of 4WW, pt has flexed trunk in standing, requires cues for upright posture. pt ambulates ~80'SBA with 4WW in hallway, pt is unsteady and requires cues for staying closer to 4WW, has some fatigue and requests back ot room. Sit to supine into bed Javan for LE's, pt demonstrates some carryover of sequencing. Pt was left in bed, all needs met. Gait Assessment Gait Gait Assistance Required: Standby Assistance Distance (Feet) 80 Assistive Devices Assistive Device Gait Belt,Front Wheeled Walker Orthotic/Prosthetic Devices or Brace: No Gait Deviations General Gait Pattern Antalgic,Decreased Stride Length,Decreased Feet Clearance,Flexed Trunk,Step-to Gait,Wide Based Gait Factors Limiting Gait Function Factors Limiting Gait Function Decreased Activity Tolerance, Decreased Strength,Difficulty Following Directions,Pain,Poor Balance,Poor Safety Awareness Comments Gait Comments See Mobility Comments PT-Balance Assessment Sitting Balance and Reactions Static Sitting Balance Ability Good Dynamic Sitting Balance Ability Fair Standing Balance and Reactions Static Standing Balance Ability Fair Dynamic Standing Balance Ability Poor Device Used FWW M5 PT-IP Objective Assessments Start: 04/14/23 15:29 Freq: NEEDED Status: Active Protocol: Document 04/15/23 10:50 AB (Rec: 04/15/23 13:39 AB [id number]) Orientation Orientation/Cognition Level of Alertness Confusional State Orientation Name,Age,Place,Situation Safety Awareness Decreased Safety Awareness Memory Description Short Term Impaired Gross Range of Motion Lower Extremity ROM Assessment Within Functional Limits Strength Lower Extremity Strength Assessment Bilaterally Impaired Comments Strength Comments RLE: 3-/5 LLE: 3+/5 Sensation Assessment Sensation Gross Sensation Right LE Impaired,Left LE Impaired Sensation Description Numbness Comments Sensation Comments B feet nueropathy per pt Muscle Tone Muscle Tone WNL Yes M6 PT-IP Treatment Start: 04/14/23 15:29 Freq: NEEDED Status: Active Protocol: Document 04/19/23 15:03 TS (Rec: 04/19/23 15:12 [id number]) Physical Therapy Treatment Education Education Provided Precautions,Safety M7 PT-IP Assessment and Plan Start: 04/14/23 15:29 Freq: NEEDED Status: Active Protocol: Document 04/19/23 15:03 TS (Rec: 04/19/23 15:12 [id number]) PT Summary Assessment and Plan Potential Rehabilitation Potential Fair Summary Impairments Pain,ROM,Strength,Balance, Sensation,Bed Mobility, Transfers,Gait,Activity Tolerance Progress Towards Goals Slow Progress due to Pain,Slow Progress due to Activity Tolerance Assessment Summary Sanjay continues to make slow progress with his mobility. He continues to have poor activity tolerance mostly due to pain and can tolerate short instances of mobility. He lacks good safety awareness and requires frequent cues for safety and bed mobility sequencing. PT continues to recommend SNF rehab at this time to improve strenght and functional mobility. Goals Bed Mobility Goal Independent Transfer Goal Independent,Front Wheeled Walker Gait Goal Independent,Front Wheel Walker Gait Distance 150 Other Goals up/down 2 steps using SPC/HEATER ROOM HELPER CGA Days to Meet Goals 5 Frequency of Treatment Frequency Of Treatment Twice a Day Treatment Plan Physical Therapy Treatment Plan Bed Mobility Training,Transfer Training,Gait Training, Therapeutic Exercise,Balance Retraining,Post Op Education, Discharge Planning,Hot or Cold Pack,Neuromuscular Re-ed, Coordination Retraining,Manual Therapy Precautions Lumbar Precautions Log Roll,No Twisting,Limit Bending,Lifting Restriction of 10 lbs,Gait Belt above Incisional Area Recommendations To Nursing Amount of Assist Needed 2 Person Assist Discharge Recommendations PT Discharge Recommendations SNF Rehab Transportation Needs at Discharge Wheelchair/Cabulance
--- NOTE | 2023-04-19 15:50 | DIET.CONS ---
Dietary Consultation Note Admission Date: 04/13/2023 06:20 Assessment: 72 y M admitted for lumbar fusion. Nutrition screened for LOS. RD visited pt at bedside. Pt reports normal appetite at hospital and at home. Pt with no nutrition concerns or nutrition related questions. Ht: 190.5 cm Wt: 122.47 kg BMI: 33.7 UBW: Last BM: 04/19/23 (04/19/23 14:58) MNA: 14 Mckinley Score: 20 Diet: 04/13/23 Lunch General (Regular) Diet Diet Modifications: Food Texture: Level 7 - Regular Liquid Consistency: Level 0 - Thin Nutrition Percent Meal Consumed 100% 04/19/23 14:37 Labs: Hgb 13.2 g/dL (13.5-17.5) L 04/14/23 04:45 Hct 37.8 % (41-53) L 04/14/23 04:45 Nutrition Diagnosis: No nutrition related diagnosis at this time. Interventions: Encouraged adequate intake for recovery. EER: [id number] kcals/day (20 kcals/kg) 90-100 grams of protein/day (1.0-1.1 g/kg of IBW) Monitoring/Evaluations: PO Electronically Signed by: Ruth Rodríguez 04/19/23 15:50 Clinical Dietitian [address] [address]
[2023-04-19 20:00] VITALS: BP 132/65; PULSE 80; RESP 17; TEMP 36.4; O2SAT 94
[2023-04-20] MEDS: CYCLOBENZAPRINE 10 MG TABLET PO ×2 (00:22→19:49)
[2023-04-20] MEDS: OXYCODONE IR 5 MG TABLET PO (00:25)
--- NOTE | 2023-04-20 07:44 | P.PN_ITS ---
Subjective Subjective Date Patient Seen: 04/20/23 Time Patient Seen: 07:44 Interval history: In review of chart, it appears that PT continues to recommend SNF. Per CM notes, still waiting on insurance auth to transfer to [facility]. Pt tells me today that he would like to go home, but he does still need quite a bit of help getting in and out of bed and his does not think she can provide adequate support at home. He has been weaning himself off of oxycodone because it 'makes me loopy' and would like to try hydrocodone instead. Eating and voiding without difficulty. Exam Vital Signs (past 8 hours): Fraction of Inspired Oxygen 24 SaO2/FiO2 Ratio 387 Oxygen Delivery Method Room Air Oxygen Flow Rate 0 Narrative Exam Narrative: 5/5 strength in hip flexors, quadriceps, hamstrings, DF, PF, EHL bilaterally. Sensation to light touch intact in BLE, calves soft and compressible. Objective Labs 04/14/23 04:45 PFS Medical History (Updated 03/26/19 @ 11:51 by Sandor Rivera MD) Diverticulosis HTN (hypertension) Surgical History (Updated 04/16/23 @ 10:28 by Lucrecia Donaldson PA-C) H/O colectomy Social History household members: spouse Smoking Status: Former smoker alcohol intake: current Assessment & Plan Post-op Assessment and plan (1) S/P lumbar fusion: Assessment and Plan narrative: Discharge pending insurance auth for SNF. Will change pain med to hydrocodone 10/325, 1 q 4-6hrs and update rxs and med list. Postoperative Procedures: Procedures Operation Date: 04/13/23 07:45 Actual Procedure Side Surgeon p L3-4, L5-S1 TLIF with posterior instrumentation, L3-S1 PSF with instrumentation-Robot Ale Mendoza MD s Spinal Cord Stimulator Removal Ale Mendoza MD Postoperative day: 7 Quality VTE Deep Vein Thrombosis/Pulmonary Embolism Present on Admission: No
[2023-04-20 08:22] VITALS: BP 142/72; PULSE 81; RESP 18; TEMP 37.1; O2SAT 94
[2023-04-20 09:12] VITALS: BP 142/72; PULSE 81
[2023-04-20] MEDS: TAMSULOSIN 0.4 MG CAPSULE PO (09:12)
[2023-04-20] MEDS: hydroCHLOROthiazide 25 MG TABLET PO (09:12)
[2023-04-20] MEDS: HYDROCODONE/ACET 10/325 TABLET 1 TAB PO ×3 (09:12→19:50)
[2023-04-20] MEDS: cloNIDine 0.1 MG TABLET PO (09:12)
[2023-04-20] MEDS: DOCUSATE 100 MG CAPSULE PO ×2 (09:12→19:50)
[2023-04-20] MEDS: lisinopriL 10 MG TABLET 30 MG PO (09:12)
[2023-04-20] MEDS: allopurinoL 100 MG TABLET PO (09:13)
[2023-04-20] MEDS: GABAPENTIN 300 MG CAPSULE 600 MG PO ×3 (09:13→19:50)
[2023-04-20] MEDS: PRAVASTATIN 20 MG TABLET 40 MG PO (09:13)
--- NOTE | 2023-04-20 10:51 | PT.IPTN ---
Current Diagnoses Spondylolisthesis, lumbar region (04/13/23) Spinal stenosis, lumbar region with neurogenic claudication (04/13/23) Arthrodesis status (04/13/23) Surgery Performed Operation Date: 04/13/23 07:45 Actual Procedures p L3-4, L5-S1 TLIF with posterior instrumentation, L3-S1 PSF with instrumentation-Robot - Ale Mendoza MD s Spinal Cord Stimulator Removal - Ale Mendoza MD Physical Therapy Treatment Note M2 PT-IP Current Condition Start: 04/14/23 15:29 Freq: NEEDED Status: Active Protocol: Document 04/15/23 10:50 AB (Rec: 04/15/23 13:39 AB [id number]) Physical Therapy Current Condition Current Condition Evaluation Date 04/15/23 Treatment Diagnosis L3-4,L5S1 TLIF; L4-5 instrumentation; difficulty in walking Onset Date 04/13/23 M3 PT-IP Subjective Start: 04/14/23 15:29 Freq: NEEDED Status: Active Protocol: Document 04/20/23 11:52 TS (Rec: 04/20/23 12:04 TS [id number]) Subjective Physical Therapy Visit Type Type Treatment Note Visit Start Time 10:51 Visit Stop Time 11:25 Number of TANK CALIBRATOR Visits 4 Physical Therapy Visit Comments Patient Comments Pt found resting in bed, would like to use commode, is agreeable to Pt. Therapy Pain Assessment Pain When Pain Assessed At Rest Pain Present Pain Present Pain Reported Location back Pain Behaviors Facial Grimacing,Guarding, Wincing Pain Management Techniques Distraction,Re-positioning M4 PT-IP Mobility and Gait Start: 04/14/23 15:29 Freq: NEEDED Status: Active Protocol: Document 04/20/23 11:52 TS (Rec: 04/20/23 12:04 TS [id number]) PT-Bed Mobility Assessment Rolling Type of Rolling Log Rolling Level of Assist Minimal Assistance,1 Person Assistance Supine to Sit Supine to Sit Maximum Assistance,1 Person Assistance,Head of Bed Elevated Sit to Supine Sit to Supine Minimal Assistance,1 Person Assistance Scooting Scooting to Edge of Bed Standby Assistance PT-Transfer Assessment Sit to and From Stand Sit to and from Stand Contact Guard Assistance, Moderate Assistance,1 Person Assistance,Use of Upper Extremities Equipment Transfer Assistive Device Gait Belt,Front Wheeled Walker Orthotic/Prosthetic Devices or Brace: No Transfers Transfer Destination Chair,Bedside Commode Transfer Technique Stand Step Pivot Transfer Ability Level of Assist Contact Guard Assistance, Minimal Assistance,1 Person Assistance,Use of Upper Extremities Comments Mobility Comments Logroll to L side Javan, cues provided for sequencing and handrail assist. Supine to sit MaxA for uprighting trunk. STS from bed CGA with use of FWW. He performed stand step pivot to commode CGA, cues provided for slow eccentric control. STS from commode ModA with cues for pushing from arms of commode, nursing and spouse assisting with pericare . He ambulated in hallway ~100 ' SBA with FWW, cued pt for quad act due to pt's knees tending to slightly buckle. Si to supine into bed Javan for LEs and cues for logroll sequencing. Pt was left in bed , all needs met. Gait Assessment Gait Gait Assistance Required: Standby Assistance Distance (Feet) 100 Assistive Devices Assistive Device Gait Belt,Front Wheeled Walker Orthotic/Prosthetic Devices or Brace: No Gait Deviations General Gait Pattern Antalgic,Decreased Stride Length,Decreased Feet Clearance,Flexed Trunk,Step-to Gait,Wide Based Gait Factors Limiting Gait Function Factors Limiting Gait Function Decreased Activity Tolerance, Decreased Strength,Difficulty Following Directions,Pain,Poor Balance,Poor Safety Awareness Comments Gait Comments See Mobility Comments PT-Balance Assessment Sitting Balance and Reactions Static Sitting Balance Ability Good Dynamic Sitting Balance Ability Fair Standing Balance and Reactions Static Standing Balance Ability Fair Dynamic Standing Balance Ability Fair Device Used FWW M5 PT-IP Objective Assessments Start: 04/14/23 15:29 Freq: NEEDED Status: Active Protocol: Document 04/15/23 10:50 AB (Rec: 04/15/23 13:39 AB [id number]) Orientation Orientation/Cognition Level of Alertness Confusional State Orientation Name,Age,Place,Situation Safety Awareness Decreased Safety Awareness Memory Description Short Term Impaired Gross Range of Motion Lower Extremity ROM Assessment Within Functional Limits Strength Lower Extremity Strength Assessment Bilaterally Impaired Comments Strength Comments RLE: 3-/5 LLE: 3+/5 Sensation Assessment Sensation Gross Sensation Right LE Impaired,Left LE Impaired Sensation Description Numbness Comments Sensation Comments B feet nueropathy per pt Muscle Tone Muscle Tone WNL Yes M6 PT-IP Treatment Start: 04/14/23 15:29 Freq: NEEDED Status: Active Protocol: Document 04/20/23 11:52 TS (Rec: 04/20/23 12:04 TS [id number]) Physical Therapy Treatment Education Education Provided Precautions,Safety M7 PT-IP Assessment and Plan Start: 04/14/23 15:29 Freq: NEEDED Status: Active Protocol: Document 04/20/23 11:52 TS (Rec: 04/20/23 12:04 [id number]) PT Summary Assessment and Plan Potential Rehabilitation Potential Fair Summary Impairments Pain,ROM,Strength,Balance, Sensation,Bed Mobility, Transfers,Gait,Activity Tolerance Progress Towards Goals Slow Progress due to Pain,Slow Progress due to Activity Tolerance Assessment Summary Sanjay continues to have difficulty progressing his mobility. He continues to require MaxA for bed mobility and with max cues for sequencing. He is CGA for STS with bed elevated, Max/ModA from lower surfaces. He continues to ambulate ~100' SBA with FWW, pain limits him progressing further with his gait. PT continues to recommend SNF at this time. Goals Bed Mobility Goal Independent Transfer Goal Independent,Front Wheeled Walker Gait Goal Independent,Front Wheel Walker Gait Distance 150 Other Goals up/down 2 steps using SPC/RUBBER ROLLER GRINDER OPERATOR CGA Days to Meet Goals 5 Frequency of Treatment Frequency Of Treatment Twice a Day Treatment Plan Physical Therapy Treatment Plan Bed Mobility Training,Transfer Training,Gait Training, Therapeutic Exercise,Balance Retraining,Post Op Education, Discharge Planning,Hot or Cold Pack,Neuromuscular Re-ed, Coordination Retraining,Manual Therapy Precautions Lumbar Precautions Log Roll,No Twisting,Limit Bending,Lifting Restriction of 10 lbs,Gait Belt above Incisional Area Recommendations To Nursing Amount of Assist Needed 2 Person Assist Discharge Recommendations PT Discharge Recommendations SNF Rehab Transportation Needs at Discharge Wheelchair/Cabulance
--- NOTE | 2023-04-20 12:43 | CM.DPC ---
DCP Cont. Reviewed EMR and team rounds for status updates. Called [facility] for an update re: pending [employer] auth for SNF rehab. She had just spoken with them, it's still held up in clinical review, and the would not give an explanation why. Both [facility] and this SUPERVISOR MACHINE SETTER have left messages and requested that this be expedited. Will monitor closely, if still no auth tomorrow, we will need to possibly rework this plan to be home with Home Health and additional in-home hired care if needed.
--- NOTE | 2023-04-20 14:15 | OT.IP.TRT ---
Current Diagnoses Spondylolisthesis, lumbar region (04/13/23) Spinal stenosis, lumbar region with neurogenic claudication (04/13/23) Arthrodesis status (04/13/23) Surgery Performed Operation Date: 04/13/23 07:45 Actual Procedures p L3-4, L5-S1 TLIF with posterior instrumentation, L3-S1 PSF with instrumentation-Robot - Ale Mendoza MD s Spinal Cord Stimulator Removal - Ale Mendoza MD Occupational Therapy Treatment Note M2 OT-IP Current Condition Start: 04/14/23 13:12 Freq: Status: Active Protocol: Document 04/14/23 13:12 [facility] (Rec: 04/14/23 13:35 [facility] [id number]) Occupational Therapy Current Condition Current Condition Evaluation Date 04/14/23 Treatment Diagnosis S/P L3-4, L5-S1 TLIF with post inst L3-S1 Diagnosis Onset Date 04/13/23 Post Operative Precautions Lumbar Precautions Log Roll,No Twisting,Limit Bending,Lifting Restriction of 10 lbs,Gait Belt above Incisional Area M3 OT- IP Subjective and Pain Start: 04/14/23 13:12 Freq: Status: Active Protocol: Document 04/20/23 14:15 [facility] (Rec: 04/20/23 17:11 [facility] [id number]) OT- Subjective Occupational Therapy Visit Type Type Treatment Note Visit Start Time 14:15 Visit Stop Time 14:30 Occupational Therapy Visit Comments Patient Comments Pt states in too much pain and not wanting to get up, nursing notified that pt would like pain meds. Patient/Caregiver Goals To get better. Pt wanting to go home but aware best to go to skilled rehab first. OT Pain Assessment Pain When Pain Assessed At Rest Pain Present Pain Present Pain Reported Location back Intensity 8 Scale Used Numeric (0 - 10) M5 OT- IP IADL's Start: 04/14/23 13:12 Freq: Status: Active Protocol: Document 04/14/23 13:12 [facility] (Rec: 04/14/23 13:35 [facility] [id number]) OT-Instrumental Activities of Daily Living Deficits IADL Deficits Identified Deficits Home Safety Awareness Awareness of Need for Assistance at Home Decreased Awareness Home Safety Comments Pt very insistent on his care at this time. Pt insists his will be able to assist him for all his needs. Meal Preparation Meal Preparation Caregiver Provides Assist Retort Loader Retort Loader Caregiver Provides Assist M6 OT- IP Functional Cognition Start: 04/14/23 13:12 Freq: Status: Active Protocol: Document 04/20/23 14:15 [facility] (Rec: 04/20/23 17:11 [facility] [id number]) Cognitive Factors Limiting Selfcare Function Cognitive Ability Level of Alertness Alert,Confusional State Cognitive Comments Cognitive Assessment Comments Pt not aware that he should call the nurse for pain medications. Pt was under the impression that the nurse would give him medications. Pt having the most difficulty with transitions from side-lying to sitting. Educated pt on techniques and able to show pt having to get all the way over to his left hip so able to push up to sitting. Able to talk to pt at length that his pain increase in pain is temporary and will subside after sitting upright . Pt would benefit from formal cognitive assessment. M8 OT- IP Objective Assessments Start: 04/14/23 13:12 Freq: Status: Active Protocol: Document 04/14/23 13:12 [facility] (Rec: 04/14/23 13:35 [facility] [id number]) OT Gross Range of Motion Upper Extremity Range of Motion Assessment Left Impaired OT Strength Upper Extremity Strength Assessment Left Impaired M9 OT- IP Assessment and Plan Start: 04/14/23 13:12 Freq: Status: Active Protocol: Document 04/20/23 14:15 [facility] (Rec: 04/20/23 17:11 [facility] [id number]) OT Summary Assessment and Plan Potential Rehabilitation Potential Good Analytic Complexity at Evaluation Moderate Summary OT Impairments Pain,Balance,Functional Cognition,Functional Mobility, Self-Feeding,Grooming,Dressing ,Toileting,Bathing,Toilet Transfers,Shower Transfers, Activity Tolerance Progress Towards Goals Slow Progress due to Pain,Slow Progress due to Medical Issues,Slow Progress due to Activity Tolerance,Slow Progress due to Cognition Assessment Summary Pt still in lots of pain and having difficulty with transition especially for bed mobility. Having to educated pt to call his nurse when having pain so able to get pain medications, as pt not aware to do so. Pt still will benefit from skilled rehab. Goals Grooming Goal Independent Dressing Goal Minimal Assistance Toileting Goal Standby Assistance Bathing Goal Minimal Assistance Toilet Transfer Goal Standby Assistance Days to Meet Goals 26 Treatment Plan OT Treatment Plan ADL Training,Functional Mobility,Patient/Family Education,Discharge Planning Discharge Recommendations OT Discharge Recommendations SNF Rehab Home Equipment Needs FWW, sock aid, BSC Transportation Needs at Discharge Wheelchair/Cabulance
--- NOTE | 2023-04-20 15:33 | PT-IP ANOTE ---
Pt refused to work with PT this afternoon. Pt reports high pain in his back and would like to rest. PT will check on pt tomorrow morning.
[2023-04-20] MEDS: SENNOSIDES 8.6 MG TABLET 17.2 MG PO (19:49)
[2023-04-20 20:00] VITALS: BP 109/68; PULSE 70; RESP 16; TEMP 36.7; O2SAT 94
[2023-04-21] MEDS: HYDROCODONE/ACET 10/325 TABLET 1 TAB PO ×3 (06:15→21:45)
[2023-04-21 08:52] VITALS: BP 115/77; PULSE 87; RESP 18; TEMP 36.3; O2SAT 97
--- NOTE | 2023-04-21 08:52 | PT.IPTN ---
Current Diagnoses Spondylolisthesis, lumbar region (04/13/23) Spinal stenosis, lumbar region with neurogenic claudication (04/13/23) Arthrodesis status (04/13/23) Surgery Performed Operation Date: 04/13/23 07:45 Actual Procedures p L3-4, L5-S1 TLIF with posterior instrumentation, L3-S1 PSF with instrumentation-Robot - Ale Mendoza MD s Spinal Cord Stimulator Removal - Ale Mendoza MD Physical Therapy Treatment Note M2 PT-IP Current Condition Start: 04/14/23 15:29 Freq: NEEDED Status: Active Protocol: Document 04/15/23 10:50 AB (Rec: 04/15/23 13:39 AB [id number]) Physical Therapy Current Condition Current Condition Evaluation Date 04/15/23 Treatment Diagnosis L3-4,L5S1 TLIF; L4-5 instrumentation; difficulty in walking Onset Date 04/13/23 M3 PT-IP Subjective Start: 04/14/23 15:29 Freq: NEEDED Status: Active Protocol: Document 04/21/23 09:32 TS (Rec: 04/21/23 09:45 TS [id number]) Subjective Physical Therapy Visit Type Type Treatment Note Visit Start Time 08:52 Visit Stop Time 09:30 Number of LIME TRIMMER Visits 5 Physical Therapy Visit Comments Patient Comments Pt found resting in bed, reports pain is 7/10, agreeable to PT. Therapy Pain Assessment Pain When Pain Assessed At Rest Pain Present Pain Present Pain Reported Location back Pain Behaviors Facial Grimacing,Guarding, Wincing Pain Management Techniques Distraction,Re-positioning M4 PT-IP Mobility and Gait Start: 04/14/23 15:29 Freq: NEEDED Status: Active Protocol: Document 04/21/23 09:32 TS (Rec: 04/21/23 09:45 TS [id number]) PT-Bed Mobility Assessment Rolling Type of Rolling Log Rolling Level of Assist Contact Guard Assistance,1 Person Assistance Supine to Sit Supine to Sit Maximum Assistance,1 Person Assistance,Head of Bed Elevated Sit to Supine Sit to Supine Minimal Assistance,1 Person Assistance Scooting Scooting to Edge of Bed Standby Assistance PT-Transfer Assessment Sit to and From Stand Sit to and from Stand Moderate Assistance,1 Person Assistance,Use of Upper Extremities Equipment Transfer Assistive Device Gait Belt,Front Wheeled Walker Orthotic/Prosthetic Devices or Brace: No Comments Mobility Comments Logroll to R side CGA, pt demonstrates good carryover of sequencing. Supine to sit MaxA for uprighting trunk with BUE support. STS from bed with 4WW ModA from elevated bed. In standing pt's knees are slightly buckling, requires cues for quad act. He ambulated ~100' CGA with 4WW, knees continue to be soft and some buckling. He performed steps x3 Javan, x1 with spouse, pt had x1 buckling when ascending step. Sit to supine into bed Javan for LEs. pt was left in bed, all needs met. Gait Assessment Gait Gait Assistance Required: Contact Guard Assist Distance (Feet) 100 Assistive Devices Assistive Device Gait Belt,Front Wheeled Walker Orthotic/Prosthetic Devices or Brace: No Gait Deviations General Gait Pattern Antalgic,Decreased Stride Length,Decreased Feet Clearance,Flexed Trunk,Step-to Gait,Wide Based Gait Factors Limiting Gait Function Factors Limiting Gait Function Decreased Activity Tolerance, Decreased Strength,Difficulty Following Directions,Pain,Poor Balance,Poor Safety Awareness Comments Gait Comments See Mobility Comments Stair Climbing Assessment Evaluation Level of Assist On Stairs Minimal Assistance,1 Person Assistance Devices Stair Climbing Assistive Devices Right Railing Technique/Endurance Stair Climbing Direction Ascend and Descend Stair Climbing Technique Step to Step Number of Steps Climbed 3 Comments Stair Climbing Comments See mobility comments PT-Balance Assessment Sitting Balance and Reactions Static Sitting Balance Ability Good Dynamic Sitting Balance Ability Fair Standing Balance and Reactions Static Standing Balance Ability Fair Dynamic Standing Balance Ability Fair Device Used 4WW M5 PT-IP Objective Assessments Start: 04/14/23 15:29 Freq: NEEDED Status: Active Protocol: Document 04/15/23 10:50 AB (Rec: 04/15/23 13:39 AB [id number]) Orientation Orientation/Cognition Level of Alertness Confusional State Orientation Name,Age,Place,Situation Safety Awareness Decreased Safety Awareness Memory Description Short Term Impaired Gross Range of Motion Lower Extremity ROM Assessment Within Functional Limits Strength Lower Extremity Strength Assessment Bilaterally Impaired Comments Strength Comments RLE: 3-/5 LLE: 3+/5 Sensation Assessment Sensation Gross Sensation Right LE Impaired,Left LE Impaired Sensation Description Numbness Comments Sensation Comments B feet nueropathy per pt Muscle Tone Muscle Tone WNL Yes M6 PT-IP Treatment Start: 04/14/23 15:29 Freq: NEEDED Status: Active Protocol: Document 04/21/23 09:32 TS (Rec: 04/21/23 09:45 TS [id number]) Physical Therapy Treatment Education Education Provided Precautions,Safety M7 PT-IP Assessment and Plan Start: 04/14/23 15:29 Freq: NEEDED Status: Active Protocol: Document 04/21/23 09:32 TS (Rec: 04/21/23 09:45 TS [id number]) PT Summary Assessment and Plan Potential Rehabilitation Potential Fair Summary Impairments Pain,ROM,Strength,Balance, Sensation,Bed Mobility, Transfers,Gait,Activity Tolerance Progress Towards Goals Slow Progress due to Pain,Slow Progress due to Activity Tolerance Assessment Summary Sanjay continues to make slow progress with his mobility. He continues to require MaxA for sitting up to EOB. ModA for STS from elevated bed with use of 4WW. He continues to ambulate ~100' with 4WW, knees are soft with some buckling during gait and steps x3. PT continues to recommend SNF rehab at this time to improve strength and funcitonal mobility. Goals Bed Mobility Goal Independent Transfer Goal Independent,Front Wheeled Walker Gait Goal Independent,Front Wheel Walker Gait Distance 150 Other Goals up/down 2 steps using SPC/VISUAL LEAD CGA Days to Meet Goals 5 Frequency of Treatment Frequency Of Treatment Twice a Day Treatment Plan Physical Therapy Treatment Plan Bed Mobility Training,Transfer Training,Gait Training, Therapeutic Exercise,Balance Retraining,Post Op Education, Discharge Planning,Hot or Cold Pack,Neuromuscular Re-ed, Coordination Retraining,Manual Therapy Precautions Lumbar Precautions Log Roll,No Twisting,Limit Bending,Lifting Restriction of 10 lbs,Gait Belt above Incisional Area Recommendations To Nursing Amount of Assist Needed 2 Person Assist Discharge Recommendations PT Discharge Recommendations SNF Rehab Transportation Needs at Discharge Wheelchair/Cabulance
[2023-04-21 09:15] VITALS: BP 115/77
[2023-04-21] MEDS: TAMSULOSIN 0.4 MG CAPSULE PO (09:15)
[2023-04-21] MEDS: GABAPENTIN 300 MG CAPSULE 600 MG PO ×3 (09:15→21:45)
[2023-04-21] MEDS: PRAVASTATIN 20 MG TABLET 40 MG PO (09:15)
[2023-04-21] MEDS: cloNIDine 0.1 MG TABLET PO (09:15)
[2023-04-21 09:16] VITALS: BP 115/77
[2023-04-21] MEDS: ACETAMINOPHEN 325 MG TABLET 650 MG PO (09:16)
[2023-04-21] MEDS: allopurinoL 100 MG TABLET PO (09:16)
[2023-04-21] MEDS: lisinopriL 10 MG TABLET 30 MG PO (09:16)
[2023-04-21] MEDS: hydroCHLOROthiazide 25 MG TABLET PO (09:16)
[2023-04-21] MEDS: DOCUSATE 100 MG CAPSULE PO ×2 (09:16→21:46)
--- NOTE | 2023-04-21 10:45 | OT.IP.TRT ---
Current Diagnoses Spondylolisthesis, lumbar region (04/13/23) Spinal stenosis, lumbar region with neurogenic claudication (04/13/23) Arthrodesis status (04/13/23) Surgery Performed Operation Date: 04/13/23 07:45 Actual Procedures p L3-4, L5-S1 TLIF with posterior instrumentation, L3-S1 PSF with instrumentation-Robot - Ale Mendoza MD s Spinal Cord Stimulator Removal - Ale Mendoza MD Occupational Therapy Treatment Note M2 OT-IP Current Condition Start: 04/14/23 13:12 Freq: Status: Active Protocol: Document 04/14/23 13:12 [facility] (Rec: 04/14/23 13:35 [facility] [id number]) Occupational Therapy Current Condition Current Condition Evaluation Date 04/14/23 Treatment Diagnosis S/P L3-4, L5-S1 TLIF with post inst L3-S1 Diagnosis Onset Date 04/13/23 Post Operative Precautions Lumbar Precautions Log Roll,No Twisting,Limit Bending,Lifting Restriction of 10 lbs,Gait Belt above Incisional Area M3 OT- IP Subjective and Pain Start: 04/14/23 13:12 Freq: Status: Active Protocol: Document 04/21/23 11:34 [facility] (Rec: 04/21/23 11:41 [facility] [id number]) OT- Subjective Occupational Therapy Visit Type Type Treatment Note Visit Start Time 10:25 Visit Stop Time 10:40 Occupational Therapy Visit Comments Patient Comments Pt wanting to use the BSC. Patient/Caregiver Goals TO go to skilled rehab. OT Pain Assessment Pain When Pain Assessed At Rest Pain Present Pain Present Pain Reported Location back Pain Behaviors Facial Grimacing,Guarding, Holding Area M4 OT- IP ADL's Start: 04/14/23 13:12 Freq: Status: Active Protocol: Document 04/21/23 11:34 [facility] (Rec: 04/21/23 11:41 [facility] [id number]) OT GJT-Bpfu-[place] General Evaluation Self-Feeding Ability Independent OT ADL-Grooming Comments OT Grooming Comments Not performed. OT ADL-Oral Care Comments Oral Care Comments Not performed. OT ADL-Dressing General Eval Lower Body Dressing Ability Maximum Assistance Comments OT Dressing Comments Pt still needing MAXA X1 for all LB dressing needs. OT ADL-Toileting General Evaluation Toileting Ability Maximum Assistance Areas Needing Assistance Empty Catheter or Colostomy, Manage Clothing OT ADL-Bathing Comments OT Bathing Comments Not performed. M5 OT- IP IADL's Start: 04/14/23 13:12 Freq: Status: Active Protocol: Document 04/14/23 13:12 [facility] (Rec: 04/14/23 13:35 [facility] [id number]) OT-Instrumental Activities of Daily Living Deficits IADL Deficits Identified Deficits Home Safety Awareness Awareness of Need for Assistance at Home Decreased Awareness Home Safety Comments Pt very insistent on his care at this time. Pt insists his will be able to assist him for all his needs. Meal Preparation Meal Preparation Caregiver Provides Assist Waiter Waiter Caregiver Provides Assist M6 OT- IP Functional Cognition Start: 04/14/23 13:12 Freq: Status: Active Protocol: Document 04/21/23 11:34 [facility] (Rec: 04/21/23 11:41 [facility] [id number]) Cognitive Factors Limiting Selfcare Function Cognitive Ability Level of Alertness Alert Cognitive Comments Cognitive Assessment Comments Pt needing lots of encouragement and vc for log rolling techniques. M7 OT- IP Mobility and Balance Start: 04/14/23 13:12 Freq: Status: Active Protocol: Document 04/21/23 11:34 [facility] (Rec: 04/21/23 11:41 [facility] [id number]) OT- Bed Mobility Assessment Rolling Level of Assistance Moderate Assistance Supine to Sit Supine to Sit Assist Moderate Assistance,1 Person Assistance OT-Transfer Assessment Sit to and From Stand Sit to and from Stand Moderate Assistance,1 Person Assistance Comments Mobility Comments Pt needing use of the green pad to help shift his hips over so able to roll to his right and get up form side lying with DELFIN. Pt much better today. MOD A x1 to stand and having to hold the FWW in place. OT- Balance Assessment Sitting Balance and Reactions Static Sitting Balance Ability Good Dynamic Sitting Balance Ability Fair Standing Balance and Reactions Static Standing Balance Ability Fair Dynamic Standing Balance Ability Fair Comments Other Balance Tests/Deviations/Treatment Pt still unsteady on his feet : and heavily relies on the FWW to stand. M8 OT- IP Objective Assessments Start: 04/14/23 13:12 Freq: Status: Active Protocol: Document 04/14/23 13:12 [facility] (Rec: 04/14/23 13:35 [facility] [id number]) OT Gross Range of Motion Upper Extremity Range of Motion Assessment Left Impaired OT Strength Upper Extremity Strength Assessment Left Impaired M9 OT- IP Assessment and Plan Start: 04/14/23 13:12 Freq: Status: Active Protocol: Document 04/21/23 11:34 [facility] (Rec: 04/21/23 11:41 [facility] [id number]) OT Summary Assessment and Plan Potential Rehabilitation Potential Good Analytic Complexity at Evaluation Moderate Summary OT Impairments Pain,Balance,Functional Cognition,Functional Mobility, Self-Feeding,Grooming,Dressing ,Toileting,Bathing,Toilet Transfers,Shower Transfers, Activity Tolerance Progress Towards Goals Slow Progress due to Pain,Slow Progress due to Medical Issues,Slow Progress due to Activity Tolerance Assessment Summary Pt still needing lots of assistance for his ADl and mobility needs. Pt is a high fall risk and will benefit from skilled rehab. Goals Grooming Goal Independent Dressing Goal Minimal Assistance Toileting Goal Standby Assistance Bathing Goal Minimal Assistance Toilet Transfer Goal Independent Shower Transfer Goal Standby Assistance Days to Meet Goals 25 Frequency of Treatment Frequency Of Treatment Once a Day Treatment Plan OT Treatment Plan ADL Training,Functional Mobility,Patient/Family Education,Discharge Planning Discharge Recommendations OT Discharge Recommendations SNF Rehab Home Equipment Needs FWW, sock aid, BSC Transportation Needs at Discharge Wheelchair/Cabulance
--- NOTE | 2023-04-21 10:55 | CM.DPC ---
DCP Cont. Reviewed EMR and team rounds for status updates. Called [facility], still no [facility] auth. Called [employer], lengthy phone conversation with the signs and displays sales representative, he was able to confirm that the prior-auth was approved for [facility] as of today. Called [facility] and requested an urgent return call in order to expedite his transfer for placement there today, as well as confirm transportation plan. Will update pt's and inpt team once we have a plan confirmed with [facility]. [facility] Auth# [id number]
--- NOTE | 2023-04-21 12:55 | CM.DPC ---
DCP Update [facility] returned call and accepts pt for tomorrow, they arranged p/u for 11:00am. SNOW REMOVING SUPERVISOR called and updated pt's , who is agreeable with this plan. Will continue to monitor until d/c is complete.
[2023-04-21] MEDS: ASPIRIN EC 81 MG TABLET PO (14:16)
--- NOTE | 2023-04-21 14:32 | PM.PNPO.1 ---
Subjective Subjective Date Patient Seen: 04/21/23 Time Patient Seen: 14:32 Interval history: Spoke to pt and spouse a couple times today. Per CM note, looks like auth for [facility] was finally received and pt to discharge tomorrow. Good pain control w/ hydrocodone and cyclobenzaprine. Exam Vital Signs (past 8 hours): - 04/21/23 08:52 04/21/23 09:15 04/21/23 09:16 Temperature 97.4 F L Pulse Rate 87 Respiratory Rate 18 Blood Pressure 115/77 115/77 115/77 Pulse Oximetry 97 Fraction of Inspired Oxygen 24 SaO2/FiO2 Ratio 387 Oxygen Delivery Method Room Air Oxygen Flow Rate 0 Narrative Exam Narrative: 5/5 strength in hip flexors, quadriceps, hamstrings, DF, PF, EHL bilaterally. Sensation to light touch intact throughout BLE. Calves soft and compressible. Dressings CDI. Objective Labs 04/14/23 04:45 PFSH Medical History (Updated 03/26/19 @ 11:51 by Sandor Rivera MD) Diverticulosis HTN (hypertension) Surgical History (Updated 04/16/23 @ 10:28 by Lucrecia Donaldson PA-C) H/O colectomy Social History household members: spouse Smoking Status: Former smoker alcohol intake: current Assessment & Plan Post-op Assessment and plan (1) S/P lumbar fusion: Assessment and Plan narrative: [facility] Med list printed, rxs in chart, will add addendum to most recent discharge summary. Continue oral pain meds. ASA 81mg daily per home restarted today. F/u in office in 1 week as scheduled. Postoperative Procedures: Procedures Operation Date: 04/13/23 07:45 Actual Procedure Side Surgeon p L3-4, L5-S1 TLIF with posterior instrumentation, L3-S1 PSF with instrumentation-Robot Ale Mendoza MD s Spinal Cord Stimulator Removal Ale Mendoza MD Postoperative day: 8 Quality VTE Deep Vein Thrombosis/Pulmonary Embolism Present on Admission: No
--- NOTE | 2023-04-21 15:06 | PT-IP ANOTE ---
Pt refused to work with PT this afternoon. Reports high pain and would like to rest. PT will check on pt tomorrow morning.
[2023-04-21 20:00] VITALS: BP 112/63; PULSE 74; RESP 16; TEMP 36.1; O2SAT 98
[2023-04-21] MEDS: CYCLOBENZAPRINE 10 MG TABLET PO (21:46)
[2023-04-21] MEDS: SENNOSIDES 8.6 MG TABLET 17.2 MG PO (21:46)
--- NOTE | 2023-04-22 07:05 | P.DS_ITS ---
History of Present Illness History of Present Illness Date Patient Seen: 04/22/23 Time Patient Seen: 07:06 Chief complaint: INPT Narrative: Narrative: After the fusion was completed, the left sided flank incision was made over patient's spinal cord stimulator. Knife and scissors were used to free up scar tissue around the stimulator cord. Second mid line incision was made over his thoracic scar where his leads were placed. Exposure was made using scissors to free up the lead from the level of the thoracic incision. Once all scar tissue is freed from the spinal cord stimulator and the lead, the lead going into the spinal canal was gently pulled. The lead along the wires inside the spinal canal was able to be removed without any difficulty. Once the leads were removed from epidural space, the cable was cut from the computer to the spinal cord stimulator. The computer/battery along with the leads were removed from the subcutaneous tissue without any difficulty. The incisions for both the battery/computer and the midline leads were closed using 2-0 Vicryl suture and skin fly. Operative Date/Time/Diagnoses Date of procedure: 04/13/23 Time of procedure: 07:40 Pre-op diagnosis: 1. L3-4, L5-S1 foraminal stenosis 2. History of L4-5 fusion with hardware 3. Failed back fusion syndrome 4. History spinal cord stimulator implantation 5. Lumbar radiculopathy Post-op diagnosis: same Procedure & Clinicians Procedure: 1. L3-4, L5-S1 posterolateral and posterior interbody fusion 2. L3-4, L5-S1 posterior interbody cage placement 3. L4-5 posterior non-segmental instrumentation removal 4. L4-5 revision laminectomy with exploration of fusion 5. L3-4, L4-5, L5-S1 posterior segmental instrumentation with pedicle screw placement 6. [place] of bone marrow from iliac crest through a separate incision 7. Utilization of microsurgical technique and operating microscope 8. Utilization robotic assisted navigation Same procedure as scheduled: Yes Indications: Patient has been having chronic back pain and worsening lumbar radiculopathy. Patient had previous L4-5 fusion but did not have improvement of his back pain and leg pain mostly on the left side. Patient also had a prior spinal cord stimulator 3 years ago which stopped providing him relief. He has not been using his spinal cord stimulator for over a year and would like to have it removed. He was found to have severe neural foraminal stenosis at L3-4 and L5-S1 bilaterally correlating with his current symptoms. Patient failed multiple conservative management with worsening pain weakness and numbness in his lower extremity. Patient has been having difficulty performing activity of daily living. After discussing risks benefits of treatment options, patient elected proceed with surgery. Surgeon: Ale Mendoza Director Of Marketing Analytics: Lucrecia Donaldson Click Yes if Unassisted: No Anesthesia Type: General Operative Notes Closure Type: primary Specimen(s): none sent Prosthetic devices, grafts, tissues, transplants, or devices: Globus CREO MIS screws, Rise cages Applied: catheter Estimated Blood Loss (mL): 350 Blood products transfused: none Discharge Providers Provider Date of admission: 04/13/23 06:20 Discharge Date: 04/22/23 Primary care physician: Cally Salas MD Consults: 04/13/23 15:22 Consult to Occupational Therapy Evaluate & Treat Comment: Physician Instructions: Evaluate and treat Consult to Physical Therapy Evaluate & Treat Comment: Physician Instructions: Evaluate and Treat Discharge provider: Sanjay Zamora PA-C Summary Hospital Course Discharge Diagnosis: L3-4, L5-S1 foraminal stenosis, History spinal cord stimulator implantation, Lumbar radiculopathy; s/p L3-L4 and L5-S1 TLIF, posterior instrumentation L3-S1, removal of spinal cord stimulator and associated hardware Hospital Course: Mr Larry's hospital course was complicated by poor pain control and reports of assertive behavior that slowed his progress w/ PT. It was reported that he drinks at least 2 'good sized' glasses of whiskey every evening, and his behavioral changes may have been partially contributed to alcohol withdrawal. He did not exhibit signs of delirium during admission. He has been working with physical therapy during his inpatient care but progress has been going slowly. The patient does report he is able to ambulate with a walker short distance with assistance. On the morning of POD# 9, he is planning to discharge to SNF for further rehab prior to going home. He was eating and voiding without difficulty and his pain was controlled with a combination of oral medications: APAP, gabapentin, cyclobenzaprine, and oxycodone. Status at Discharge Cognitive/behavioral status at discharge: oriented Functional status at discharge: uses cane/walker Overall status at discharge: patient is back to baseline Time Spent with Patient Time spent: Less than 30 minutes Exam Vital Signs (past 8 hours): Fraction of Inspired Oxygen 24 SaO2/FiO2 Ratio 387 Oxygen Delivery Method Room Air Oxygen Flow Rate 0 Narrative Exam Narrative: Patient is found awake lying in bed. Dressing appears clean and dry. No pain to compression along the posterior calf or thighs bilaterally. Sensation is grossly intact along the lower extremities. Able to dorsiflex and plantar flex against resistance at the ankles bilaterally. Objective Labs 04/14/23 04:45 [facility] Medical History (Updated 03/26/19 @ 11:51 by Sandor Rivera MD) Diverticulosis HTN (hypertension) Surgical History (Updated 04/16/23 @ 10:28 by Lucrecia Donaldson PA-C) H/O colectomy Social History household members: spouse Smoking Status: Former smoker alcohol intake: current Discharge Assessment & Plan Assessment and Plan Assessment: L3-4, L5-S1 foraminal stenosis, History spinal cord stimulator implantation, Lumbar radiculopathy; s/p L3-L4 and L5-S1 TLIF, posterior instrumentation L3-S1, removal of spinal cord stimulator and associated hardware. Plan of Treatment: Plan to discharge to SNF today. 1) Continue multimodal pain management. 2) No lifting, twisting, deep bending, prolonged sitting. 3) keep dressing clean and dry, no soaking the incision site and posterior times, no topical ointments or creams to the incision site. 4) Follow up in 2 weeks at [facility] for as scheduled for postop appointment, wound check, staple removal. Discharge Plan Discharge Plan Patient Disposition: SNF Transfer to: [facility] Discharge orders & Medications Prescriptions: New acetaminophen 325 mg Tablet 650 mg PO Q6H PRN (Reason: Fever/Mild Pain (1-3)) Qty: 240 0RF cyclobenzaprine 10 mg Tablet 10 mg PO Q8HR PRN (Reason: Spasms) Qty: 60 0RF docusate sodium 100 mg Capsule 100 mg PO BID Qty: 60 1RF hydrocodone-acetaminophen 10-325 mg tablet 1 tab PO Q4-6H PRN (Reason: pain (scale score 4-6)) Qty: 60 0RF Continued clonidine HCl 0.1 mg tablet 0.1 mg PO DAILY pravastatin 40 mg tablet 40 mg PO DAILY allopurinol 100 mg tablet 100 mg PO DAILY aspirin [Adult Low Dose Aspirin] 81 mg tablet,delayed release (DR/EC) 81 mg PO DAILY tamsulosin 0.4 mg capsule 0.4 mg PO DAILY lisinopril 30 mg tablet 30 mg PO DAILY hydrochlorothiazide 25 mg tablet 25 mg PO DAILY gabapentin 300 mg capsule 600 mg PO TID Discontinued naproxen sodium [Aleve] 220 mg capsule 440 mg PO DAILY Follow up/Referrals: Cally Salas MD [Primary Care Provider] - Ale Mendoza MD [Physician] - 04/29/23 10:00 am (Follow up w/ Vazquez Zamora PA-C, at [facility] office in [place].) Diet/Activity/Treatments Diet: Diet as Tolerated Activity: No deep bending, twisting, lifting greater than 10 lb. No prolonged sitting. Cold/Heat Therapy: Heat to the low back for muscle spasm. Ice as needed for pain control. Skin/Wound/Dressing Care Report to your healthcare provider any signs of infection, such as:: chills, fever, night sweats, unusual drainage and unusual redness Dressing: May shower. Keep dressing clean and dry. If dressing becomes wet or dirty, may remove and replace with clean, dry gauze. No bathing or otherwise soaking incisions. Do not apply any creams, lotions, or ointments to incisions. Visit Report/Discharge Packet Instructions: DI for Prescription Opioid Use, DI for Transforaminal Lumbar Interbody Fusion Stand Alone Forms: Patient Portal/API, Surgery Discharge Discharge Data Primary Care Provider: Cally Salas Quality VTE Deep Vein Thrombosis/Pulmonary Embolism Present on Admission: No
[2023-04-22] MEDS: HYDROCODONE/ACET 10/325 TABLET 1 TAB PO ×2 (07:08→10:29)
[2023-04-22 08:12] VITALS: BP 124/74; PULSE 68; TEMP 36.7; O2SAT 93
--- NOTE | 2023-04-22 08:20 | CM.DPC ---
DCP Cont. Reviewed EMR and team rounds for status updates. Plan is for pt to d/c this morning at 11:00am, [facility] arranged for transport. Clinicals and scrips are being prepared and will be with patient's d/c packet, PASSAR faxed to facility. No further DCP needs identified at this time.
[2023-04-22] MEDS: ASPIRIN EC 81 MG TABLET PO (08:22)
[2023-04-22] MEDS: TAMSULOSIN 0.4 MG CAPSULE PO (08:22)
[2023-04-22 08:23] VITALS: BP 124/74; PULSE 58; PULSE 68
[2023-04-22] MEDS: lisinopriL 10 MG TABLET 30 MG PO (08:23)
[2023-04-22] MEDS: GABAPENTIN 300 MG CAPSULE 600 MG PO (08:23)
[2023-04-22] MEDS: cloNIDine 0.1 MG TABLET PO (08:23)
[2023-04-22] MEDS: allopurinoL 100 MG TABLET PO (08:23)
[2023-04-22] MEDS: DOCUSATE 100 MG CAPSULE PO (08:24)
[2023-04-22] MEDS: hydroCHLOROthiazide 25 MG TABLET PO (08:24)
[2023-04-22] MEDS: PRAVASTATIN 20 MG TABLET 40 MG PO (08:24)
--- NOTE | 2023-04-22 10:30 | OT.IP.TRT ---
Current Diagnoses Spondylolisthesis, lumbar region (04/13/23) Spinal stenosis, lumbar region with neurogenic claudication (04/13/23) Arthrodesis status (04/13/23) Surgery Performed Operation Date: 04/13/23 07:45 Actual Procedures p L3-4, L5-S1 TLIF with posterior instrumentation, L3-S1 PSF with instrumentation-Robot - Ale Mendoza MD s Spinal Cord Stimulator Removal - Ale Mendoza MD Occupational Therapy Treatment Note M2 OT-IP Current Condition Start: 04/14/23 13:12 Freq: Status: Active Protocol: Document 04/14/23 13:12 [facility] (Rec: 04/14/23 13:35 [facility] [id number]) Occupational Therapy Current Condition Current Condition Evaluation Date 04/14/23 Treatment Diagnosis S/P L3-4, L5-S1 TLIF with post inst L3-S1 Diagnosis Onset Date 04/13/23 Post Operative Precautions Lumbar Precautions Log Roll,No Twisting,Limit Bending,Lifting Restriction of 10 lbs,Gait Belt above Incisional Area M3 OT- IP Subjective and Pain Start: 04/14/23 13:12 Freq: Status: Active Protocol: Document 04/22/23 10:30 [facility] (Rec: 04/22/23 10:34 [facility] [id number]) OT- Subjective Occupational Therapy Visit Type Type Treatment Note Visit Start Time 10:10 Visit Stop Time 10:33 Occupational Therapy Visit Comments Patient Comments Pt wanting to shower. Patient/Caregiver Goals To go home. OT Pain Assessment Pain When Pain Assessed During Mobility Pain Present Pain Present Pain Reported M4 OT- IP ADL's Start: 04/14/23 13:12 Freq: Status: Active Protocol: Document 04/22/23 10:30 [facility] (Rec: 04/22/23 10:34 [facility] [id number]) OT AYP-Mnmc-Bmnpunv General Evaluation Self-Feeding Ability Independent OT ADL-Grooming Comments OT Grooming Comments Not performed. OT ADL-Oral Care Comments Oral Care Comments Not performed. OT ADL-Dressing General Eval Lower Body Dressing Ability Maximum Assistance Comments OT Dressing Comments Pt still needing MAXA X1 for all LB dressing needs. OT ADL-Bathing Bathing Type Bathing Type Shower General Evaluation Bathing Ability Maximal Assistance Comments OT Bathing Comments Assist for his feet, pericare and back. M5 OT- IP IADL's Start: 04/14/23 13:12 Freq: Status: Active Protocol: Document 04/14/23 13:12 [facility] (Rec: 04/14/23 13:35 [facility] [id number]) OT-Instrumental Activities of Daily Living Deficits IADL Deficits Identified Deficits Home Safety Awareness Awareness of Need for Assistance at Home Decreased Awareness Home Safety Comments Pt very insistent on his care at this time. Pt insists his will be able to assist him for all his needs. Meal Preparation Meal Preparation Caregiver Provides Assist Director Of Informatics Director Of Informatics Caregiver Provides Assist M6 OT- IP Functional Cognition Start: 04/14/23 13:12 Freq: Status: Active Protocol: Document 04/22/23 10:30 [facility] (Rec: 04/22/23 10:34 [facility] [id number]) Cognitive Factors Limiting Selfcare Function Cognitive Comments Cognitive Assessment Comments Pt much more alert and cooperative. M7 OT- IP Mobility and Balance Start: 04/14/23 13:12 Freq: Status: Active Protocol: Document 04/22/23 10:30 [facility] (Rec: 04/22/23 10:34 [facility] [id number]) OT-Transfer Assessment Sit to and From Stand Sit to and from Stand Moderate Assistance,Maximum Assistance,1 Person Assistance Comments Mobility Comments Heavy use of his hand on the grab bar in the shower to stand. VC to push up from surfaces prior to standing. Pt still tends to hold onto the FWW to stand. OT- Balance Assessment Sitting Balance and Reactions Static Sitting Balance Ability Good Dynamic Sitting Balance Ability Fair Standing Balance and Reactions Static Standing Balance Ability Fair Dynamic Standing Balance Ability Fair Comments Other Balance Tests/Deviations/Treatment Pt a little more steady on his : feet especially with his shoes on. M8 OT- IP Objective Assessments Start: 04/14/23 13:12 Freq: Status: Active Protocol: Document 04/14/23 13:12 [facility] (Rec: 04/14/23 13:35 [facility] [id number]) OT Gross Range of Motion Upper Extremity Range of Motion Assessment Left Impaired OT Strength Upper Extremity Strength Assessment Left Impaired M9 OT- IP Assessment and Plan Start: 04/14/23 13:12 Freq: Status: Active Protocol: Document 04/22/23 10:30 [facility] (Rec: 04/22/23 10:34 [facility] [id number]) OT Summary Assessment and Plan Potential Rehabilitation Potential Good Analytic Complexity at Evaluation Moderate Summary Progress Towards Goals Progressing Toward Goals Assessment Summary Pt being discharged to skilled rehab. Goals Grooming Goal Independent Dressing Goal Minimal Assistance Toileting Goal Standby Assistance Bathing Goal Minimal Assistance Toilet Transfer Goal Independent Shower Transfer Goal Standby Assistance Days to Meet Goals 24 Frequency of Treatment Frequency Of Treatment Once a Day Treatment Plan OT Treatment Plan ADL Training,Functional Mobility,Patient/Family Education,Discharge Planning Discharge Recommendations OT Discharge Recommendations SNF Rehab Home Equipment Needs FWW, sock aid, BSC Transportation Needs at Discharge Wheelchair/Cabulance
--- NOTE | 2023-04-22 11:07 | PC.NURSE ---
Addendum entered by Lupe Khoury R.N. 04/22/23 11:13: RN called to [facility] to give report was transferred to [facility] voicemail. RONALD. Original Note: Patient is A&OX4 VSS, afebrile on RA. PA at beside clearing him for discharge this a.m. to SNF.He complains of pain 8/10 and reports it has improved after hydrocodone but rates pain 7-8/10. He is weak and unsteady with FWW. Able to shower this a.m. with OT and SUPPLY CHAIN DESIGN MANAGER. He verbalizes understanding of site care, follow up appointment, medications, and activity limitations. at bedside this a.m. when facility transporter arrives at 1030 to transport patient to [facility]. RN confirmed paperwork all in packet. He is escorted with all of his belongings via w/ch to transporter vehicle at 1046 a.m. with all of his belongimgs
--- NOTE | 2023-04-22 11:41 | PC.NURSE ---
Late Entry: written provider discharge order updated in EMR.
== END 2023-04-22 10:46 | DRG 454 ==
LOC: AC 08:22 → ICU 12:50 → AC 04-20 11:51
PROVIDERS: Admitting Provider Orthopaedic Surgery Orthopaedic Surgery of the Spine; PCP Family Medicine; Referring Provider Orthopaedic Surgery Orthopaedic Surgery of the Spine; Visit Provider Orthopaedic Surgery Orthopaedic Surgery of the Spine
PROC: 0SG00AJ Fusion of Lumbar Vertebral Joint with Interbody Fusion Device, Posterior Approach, Anterior Column, Open Approach (ICD-10-PCS; principal; 2023-04-13 07:45)
PROC: 0SG00AJ Fusion of Lumbar Vertebral Joint with Interbody Fusion Device, Posterior Approach, Anterior Column, Open Approach (ICD-10-PCS; CPT 63685; 2023-04-13 07:45)
DX: M48.062 Spinal stenosis, lumbar region with neurogenic claudication (principal); F10.239 Alcohol dependence with withdrawal, unspecified; M48.07 Spinal stenosis, lumbosacral region; M43.16 Spondylolisthesis, lumbar region; M54.16 Radiculopathy, lumbar region; M96.1 Postlaminectomy syndrome, not elsewhere classified; G89.18 Other acute postprocedural pain; I10 Essential (primary) hypertension; Z87.891 Personal history of nicotine dependence; Z98.1 Arthrodesis status
CPT/HCPCS: 36415; 72100; 76000; 85014; 85018; 87797; 94760; 97116; 97163; 97166; 97530; 97535; C1713; C9290; J0171; J0330; J0690; J1100; J1170; J1885; J2250; J2405; J2704; J3010; J3410

== ENCOUNTER → 2023-10-04 08:52 | Outpatient (CLI) | payer MEDICARE, SELFPAY ==
[2023-04-13 06:43] VITALS: BMI 33.7
--- NOTE | 2023-10-04 08:53 | DI.US.S_ITS ---
PROCEDURE: US RETRO PERITONEAL LIMITED INDICATIONS: PT DUE FOR REPEAT AAA TECHNIQUE: Real time scanning was performed of the aorta and iliac arteries, with image documentation. COMPARISON: None. FINDINGS: Aorta: Proximal aorta is not well seen due to overlying bowel gas. Mid-aorta measures 2.2 centimeter, previously 2.5 cm. Distal aortic diameter is 3.0 centimeter, previously 3.2 cm. Iliac arteries: Right common iliac artery measures 1.5 cm. Left common iliac artery measures 1.6 cm. IMPRESSION: Similar mild aortic aneurysm, accounting for differences in technique. Three year follow-up is recommended. Dictated by: Silverio Ford M.D. on 10/04/2023 at 11:06 Approved by: Silverio Ford M.D. on 10/04/2023 at 11:07
== END ==
LOC: US 08:53
PROVIDERS: PCP Family Medicine; Referring Provider Family Medicine; Visit Provider Family Medicine
DX: I71.40 Abdominal aortic aneurysm, without rupture, unspecified (principal)
CPT/HCPCS: 76775

== ENCOUNTER → 2024-03-28 10:27 | Outpatient (CLI) | payer MEDICARE, SELFPAY ==
[2023-04-13 06:43] VITALS: BMI 33.7
--- NOTE | 2024-03-28 10:29 | DI.MRI.S_ITS ---
PROCEDURE: MR HEAD/BRAIN WO CON INDICATIONS: tremors, parkinsonism TECHNIQUE: Non-contrast axial T1 spin echo, axial T2 fast spin echo, sagittal and axial FLAIR, coronal T2 fast spin echo, axial gradient echo, axial diffusion and ADC through the brain. COMPARISON: None. FINDINGS: Image quality: Excellent. CSF spaces: Ventricles appear symmetric in size and shape. Basal cisterns are patent. No extra-axial fluid collections. Brain: No intracranial bleeds or mass effects. There is mild cerebral volume loss for age. There are mild periventricular and deep white matter chronic small vessel ischemic changes. Brainstem appears normal. Diffusion-weighted images show no acute infarct. No chronic ischemic insults. Normal intravascular flow voids are present. Skull and face: Calvarial bone marrow is normal in signal. Orbits are normal. Sinuses: Mild mucosal thickening in the bilateral maxillary sinuses. The mastoids are clear. IMPRESSION: No acute intracranial disease process. No acute or chronic infarcts. Mild, diffuse cerebral volume loss. Mild periventricular and subcortical white matter chronic microvascular ischemic change. Dictated by: Emerita Mcnair MD, PhD on 03/28/2024 at 11:50 Approved by: Emerita Mcnair MD, PhD on 03/28/2024 at 11:52
== END ==
LOC: MRI 10:28
PROVIDERS: PCP Family Medicine; Referring Provider Psychiatry & Neurology Neurology; Visit Provider Psychiatry & Neurology Neurology
DX: G20.C Parkinsonism, unspecified (principal); R25.1 Tremor, unspecified; R26.89 Other abnormalities of gait and mobility
CPT/HCPCS: 70551

== ENCOUNTER 2024-07-12 07:27 | Day surgery (SDC) | payer MEDICARE, SELFPAY ==
[2023-04-13 06:43] VITALS: BMI 33.7
[2024-07-12 08:45] VITALS: BP 180/96; PULSE 87; RESP 17; TEMP 36.3; O2SAT 97
[2024-07-12] MEDS: LACTATED RINGERS 1,000 ML 42 ML IV (08:52)
--- NOTE | 2024-07-12 09:27 | P.HP_ITS ---
History of Present Illness History of Present Illness Date Patient Seen: 07/12/24 Time Patient Seen: 09:27 Chief complaint: SDC Narrative: Sanjay Larry is a 74 year old man with a history of polyps. See the prior office note for details. [facility] Medical History Prostate cancer Carpal tunnel syndrome GERD (gastroesophageal reflux disease) Diverticulosis HTN (hypertension) Surgical History H/O shoulder replacement History of knee replacement S/P lumbar fusion H/O colectomy Family History Father Hypertension Social History marital status: household members: spouse lives independently: Yes occupational status: previously employed Smoking Status: Former smoker alcohol intake: current substance use type: does not use Meds Home Medications and Allergies Home Medications Medication Instructions Recorded Confirmed Type allopurinol 100 mg tablet 100 mg PO DAILY 05/25/18 07/12/24 History clonidine HCl 0.1 mg tablet 0.1 mg PO DAILY 05/25/18 07/12/24 History gabapentin 300 mg capsule 600 mg PO TID 05/25/18 07/12/24 History hydrochlorothiazide 25 mg tablet 25 mg PO DAILY 05/25/18 07/12/24 History lisinopril 30 mg tablet 30 mg PO DAILY 05/25/18 07/12/24 History pravastatin 40 mg tablet 40 mg PO DAILY 05/25/18 07/12/24 History tamsulosin 0.4 mg capsule 0.4 mg PO DAILY 05/25/18 07/12/24 History hydrocodone 10 mg-acetaminophen 1 tab PO Q4-6H PRN pain (scale 04/20/23 07/12/24 Rx 325 mg tablet score 4-6) #60 tabs naproxen sodium [Aleve] PO BID 04/18/24 04/18/24 History sodium,potassium,mag sulfates 17.5 See Rx Instructions PO .COMPLEX 04/18/24 Rx gram-3.13 gram-1.6 gram oral soln #354 mL (Suprep Bowel Prep Kit) primidone 50 mg tablet 50 mg PO DAILY 07/12/24 07/12/24 History Allergies Allergy/AdvReac Type Severity Reaction Status Date / Time No Known Drug Allergies Allergy Verified 07/12/24 08:42 Exam Vital Signs (past 8 hours): - 07/12/24 08:45 Temperature 97.4 F L Pulse Rate 87 Respiratory Rate 17 Blood Pressure 180/96 H Pulse Oximetry 97 Oxygen Delivery Method Room Air Oxygen Delivery Method Room Air Const General: healthy appearing Assessment & Plan Assessment and plan (1) History of colon polyps: Status: Acute Plan Colonoscopy Time-Based Coding :: [TOTAL MINUTES] spent with patient and on the chart (including review of chart, obtaining history, exam, reviewing outside data, placing orders, documenting exam and treatment plan, and counseling patient) on [DATE]. PROFEE Supervisory Clerk Document charge(s): No
[2024-07-12 09:56] VITALS: BP 102/61; PULSE 74; RESP 18; TEMP 36.7; O2SAT 94
--- NOTE | 2024-07-12 09:59 | PM.OP.COLON ---
Operative Date/Time/Diagnoses Date of procedure: 07/12/24 Time of procedure: 09:59 Pre-op diagnosis: History of polyps Post-op diagnosis: same Procedure & Clinicians Study performed: Colonoscopy Same procedure as scheduled: Yes Surgeon: Jonas Cagle Procedure Notes Procedure in detail: Surgeon: Jonas Cagle MD Anesthesia: Miriam Calderon CRNA Procedure: The patient was brought to the endoscopy suite, placed in left lateral decubitus position. The patient was connected to monitoring devices. A time-out was performed. Sedation was administered. Once the patient was adequately sedated, a digital rectal exam was performed and was normal. The scope was then inserted and advanced to the cecum where the appendiceal orifice was identified and photographed. The scope was then slowly withdrawn over greater than 6 minutes. The mucosa was thoroughly inspected. There was pandiverticulosis. There was evidence of prior colon resection with an anastomosis in the upper rectum. The scope was retroflexed in the rectum. No other abnormalities were found. The scope was straightened and removed. The patient was awakened and brought to recovery. Scope withdrawal time: 6 minutes Sedation time: 11 minutes EBL: 0 Findings: Pandiverticulosis and colorectal anastomosis in the upper rectum Post-procedure Disposition: PACU
[2024-07-12 10:01] VITALS: BP 139/100; PULSE 72; RESP 19; O2SAT 97
[2024-07-12 10:06] VITALS: BP 136/89; PULSE 73; RESP 20; TEMP 36.3; O2SAT 97
== END 2024-07-12 10:26 | disposition home or self-care (01) ==
PROVIDERS: PCP Family Medicine; Referring Provider Surgery; Visit Provider Surgery
PROC: 0DJD8ZZ Inspection of Lower Intestinal Tract, Via Natural or Artificial Opening Endoscopic (ICD-10-PCS; CPT 45378; principal; 2024-07-12 12:15)
DX: Z12.11 Encounter for screening for malignant neoplasm of colon (principal); Z86.0100 Personal history of colon polyps, unspecified; K57.30 Diverticulosis of large intestine without perforation or abscess without bleeding
CPT/HCPCS: G0121; J2704